=== PATIENT | female | born 1950 | race Caucasian/White ===

== ENCOUNTER 2020-06-22 09:59 | Inpatient (IN) | payer OTHER ==
[~2020-06-22] VITALS: Ht 167.6 cm; Wt 90.6 kg
[2020-06-22] VITALS (20 sets, daily range): BP systolic 84–114; BP diastolic 47–67
--- NOTE | 2020-06-22 10:18 | PDOC1 ---
History and Physical Date of Admission Date of Admission DATE: 06/22/20 TIME: 10:09 History of Present Illness History of Present Illness Ms. 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 On 06/16/2020 she began having symptoms of diarrhea and shortness of breath and went to the ED to have COVID-19 testing, she was notified of the results on 06/17/2020 and asked to quarantine at home for 14 days. Over the course the next 5 days she became progressively more weak had fever and chills and began having myalgias and worsening diarrhea with little bit of abdominal pain. She returned to the ED on 06/21/2020 at [facility] and was found to be hypoxic. ABG on 06/21/2020 7.472/30 5.1/94.3 with HCO3 of 26.2 on nonrebreather 10 L labs on 06 21 sodium 135, K3.2, chloride 99, CO2 25, BUN 17, creatinine 1, glucose 115, lactate 1.9, calcium 8, ferritin 1491, bilirubin 0.4, AST 103, ALT 5 8, AL K phosphatase 62 troponin negative, CRP 129.6, total protein 6.3, albumin 2.7 prealbumin 9, lipase 185, B12 995, procalcitonin 0.40, TSH 1.427, d-dimer 1.16, WBC 7.1, Hb 14.1, platelets 302 chest x-ray on 06 21 read as worsening interstitial and airspace opacities in the right upper lobe and left lung base and worsening interstitial opacities in the right lung base compatible with multifocal pneumonia EKG appears normal sinus rhythm with heart rate approximately 85 bpm with normal axis some inferior T wave changes that are nonspecific no ST segment changes. Seen in our ICU transitioning from nonrebreather to Vapotherm with a significant desaturation into the 70s during transition with quick improvement to 94% on Vapotherm. She is still complaining of weakness and diarrhea to [place] Past Medical History Cardiovascular: No pertinent hx Past Surgical History Past Surgical History 2006 perforated peptic ulcer surgery. Tubal ligation surgery Past Surgical History: Tubal Ligation, Other (Perforated peptic ulcer) Family History Family History: High Cholestrol Social History Smoke: Quit (2005) ALCOHOL: none Drugs: None Allergies Allergies: Coded Allergies: No Known Drug Allergies (Unverified , 06/22/20) ROS General: YES: Chills, Fatigue, Malaise; No: Night Sweats, Appetite, Other PSYCHOLOGICAL ROS: No: Anxiety, Behavioral Disorder, Concentration difficultie, Decreased libido, Depression, Disorientation, Hallucinations, Hostility, Irritablity, Memory difficulties, Mood Swings, Obsessive thoughts, Physical abuse, Sexual abuse, Sleep disturbances, Suicidal ideation, Other Eyes: No Blurry vision, No Decreased vision, No Double vision, No Dry eyes, No Excessive tearing, No Eye Pain, No Itchy Eyes, No Loss of vision, No Photophobia, No Scotomata, No Uses contacts, No Uses glasses, No Other HEENT: No: Heacaches, Visual Changes, Hearing change, Nasal congestion, Nasal discharge, Oral lesions, Sinus pain, Sore Throat, Epistaxis, Sneezing, Snoring, Tinnitus, Vertigo, Vocal changes, Other ALLERGY AND IMMUNOLOGY: No: Hives, Insect Bite Sensitivity, Itchy/Watery Eyes, Nasal Congestion, Post Nasal Drip, Seasonal Allergies, Other Hematological and Lymphatic: YES: Blood Transfusions; No: Bleeding Problems, Blood Clots, Brusing, Night Sweats, Pallor, Swollen Lymph Nodes, Other ENDOCRINE: No: Breast Changes, Galactorrhea, Hair Pattern Changes, Hot Flashes, Malaise/lethargy, Mood Swings, Palpitations, Polydipsia/polyuria, Skin Changes, Temperature Intolerance, Unexpected Weight Changes, Other Breast: No New/Changing Breast Lumps, No Nipple changes, No Nipple discharge, No Other Respiratory: YES: Cough, Shortness of breath, SOB with excertion, Tachypnea, Wheezing; No: Hemoptysis, Orthopnea, Pleuritic Pain, Sputum Changes, Stridor, Other Cardiovascular: No Chest Pain, No Palpitations, No Orthopnea, No Paroxysmal Noc. Dyspnea, No Edema, No Lt Headedness, No Other Gastrointestinal: Yes Nausea, Yes Abdominal Pain, Yes Diarrhea; No Vomiting, No Constipation, No Melena, No Hematochezia, No Other Genitourinary: No Dysuria, No Frequency, No Incontinence, No Hematuria, No Retention, No Discharge, No Urgency, No Pain, No Flank Pain, No Other, No , No , No , No , No , No , No Musculoskeletal: Yes Muscular Weakness; No Gait Disturbance, No Joint Pain, No Joint Stiffness, No Joint Swelling, No Muscle Pain, No Pain In:, No Swelling In:, No Other Neurological: No Behavorial Changes, No Bowel/Bladder ControlChng, No Confusion, No Dizziness, No Gait Disturbance, No Headaches, No Impaired Coord/balance, No Memory Loss, No Numbness/Tingling, No Seizures, No Speech Problems, No Tremors, No Visual Changes, No Weakness, No Other Skin: No Dry Skin, No Eczema, No Hair Changes, No Lumps, No Mole Changes, No Mottling, No Nail Changes, No Pruritus, No Rash, No Skin Lesion Changes, No Other, No Acne Physical Exam General: Alert, Oriented X3, Cooperative, moderate distress HEENT: Atraumatic, PERRLA, EOMI, Mucous membr. moist/pink Lungs: Other (Bilateral rhonchi) Heart: S1S2, RRR, no thrills, no rubs, no gallops, no murmurs Abdomen: Normal bowel sounds, Soft, No tenderness, No hepatosplenomegaly, No masses Rectal Exam: not examined Extremities: No clubbing, No cyanosis, No edema, Normal pulses, No tenderness/swelling Skin: No rashes, No breakdown, No significant lesion Neuro: Normal gait, Normal speech, Strength at 5/5 X4 ext, Normal tone, Sensation intact, Cranial nerves 3-12 NL, Reflexes 2+ Psych/Mental Status: Mental status NL, Mood NL Images Images CXR: 06/21/2020 at [facility] VTE Prophylaxis Ordered VTE Prophylaxis Devices: No VTE Pharmacological Prophylaxi: Yes Assessment/Plan Assessment/Plan A/P: Acute hypoxic respiratory failuresecondary to SARSCo.2 pneumonia. Continue supportive therapy, steroids room to severe protocol initiated on 06 21 will continue here. Consult ID and pulmonology SARS- COV2 pneumonia -continue IV Solu-Medrol wean O2 as tolerated I discussed with pulmonology to move to a negative pressure room if her desaturations worsen and she may need BiPAP.. Will try experimental drug to severe and convalescent plasma therapies with ID and pulmonology. Hypokalemiawill replace, check magnesium level Diarrhealikely COVID-19 related. Will check for C. difficile per protocol if more than 3 bowel movements in a day Transaminitis also likely related COVID-19, will monitor Severe protein calorie malnutritionlikely related to above FEN - General diet PPX - lovenox FULL CODE Dispo - ICU for above CC time 38 minutes Justicifation of Admission Dx: Justifications for Admission: Justification of Admission Dx: Yes Respiratory Failure: Severe Resp Distress FRANKLYN DOMINIQUE MD Jun 22, 2020 10:18
[2020-06-22] MEDS ORDERED: ONDANSETRON PF 4 MG/2 ML VIAL. IV PRN (10:30)
[2020-06-22] MEDS ORDERED: ACETAMINOPHEN 325 MG TABLET. PO PRN (10:30)
[2020-06-22] MEDS ORDERED: ZOLPIDEM 5 MG TABLET. PO PRN (10:30)
[2020-06-22] MEDS ORDERED: PIP/TAZO PER PHARMACY MC PRN (11:00)
--- NOTE | 2020-06-22 11:09 | RAD ---
EXAM: CHEST AP ONLY INDICATION: Reason: COVID 19 / Spl. Instructions: / History: . TECHNIQUE: Single view COMPARISON: None FINDINGS: The heart size is normal. The great vessels appear unremarkable. There is no hilar or mediastinal mass. Lungs show multifocal bilateral airspace opacities, most confluent in the right upper lobe. There is no pleural effusion or pneumothorax. There are no significant osseous abnormalities. IMPRESSION: Bilateral pneumonia, more confluent in the right upper lobe. Electronically signed by: Irene Hsu MD (06/22/2020 11:06 AM) [id number]
[2020-06-22 11:36] LABS: BASE EXCESS ABG -3 mmol/L (-3-3); HCO3 ABG 21 mmol/L (21-28); PCO2 ABG 33 mmHg (35-46); PO2 ABG 64 mmHg (65-108); SAT O2 ABG 92 % (92-99)
[2020-06-22 11:52] LABS: ALBUMIN 2.7 g/dL (3.4-5.0); ALBUMIN/GLOBULIN RATIO 0.7 (1.0-1.7); CREATININE 0.9 mg/dL (0.6-1.0); GFR 62.1; POTASSIUM 3.8 mmol/L (3.5-5.1); TOTAL BILIRUBIN 0.3 mg/dL (0.2-1.0); TOTAL PROTEIN 6.4 g/dL (6.4-8.2)
--- NOTE | 2020-06-22 12:00 | NUR ---
Pt arrived to 112 via EMS from [place] for covid +. Pt placed on bed and placed on ICU monitors. VSS. Vapotherm applied at 40L/100%. Pt does not seem to be in any distress. Dr. Bowers and Dr. Daly at bedside placing orders. Pt received Solumedrol and Zosyn. Pt consented to receiving Covid plasma. All questions answered. Call light at bedside for pt.
[2020-06-22] MEDS: ENOXAPARIN 40 MG/0.4 ML SYRINGE. SQ SCH ×2 (12:12→21:51)
[2020-06-22] MEDS: methylPREDNISolone SOD SUCC PF 40 MG/ML VIAL. IV SCH ×3 (12:12→21:51)
[2020-06-22] MEDS: PIPERACILLIN/TAZOBACTAM 3.375 GM in IV NORMAL SALINE 50ML 50 ML IV SCH ×2 (12:12→18:00)
[2020-06-22] MEDS: ZINC SULFATE 220 MG CAPSULE. PO SCH (12:12)
--- NOTE | 2020-06-22 12:49 | CONS ---
DATE OF CONSULTATION: 06/22/2020 PULMONARY CONSULTATION REASON FOR CONSULTATION: Hypoxic respiratory failure, COVID pneumonia. HISTORY OF PRESENT ILLNESS: The patient is a 70-year-old female who works at [employer] with no known past medical history. She was admitted at [facility] for worsening hypoxia after she was diagnosed with COVID-19 pneumonia. The patient was notified about the results on 06/17/2020 and was asked to be home quarantine for 14 days. However, the last 5 days before hospitalization at [facility], she had become progressively weak, had fever and had chills as well. The patient was placed on a nonrebreather mask and she was hypoxic. Her chest x-ray has shown diffuse bilateral infiltrates. Since [facility] ran out of resources and she was waiting in the ER on a nonrebreather mask, they requested to accept her as a transfer and Dr. Daly who is the hospitalist accepted her as a transfer. At present, she is comfortable. She was transferred on nonrebreather mask. I have placed her on Vapotherm at 40 liters flow and 100% FiO2. X-rays have been ordered. I have reviewed labs from outside facility. Her lactic acid was 1.9. AST was elevated at 103. Her chest x-ray reports were reviewed as well. PAST MEDICAL HISTORY: No chronic medical problem. PAST SURGICAL HISTORY: Perforated peptic ulcer surgery in 2005, history of tubal ligation surgery. FAMILY HISTORY: Dyslipidemia. SOCIAL HISTORY: She no longer smokes. She had minimal tobacco history. ALLERGIES: None. CURRENT MEDICATIONS: Reviewed as listed in the [facility] including Lovenox and IV steroids. REVIEW OF SYSTEMS: Pertinent positive discussed in my present illness, otherwise noncontributory. A 12-point system review was obtained. PHYSICAL EXAMINATION: On examination, which was done visual due to COVID pandemia. Blood pressure stable, pulse ox 95% on current Vapotherm at 40 liters and 100% FiO2. She is in no obvious respiratory distress. She is comfortable. Trace edema on the legs. IMAGING: Chest x-ray has been ordered by the x-rays from outside facility shows bilateral patchy infiltrates. LABORATORY DATA: Labs from [place] have been reviewed. IMPRESSION: 1. Acute hypoxic respiratory failure secondary to COVID-19 pneumonia and acute lung injury. 2. No significant tobacco history. 3. Abnormal chest x-ray consistent with COVID-19 pneumonia. 4. Mildly increased liver function tests. RECOMMENDATIONS: 1. Continue present Vapotherm at 40 liters flow and 100% FiO2. 2. Monitor the course of treatment. If needed, we may use BiPAP and a negative flow room. 3. Add empiric antibiotics. 4. IV steroids since her A-a gradient is widened. 5. Monitor for inflammatory markers. 6. High dose DVT prophylaxis. 7. Consider plasma 8. Discussed with Dr. Daly and discussed with RN and RT. We will follow along with you. Discussed with the patient. Critical care time 37 minutes, which includes review of the chart, labs and data. STEPHEN VALADEZ MD DR: RONIT/moira JOB#: [id number] / [id number] BENJA
[2020-06-22] MEDS: REMDESIVIR 100mg in NORMAL SALINE 250ML X 4 DAYS IV SCH (13:03)
[2020-06-22 13:12] LABS: BASO % 0 % (0-3); EOS % 0 % (0-3); HEMATOCRIT 38.5 % (36.0-47.0); LYMPH # 0.6 x10^3/uL (1.0-4.8); LYMPH % 14 % (24-48); MEAN CORPUSCULAR HEMOGLOBIN 30 pg (25-35); MEAN CORPUSCULAR HGB CONC 34 g/dL (31-37); MEAN CORPUSCULAR VOLUME 89 fL (79-100); MONO # 0.3 x10^3/uL (0.0-1.1); MONO % 6 % (0-9); NEUT # 3.7 x10^3/uL (1.8-7.7); NEUT % 81 % (31-73); PLATELET COUNT 297 x10^3/uL (140-400); PROTHROMBIN TIME PATIENT 13.9 SEC (11.7-14.0); RED BLOOD COUNT 4.34 x10^6/uL (3.50-5.40); RED CELL DISTRIBUTION WIDTH 13.9 % (11.5-14.5); WHITE BLOOD COUNT 4.6 x10^3/uL (4.0-11.0)
--- NOTE | 2020-06-22 14:22 | NUR ---
1400 Solumedrol non administered due to giving previous dose an hour and a half ago.
--- NOTE | 2020-06-22 14:37 | CONS ---
DATE OF CONSULTATION: REQUESTING PHYSICIAN: Jasper Daly MD. REASON FOR CONSULTATION: COVID-19 positive. HISTORY OF PRESENT ILLNESS: This is a 70-year-old female with a history of peptic ulcer disease. Other than that, she is essentially healthy, she says. 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 The patient was diagnosed with COVID-19 on 06/16/2020. The patient was sent home and was quarantined, but then she started having shortness of breath. She had fever and hypoxia, hence came in. The patient came to the [employer]. The patient was admitted and the oxygen requirement went significantly up, hence she was transferred here for further management. The patient denies any nausea, vomiting or diarrhea. Denies any chest pain, abdominal pain, urinary symptoms or bowel symptoms. The patient has been put on steroids and Zosyn. PAST MEDICAL HISTORY: Positive for perforated ulcer surgery done in the past, tubal ligation done. Otherwise, she is healthy, she says. SOCIAL HISTORY: Negative for smoking, alcohol or illicit drug use. ALLERGIES: No known drug allergies. CURRENT MEDICATIONS: Reviewed. REVIEW OF SYSTEMS: As per HPI, all other systems reviewed and are negative. PHYSICAL EXAMINATION: GENERAL: Alert and oriented female, not in distress. VITAL SIGNS: Stable, temperature 97.8, pulse 86, respirations 30, blood pressure 84/56. The patient is requiring 40% FiO2 with Vapotherm. HEENT: NAD. NECK: Supple, no JVP, no lymphadenopathy. LUNGS: Clear. HEART: S1, S2 regular. ABDOMEN: Benign. EXTREMITIES: No edema or cyanosis. SKIN: Unremarkable. NEUROLOGIC: The patient is alert, awake and appropriate. No focal neurologic deficit. LABORATORY DATA: Her AST is 103, ALT is 58. WBC 7.1. BUN and creatinine is normal. Chest x-ray showed bilateral pulmonary infiltrate. IMPRESSION: 1. COVID-19 positive. 2. Bilateral pulmonary infiltrate. 3. Hypoxemia. 4. Obesity. RECOMMENDATIONS: Continue current management. I did discuss with the patient about convalescent plasma and remdesivir. The patient is in agreement with that. We will start with the convalescent plasma and remdesivir. Thank you very much, Dr. Daly, for giving me the opportunity to participate in this patient's care. GLORIA OHARA MD DR: ECOH/moira JOB#: [id number] / [id number]
[2020-06-22] MEDS: STERILE WATER for RESP 1,000 ML BAG. INH PRN (16:44)
[2020-06-23] VITALS (24 sets, daily range): BP systolic 94–129; BP diastolic 42–67
[2020-06-23] MEDS: PIPERACILLIN/TAZOBACTAM 3.375 GM in IV NORMAL SALINE 50ML 50 ML IV SCH ×4 (00:02→17:33)
[2020-06-23] MEDS: STERILE WATER for RESP 1,000 ML BAG. INH PRN ×2 (04:47→16:11)
[2020-06-23] MEDS: methylPREDNISolone SOD SUCC PF 40 MG/ML VIAL. IV SCH ×3 (05:50→21:39)
[2020-06-23 07:09] LABS: BASO % 0 % (0-3); EOS % 0 % (0-3); HEMATOCRIT 37.9 % (36.0-47.0); HEMOGLOBIN 12.7 g/dL (12.0-15.5); LYMPH # 0.7 x10^3/uL (1.0-4.8); LYMPH % 8 % (24-48); MEAN CORPUSCULAR HEMOGLOBIN 30 pg (25-35); MEAN CORPUSCULAR HGB CONC 34 g/dL (31-37); MEAN CORPUSCULAR VOLUME 89 fL (79-100); MONO # 0.5 x10^3/uL (0.0-1.1); MONO % 5 % (0-9); NEUT # 7.5 x10^3/uL (1.8-7.7); NEUT % 87 % (31-73); PLATELET COUNT 355 x10^3/uL (140-400); RED BLOOD COUNT 4.27 x10^6/uL (3.50-5.40); RED CELL DISTRIBUTION WIDTH 14.3 % (11.5-14.5); WHITE BLOOD COUNT 8.6 x10^3/uL (4.0-11.0)
--- NOTE | 2020-06-23 07:55 | PDOC ---
[employer] PROGRESS NOTE Date of Service DOS: DATE: 06/23/20 TIME: 07:54 Chief Complaint Chief Complaint A/P: Acute hypoxic respiratory failuresecondary to SARSCo.2 pneumonia. Continue supportive therapy, steroids room to severe protocol initiated on 06 21 will continue here. Consult ID and pulmonology SARS- COV2 pneumonia -continue IV Solu-Medrol wean O2 as tolerated I discussed with pulmonology to move to a negative pressure room if her desaturations worsen and she may need BiPAP.. Will try experimental drug to severe and convalescent plasma therapies with ID and pulmonology. Hypokalemiawill replace, check magnesium level Diarrhealikely COVID-19 related. Will check for C. 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 On 06/16/2020 she began having symptoms of diarrhea and shortness of breath and went to the ED to have COVID-19 testing, she was notified of the results on 06/17/2020 and asked to quarantine at home for 14 days. Over the course the next 5 days she became progressively more weak had fever and chills and began having myalgias and worsening diarrhea with little bit of abdominal pain. She returned to the ED on 06/21/2020 at [facility] and was found to be hypoxic. ABG on 06/21/2020 7.472/30 5.1/94.3 with HCO3 of 26.2 on nonrebreather 10 L labs on 06 21 sodium 135, K3.2, chloride 99, CO2 25, BUN 17, creatinine 1, glucose 115, lactate 1.9, calcium 8, ferritin 1491, bilirubin 0.4, AST 103, ALT 5 8, AL K phosphatase 62 troponin negative, CRP 129.6, total protein 6.3, albumin 2.7 prealbumin 9, lipase 185, B12 995, procalcitonin 0.40, TSH 1.427, d-dimer 1.16, WBC 7.1, Hb 14.1, platelets 302 chest x-ray on 8 read as worsening interstitial and airspace opacities in the right upper lobe and left lung base and worsening interstitial opacities in the right lung base compatible with multifocal pneumonia EKG appears normal sinus rhythm with heart rate approximately 85 bpm with normal axis some inferior T wave changes that are nonspecific no ST segment changes. Seen in our ICU on Vapotherm. She is still complaining of weakness and diarrhea to me, 2 BM this morning. Afebrile. Still with cough today. Vitals/I&O Vitals/I&O: Vital Signs Date Time Temp Pulse Resp B/P (MAP) Pulse Ox O2 Delivery O2 Flow Rate FiO2 06/23/20 06:00 61 26 112/56 (74) 92 Vapotherm 40.0 06/23/20 04:00 98.3 98.3 I & O 06/22/20 06/22/20 06/23/20 15:00 23:00 07:00 Intake Total 580 ml 748 ml 300 ml Balance 580 ml 748 ml 300 ml Physical Exam General: Alert, Oriented X3, Cooperative, moderate distress Abdomen: Normal bowel sounds, Soft, No tenderness, No hepatosplenomegaly, No masses Extremities: No clubbing, No cyanosis, No edema, Normal pulses, No tenderness/swelling Skin: No rashes, No breakdown, No significant lesion Labs Labs: Laboratory Tests Test 06/22/20 11:10 06/22/20 11:25 06/23/20 05:30 White Blood Count 4.6 x10^3/uL (4.0-11.0) 8.6 x10^3/uL (4.0-11.0) Red Blood Count 4.34 x10^6/uL (3.50-5.40) 4.27 x10^6/uL (3.50-5.40) Hemoglobin 13.0 g/dL (12.0-15.5) 12.7 g/dL (12.0-15.5) Hematocrit 38.5 % (36.0-47.0) 37.9 % (36.0-47.0) Mean Corpuscular Volume 89 fL (79-100) 89 fL (79-100) Mean Corpuscular Hemoglobin 30 pg (25-35) 30 pg (25-35) Mean Corpuscular Hemoglobin Concent 34 g/dL (31-37) 34 g/dL (31-37) Red Cell Distribution Width 13.9 % (11.5-14.5) 14.3 % (11.5-14.5) Platelet Count 297 x10^3/uL (140-400) 355 x10^3/uL (140-400) Neutrophils (%) (Auto) 81 % (31-73) 87 % (31-73) Lymphocytes (%) (Auto) 14 % (24-48) 8 % (24-48) Monocytes (%) (Auto) 6 % (0-9) 5 % (0-9) Eosinophils (%) (Auto) 0 % (0-3) 0 % (0-3) Basophils (%) (Auto) 0 % (0-3) 0 % (0-3) Neutrophils # (Auto) 3.7 x10^3/uL (1.8-7.7) 7.5 x10^3/uL (1.8-7.7) Lymphocytes # (Auto) 0.6 x10^3/uL (1.0-4.8) 0.7 x10^3/uL (1.0-4.8) Monocytes # (Auto) 0.3 x10^3/uL (0.0-1.1) 0.5 x10^3/uL (0.0-1.1) Eosinophils # (Auto) 0.0 x10^3/uL (0.0-0.7) 0.0 x10^3/uL (0.0-0.7) Basophils # (Auto) 0.0 x10^3/uL (0.0-0.2) 0.0 x10^3/uL (0.0-0.2) Prothrombin Time 13.9 SEC (11.7-14.0) Prothromb Time International Ratio 1.1 (0.8-1.1) Sodium Level 142 mmol/L (136-145) Potassium Level 3.8 mmol/L (3.5-5.1) Chloride Level 108 mmol/L (98-107) Carbon Dioxide Level 27 mmol/L (21-32) Anion Gap 7 (6-14) Blood Urea Nitrogen 21 mg/dL (7-20) Creatinine 0.9 mg/dL (0.6-1.0) Estimated GFR (Cockcroft-Gault) 62.1 BUN/Creatinine Ratio 23 (6-20) Glucose Level 143 mg/dL (70-99) Calcium Level 8.0 mg/dL (8.5-10.1) Total Bilirubin 0.3 mg/dL (0.2-1.0) Aspartate Amino Transf (AST/SGOT) 63 U/L (15-37) Alanine Aminotransferase (ALT/SGPT) 44 U/L (14-59) Alkaline Phosphatase 50 U/L (46-116) US-Aiq-I-Type Natriuretic Peptide 968 pg/mL (0-124) Total Protein 6.4 g/dL (6.4-8.2) Albumin 2.7 g/dL (3.4-5.0) Albumin/Globulin Ratio 0.7 (1.0-1.7) O2 Saturation 92 % (92-99) Arterial Blood pH 7.42 (7.35-7.45) Arterial Blood pCO2 at Patient Temp 33 mmHg (35-46) Arterial Blood pO2 at Patient Temp 64 mmHg (65-108) Arterial Blood HCO3 21 mmol/L (21-28) Arterial Blood Base Excess -3 mmol/L (-3-3) FiO2 100% vapotherm Comment Review of Relevant I have reviewed the following items helen (where applicable) has been applied. Medications: Current Medications Medications (Trade) Dose Ordered Sig/Karin Route PRN Reason Start Time Stop Time Status Last Admin Dose Admin Enoxaparin Sodium (Lovenox 40mg Syringe) 40 mg Q12HR SQ 06/22/20 10:30 06/22/20 21:51 Methylprednisolone Sodium Succinate (SOLU-Medrol 40MG VIAL) 40 mg Q8HRS IV 06/22/20 10:30 06/23/20 05:50 Zinc Sulfate (Orazinc) 220 mg DAILY PO 06/22/20 11:00 06/22/20 12:12 Piperacillin Sod/ Tazobactam Sod 3.375 gm/Sodium Chloride 50 ml @ 100 mls/hr Q6HRS IV 06/22/20 12:00 06/23/20 05:50 Non-Formulary Medication 1 ea/ Sodium Chloride 230 ml @ 460 mls/hr Q24H IV 06/22/20 13:00 06/25/20 13:29 06/22/20 13:03 Sterile Water (WATER for RESP) 1,000 ml CONT PRN INH VIA VAPOTHERM DEVICE 06/22/20 16:15 06/23/20 04:47 Justicifation of Admission Dx: Justifications for Admission: Justification of Admission Dx: Yes Respiratory Failure: Severe Resp Distress FRANKLYN DOMINIQUE MD Jun 23, 2020 07:55
[2020-06-23 08:02] LABS: BASE EXCESS COOX 0 mmol/L (-3-3); HCO3 COOX 25 mmol/L (21-28); METHEMOGLOBIN 0.3 % (0.0-1.9); OXYHEMOGLOBIN 86.9 %; PCO2 COOX 40 mmHg (35-46); PO2 COOX 53 mmHg (65-108); SAT O2 COOX 87 % (92-99)
--- NOTE | 2020-06-23 08:08 | PDOC ---
Infectious Disease Note Subjective Subjective pt is feeling ok, still requiring a lot of o2 ROS ROS no n/v/d/fever Vital Sign Vital Signs Vital Signs Date Time Temp Pulse Resp B/P (MAP) Pulse Ox O2 Delivery O2 Flow Rate FiO2 06/23/20 07:48 96 Vapotherm 40.0 06/23/20 06:00 61 26 112/56 (74) 06/23/20 04:00 98.3 98.3 Physical Exam PHYSICAL EXAM GENERAL: Alert and oriented female, not in distress. VITAL SIGNS: Stable, HEENT: NAD. NECK: Supple, no JVP, no lymphadenopathy. LUNGS: Clear. HEART: S1, S2 regular. ABDOMEN: Benign. EXTREMITIES: No edema or cyanosis. SKIN: Unremarkable. NEUROLOGIC: The patient is alert, awake and appropriate. No focal neurologic deficit. Labs Lab Laboratory Tests Test 06/22/20 11:10 06/22/20 11:25 06/23/20 05:30 06/23/20 07:55 White Blood Count 4.6 x10^3/uL (4.0-11.0) 8.6 x10^3/uL (4.0-11.0) Red Blood Count 4.34 x10^6/uL (3.50-5.40) 4.27 x10^6/uL (3.50-5.40) Hemoglobin 13.0 g/dL (12.0-15.5) 12.7 g/dL (12.0-15.5) Hematocrit 38.5 % (36.0-47.0) 37.9 % (36.0-47.0) Mean Corpuscular Volume 89 fL (79-100) 89 fL (79-100) Mean Corpuscular Hemoglobin 30 pg (25-35) 30 pg (25-35) Mean Corpuscular Hemoglobin Concent 34 g/dL (31-37) 34 g/dL (31-37) Red Cell Distribution Width 13.9 % (11.5-14.5) 14.3 % (11.5-14.5) Platelet Count 297 x10^3/uL (140-400) 355 x10^3/uL (140-400) Neutrophils (%) (Auto) 81 % (31-73) 87 % (31-73) Lymphocytes (%) (Auto) 14 % (24-48) 8 % (24-48) Monocytes (%) (Auto) 6 % (0-9) 5 % (0-9) Eosinophils (%) (Auto) 0 % (0-3) 0 % (0-3) Basophils (%) (Auto) 0 % (0-3) 0 % (0-3) Neutrophils # (Auto) 3.7 x10^3/uL (1.8-7.7) 7.5 x10^3/uL (1.8-7.7) Lymphocytes # (Auto) 0.6 x10^3/uL (1.0-4.8) 0.7 x10^3/uL (1.0-4.8) Monocytes # (Auto) 0.3 x10^3/uL (0.0-1.1) 0.5 x10^3/uL (0.0-1.1) Eosinophils # (Auto) 0.0 x10^3/uL (0.0-0.7) 0.0 x10^3/uL (0.0-0.7) Basophils # (Auto) 0.0 x10^3/uL (0.0-0.2) 0.0 x10^3/uL (0.0-0.2) Prothrombin Time 13.9 SEC (11.7-14.0) Prothromb Time International Ratio 1.1 (0.8-1.1) Sodium Level 142 mmol/L (136-145) Potassium Level 3.8 mmol/L (3.5-5.1) Chloride Level 108 mmol/L (98-107) Carbon Dioxide Level 27 mmol/L (21-32) Anion Gap 7 (6-14) Blood Urea Nitrogen 21 mg/dL (7-20) Creatinine 0.9 mg/dL (0.6-1.0) Estimated GFR (Cockcroft-Gault) 62.1 BUN/Creatinine Ratio 23 (6-20) Glucose Level 143 mg/dL (70-99) Calcium Level 8.0 mg/dL (8.5-10.1) Total Bilirubin 0.3 mg/dL (0.2-1.0) Aspartate Amino Transf (AST/SGOT) 63 U/L (15-37) Alanine Aminotransferase (ALT/SGPT) 44 U/L (14-59) Alkaline Phosphatase 50 U/L (46-116) TE-Xvn-F-Type Natriuretic Peptide 968 pg/mL (0-124) Total Protein 6.4 g/dL (6.4-8.2) Albumin 2.7 g/dL (3.4-5.0) Albumin/Globulin Ratio 0.7 (1.0-1.7) O2 Saturation 92 % (92-99) 87 % (92-99) Arterial Blood pH 7.42 (7.35-7.45) 7.41 (7.35-7.45) Arterial Blood pCO2 at Patient Temp 33 mmHg (35-46) 40 mmHg (35-46) Arterial Blood pO2 at Patient Temp 64 mmHg (65-108) 53 mmHg (65-108) Arterial Blood HCO3 21 mmol/L (21-28) 25 mmol/L (21-28) Arterial Blood Base Excess -3 mmol/L (-3-3) 0 mmol/L (-3-3) FiO2 100% vapotherm 100% Oxyhemoglobin 86.9 % Methemoglobin 0.3 % (0.0-1.9) Carbon Monoxide, Quantitative 0.3 % (0.0-1.9) Objective Assessment IMPRESSION: 1. COVID-19 positive. 2. Bilateral pulmonary infiltrate. 3. Hypoxemia. 4. Obesity. Plan Plan of Care cont supportive care covid con plasma given on Remdesivir GLORIA OHARA MD Jun 23, 2020 08:08
[2020-06-23] MEDS: ZINC SULFATE 220 MG CAPSULE. PO SCH (09:28)
[2020-06-23] MEDS: ENOXAPARIN 40 MG/0.4 ML SYRINGE. SQ SCH ×2 (09:28→20:31)
--- NOTE | 2020-06-23 09:31 | PDOC ---
PULMONARY PROGRESS NOTES DATE: 06/23/20 TIME: 09:26 Subjective reports SOB at rest, non-productive cough nursing reports oxygen desaturation with minimal activity Vitals Vital Signs Date Time Temp Pulse Resp B/P (MAP) Pulse Ox O2 Delivery O2 Flow Rate FiO2 06/23/20 07:48 96 Vapotherm 40.0 06/23/20 07:00 50 30 101/55 (70) 06/23/20 04:00 98.3 98.3 Comments Visual exam preformed pt. seen during COVID 19 Pandemic Vapotherm 100% RRR, no edema No rash ROS: No Nausea, No Chest Pain, No Abdominal Pain, No Increase Cough Labs Laboratory Tests Test 06/22/20 11:10 06/22/20 11:25 06/23/20 05:30 06/23/20 07:55 White Blood Count 4.6 x10^3/uL (4.0-11.0) 8.6 x10^3/uL (4.0-11.0) Red Blood Count 4.34 x10^6/uL (3.50-5.40) 4.27 x10^6/uL (3.50-5.40) Hemoglobin 13.0 g/dL (12.0-15.5) 12.7 g/dL (12.0-15.5) Hematocrit 38.5 % (36.0-47.0) 37.9 % (36.0-47.0) Mean Corpuscular Volume 89 fL (79-100) 89 fL (79-100) Mean Corpuscular Hemoglobin 30 pg (25-35) 30 pg (25-35) Mean Corpuscular Hemoglobin Concent 34 g/dL (31-37) 34 g/dL (31-37) Red Cell Distribution Width 13.9 % (11.5-14.5) 14.3 % (11.5-14.5) Platelet Count 297 x10^3/uL (140-400) 355 x10^3/uL (140-400) Neutrophils (%) (Auto) 81 % (31-73) 87 % (31-73) Lymphocytes (%) (Auto) 14 % (24-48) 8 % (24-48) Monocytes (%) (Auto) 6 % (0-9) 5 % (0-9) Eosinophils (%) (Auto) 0 % (0-3) 0 % (0-3) Basophils (%) (Auto) 0 % (0-3) 0 % (0-3) Neutrophils # (Auto) 3.7 x10^3/uL (1.8-7.7) 7.5 x10^3/uL (1.8-7.7) Lymphocytes # (Auto) 0.6 x10^3/uL (1.0-4.8) 0.7 x10^3/uL (1.0-4.8) Monocytes # (Auto) 0.3 x10^3/uL (0.0-1.1) 0.5 x10^3/uL (0.0-1.1) Eosinophils # (Auto) 0.0 x10^3/uL (0.0-0.7) 0.0 x10^3/uL (0.0-0.7) Basophils # (Auto) 0.0 x10^3/uL (0.0-0.2) 0.0 x10^3/uL (0.0-0.2) Prothrombin Time 13.9 SEC (11.7-14.0) Prothromb Time International Ratio 1.1 (0.8-1.1) Sodium Level 142 mmol/L (136-145) Potassium Level 3.8 mmol/L (3.5-5.1) Chloride Level 108 mmol/L (98-107) Carbon Dioxide Level 27 mmol/L (21-32) Anion Gap 7 (6-14) Blood Urea Nitrogen 21 mg/dL (7-20) Creatinine 0.9 mg/dL (0.6-1.0) Estimated GFR (Cockcroft-Gault) 62.1 BUN/Creatinine Ratio 23 (6-20) Glucose Level 143 mg/dL (70-99) Calcium Level 8.0 mg/dL (8.5-10.1) Total Bilirubin 0.3 mg/dL (0.2-1.0) Aspartate Amino Transf (AST/SGOT) 63 U/L (15-37) Alanine Aminotransferase (ALT/SGPT) 44 U/L (14-59) Alkaline Phosphatase 50 U/L (46-116) VM-Okb-B-Type Natriuretic Peptide 968 pg/mL (0-124) Total Protein 6.4 g/dL (6.4-8.2) Albumin 2.7 g/dL (3.4-5.0) Albumin/Globulin Ratio 0.7 (1.0-1.7) O2 Saturation 92 % (92-99) 87 % (92-99) Arterial Blood pH 7.42 (7.35-7.45) 7.41 (7.35-7.45) Arterial Blood pCO2 at Patient Temp 33 mmHg (35-46) 40 mmHg (35-46) Arterial Blood pO2 at Patient Temp 64 mmHg (65-108) 53 mmHg (65-108) Arterial Blood HCO3 21 mmol/L (21-28) 25 mmol/L (21-28) Arterial Blood Base Excess -3 mmol/L (-3-3) 0 mmol/L (-3-3) FiO2 100% vapotherm 100% Oxyhemoglobin 86.9 % Methemoglobin 0.3 % (0.0-1.9) Carbon Monoxide, Quantitative 0.3 % (0.0-1.9) Laboratory Tests Test 06/22/20 11:10 06/22/20 11:25 06/23/20 05:30 06/23/20 07:55 White Blood Count 4.6 x10^3/uL (4.0-11.0) 8.6 x10^3/uL (4.0-11.0) Red Blood Count 4.34 x10^6/uL (3.50-5.40) 4.27 x10^6/uL (3.50-5.40) Hemoglobin 13.0 g/dL (12.0-15.5) 12.7 g/dL (12.0-15.5) Hematocrit 38.5 % (36.0-47.0) 37.9 % (36.0-47.0) Mean Corpuscular Volume 89 fL (79-100) 89 fL (79-100) Mean Corpuscular Hemoglobin 30 pg (25-35) 30 pg (25-35) Mean Corpuscular Hemoglobin Concent 34 g/dL (31-37) 34 g/dL (31-37) Red Cell Distribution Width 13.9 % (11.5-14.5) 14.3 % (11.5-14.5) Platelet Count 297 x10^3/uL (140-400) 355 x10^3/uL (140-400) Neutrophils (%) (Auto) 81 % (31-73) 87 % (31-73) Lymphocytes (%) (Auto) 14 % (24-48) 8 % (24-48) Monocytes (%) (Auto) 6 % (0-9) 5 % (0-9) Eosinophils (%) (Auto) 0 % (0-3) 0 % (0-3) Basophils (%) (Auto) 0 % (0-3) 0 % (0-3) Neutrophils # (Auto) 3.7 x10^3/uL (1.8-7.7) 7.5 x10^3/uL (1.8-7.7) Lymphocytes # (Auto) 0.6 x10^3/uL (1.0-4.8) 0.7 x10^3/uL (1.0-4.8) Monocytes # (Auto) 0.3 x10^3/uL (0.0-1.1) 0.5 x10^3/uL (0.0-1.1) Eosinophils # (Auto) 0.0 x10^3/uL (0.0-0.7) 0.0 x10^3/uL (0.0-0.7) Basophils # (Auto) 0.0 x10^3/uL (0.0-0.2) 0.0 x10^3/uL (0.0-0.2) Prothrombin Time 13.9 SEC (11.7-14.0) Prothromb Time International Ratio 1.1 (0.8-1.1) Sodium Level 142 mmol/L (136-145) Potassium Level 3.8 mmol/L (3.5-5.1) Chloride Level 108 mmol/L (98-107) Carbon Dioxide Level 27 mmol/L (21-32) Anion Gap 7 (6-14) Blood Urea Nitrogen 21 mg/dL (7-20) Creatinine 0.9 mg/dL (0.6-1.0) Estimated GFR (Cockcroft-Gault) 62.1 BUN/Creatinine Ratio 23 (6-20) Glucose Level 143 mg/dL (70-99) Calcium Level 8.0 mg/dL (8.5-10.1) Total Bilirubin 0.3 mg/dL (0.2-1.0) Aspartate Amino Transf (AST/SGOT) 63 U/L (15-37) Alanine Aminotransferase (ALT/SGPT) 44 U/L (14-59) Alkaline Phosphatase 50 U/L (46-116) SE-Zxd-I-Type Natriuretic Peptide 968 pg/mL (0-124) Total Protein 6.4 g/dL (6.4-8.2) Albumin 2.7 g/dL (3.4-5.0) Albumin/Globulin Ratio 0.7 (1.0-1.7) O2 Saturation 92 % (92-99) 87 % (92-99) Arterial Blood pH 7.42 (7.35-7.45) 7.41 (7.35-7.45) Arterial Blood pCO2 at Patient Temp 33 mmHg (35-46) 40 mmHg (35-46) Arterial Blood pO2 at Patient Temp 64 mmHg (65-108) 53 mmHg (65-108) Arterial Blood HCO3 21 mmol/L (21-28) 25 mmol/L (21-28) Arterial Blood Base Excess -3 mmol/L (-3-3) 0 mmol/L (-3-3) FiO2 100% vapotherm 100% Oxyhemoglobin 86.9 % Methemoglobin 0.3 % (0.0-1.9) Carbon Monoxide, Quantitative 0.3 % (0.0-1.9) Comments CXR IMPRESSION: Bilateral pneumonia, more confluent in the right upper lobe. Impression . IMPRESSION: 1. Acute hypoxic respiratory failure secondary to COVID-19 pneumonia and acute lung injury. 2. No significant tobacco history. 3. Abnormal chest x-ray consistent with COVID-19 pneumonia. 4. Mildly increased liver function tests. Plan . RECOMMENDATIONS: 1. Continue present Vapotherm at 40 liters flow and 100% FiO2. 2. Monitor the course of treatment. If needed, we may use BiPAP and a negative flow room. 3. Cont. antibiotics. 4. cont. IV steroids 5. Monitor for inflammatory markers, will check DDimer today 6. High dose DVT prophylaxis. 7. S/P convalescent plasma on 06/22/2020 and remdesivir. 8. Discussed with RN and RT. Critical care time 37 minutes, which includes review of the chart, labs and data. STEPHEN VALADEZ MD Jun 23, 2020 09:31
--- NOTE | 2020-06-23 10:35 | NUR ---
SS following for discharge planning. SS reviewed pt chart and discussed with pt RN. Pt is from home with spouse and is currently on Vapotherm. COVID19 positive. Pt on IV Zosyn and Remdesivir. SS will continue to follow for discharge planning.
[2020-06-23] MEDS: REMDESIVIR 100mg in NORMAL SALINE 250ML X 4 DAYS IV SCH (13:27)
[2020-06-23] MEDS: LACTOBACILLUS RHAMNOSUS GG 1 CAPSULE. PO SCH (20:29)
[2020-06-24] VITALS (24 sets, daily range): BP systolic 105–140; BP diastolic 50–69
[2020-06-24] MEDS: PIPERACILLIN/TAZOBACTAM 3.375 GM in IV NORMAL SALINE 50ML 50 ML IV SCH ×4 (00:12→19:11)
[2020-06-24] MEDS: methylPREDNISolone SOD SUCC PF 40 MG/ML VIAL. IV SCH ×3 (06:12→21:33)
--- NOTE | 2020-06-24 08:03 | PDOC ---
[employer] PROGRESS NOTE Date of Service DOS: DATE: 06/24/20 TIME: 08:02 Chief Complaint Chief Complaint A/P: Acute hypoxic respiratory failuresecondary to SARSCo.2 pneumonia. Continue supportive therapy, steroids room to severe protocol initiated on 06 21 will continue here. Consult ID and pulmonology SARS- COV2 pneumonia -continue IV Solu-Medrol wean O2 as tolerated I discussed with pulmonology to move to a negative pressure room if her desaturations worsen and she may need BiPAP.. Will try experimental drug to severe and convalescent plasma therapies with ID and pulmonology. Hypokalemiawill replace, check magnesium level Diarrhealikely COVID-19 related. Will check for C. 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 On 06/16/2020 she began having symptoms of diarrhea and shortness of breath and went to the ED to have COVID-19 testing, she was notified of the results on 06/17/2020 and asked to quarantine at home for 14 days. Over the course the next 5 days she became progressively more weak had fever and chills and began having myalgias and worsening diarrhea with little bit of abdominal pain. She returned to the ED on 06/21/2020 at [facility] and was found to be hypoxic. ABG on 06/21/2020 7.472/30 5.1/94.3 with HCO3 of 26.2 on nonrebreather 10 L labs on 06 21 sodium 135, K3.2, chloride 99, CO2 25, BUN 17, creatinine 1, glucose 115, lactate 1.9, calcium 8, ferritin 1491, bilirubin 0.4, AST 103, ALT 5 8, AL K phosphatase 62 troponin negative, CRP 129.6, total protein 6.3, albumin 2.7 prealbumin 9, lipase 185, B12 995, procalcitonin 0.40, TSH 1.427, d-dimer 1.16, WBC 7.1, Hb 14.1, platelets 302 chest x-ray on 06 21 read as worsening interstitial and airspace opacities in the right upper lobe and left lung base and worsening interstitial opacities in the right lung base compatible with multifocal pneumonia EKG appears normal sinus rhythm with heart rate approximately 85 bpm with normal axis some inferior T wave changes that are nonspecific no ST segment changes. 06/23: Seen in our ICU on Vapotherm. She is still complaining of weakness and diarrhea to me, 2 BM this morning. Afebrile. Still with cough today. O2 53 on Vapotherm. Remdesivir and convalescent FFP given O2 63 on ABG this morning after BIPAP overnight. She feels a bit improved, appetite improved. No diarrhea yet today. Still weak with myalgias. Vitals/I&O Vitals/I&O: Vital Signs Date Time Temp Pulse Resp B/P (MAP) Pulse Ox O2 Delivery O2 Flow Rate FiO2 06/24/20 07:00 55 22 112/53 (72) 96 BiPAP/CPAP 06/24/20 04:00 97.4 97.4 06/23/20 23:00 40.0 I & O 06/23/20 06/23/20 06/24/20 15:00 23:00 07:00 Intake Total 720 ml 480 ml 0 ml Output Total 440 ml 250 ml 0 ml Balance 280 ml 230 ml 0 ml Physical Exam Physical Exam: GENERAL: Alert and oriented female, not in distress. VITAL SIGNS: Stable, HEENT: NAD. NECK: Supple, no JVP, no lymphadenopathy. LUNGS: Clear. HEART: S1, S2 regular. ABDOMEN: Benign. EXTREMITIES: No edema or cyanosis. SKIN: Unremarkable. NEUROLOGIC: The patient is alert, awake and appropriate. No focal neurologic deficit. General: Alert, Oriented X3, Cooperative, moderate distress Abdomen: Normal bowel sounds, Soft, No tenderness, No hepatosplenomegaly, No masses Extremities: No clubbing, No cyanosis, No edema, Normal pulses, No tenderness/swelling Skin: No rashes, No breakdown, No significant lesion Labs Labs: Laboratory Tests Test 06/23/20 10:43 D-Dimer (Iraida) 0.87 ug/mlFEU (0.00-0.50) Comment Review of Relevant I have reviewed the following items helen (where applicable) has been applied. Medications: Current Medications Medications (Trade) Dose Ordered Sig/Karin Route PRN Reason Start Time Stop Time Status Last Admin Dose Admin Lactobacillus Rhamnosus (Culturelle) 1 cap BID PO 06/23/20 21:00 06/23/20 20:29 Justicifation of Admission Dx: Justifications for Admission: Justification of Admission Dx: Yes Respiratory Failure: Severe Resp Distress FRANKLYN DOMINIQUE MD Jun 24, 2020 08:03
[2020-06-24 08:24] LABS: BASO % 0 % (0-3); EOS % 0 % (0-3); HEMATOCRIT 38.7 % (36.0-47.0); HEMOGLOBIN 12.9 g/dL (12.0-15.5); LYMPH # 0.6 x10^3/uL (1.0-4.8); LYMPH % 6 % (24-48); MEAN CORPUSCULAR HEMOGLOBIN 30 pg (25-35); MEAN CORPUSCULAR HGB CONC 33 g/dL (31-37); MEAN CORPUSCULAR VOLUME 89 fL (79-100); MONO # 0.6 x10^3/uL (0.0-1.1); MONO % 6 % (0-9); NEUT # 8.8 x10^3/uL (1.8-7.7); NEUT % 88 % (31-73); PLATELET COUNT 377 x10^3/uL (140-400); RED BLOOD COUNT 4.35 x10^6/uL (3.50-5.40); RED CELL DISTRIBUTION WIDTH 14.2 % (11.5-14.5); WHITE BLOOD COUNT 9.9 x10^3/uL (4.0-11.0)
[2020-06-24] MEDS: ZINC SULFATE 220 MG CAPSULE. PO SCH (08:26)
[2020-06-24] MEDS: LACTOBACILLUS RHAMNOSUS GG 1 CAPSULE. PO SCH ×2 (08:26→20:15)
[2020-06-24] MEDS: ENOXAPARIN 40 MG/0.4 ML SYRINGE. SQ SCH ×2 (08:27→20:15)
[2020-06-24 08:28] LABS: BASE EXCESS ABG 1 mmol/L (-3-3); HCO3 ABG 25 mmol/L (21-28); PCO2 ABG 37 mmHg (35-46); PO2 ABG 63 mmHg (65-108); SAT O2 ABG 92 % (92-99)
--- NOTE | 2020-06-24 08:33 | PDOC ---
Infectious Disease Note Subjective Subjective pt is feeling ok, still requiring a lot of o2 ROS ROS no n/v/d/fever Vital Sign Vital Signs Vital Signs Date Time Temp Pulse Resp B/P (MAP) Pulse Ox O2 Delivery O2 Flow Rate FiO2 06/24/20 07:00 55 22 112/53 (72) 96 BiPAP/CPAP 06/24/20 04:00 97.4 97.4 06/23/20 23:00 40.0 Physical Exam PHYSICAL EXAM GENERAL: Alert and oriented female, not in distress. VITAL SIGNS: Stable, HEENT: NAD. NECK: Supple, no JVP, no lymphadenopathy. LUNGS: Clear. HEART: S1, S2 regular. ABDOMEN: Benign. EXTREMITIES: No edema or cyanosis. SKIN: Unremarkable. NEUROLOGIC: The patient is alert, awake and appropriate. No focal neurologic deficit. Labs Lab Laboratory Tests Test 06/23/20 10:43 06/24/20 07:25 D-Dimer (Iraida) 0.87 ug/mlFEU (0.00-0.50) White Blood Count 9.9 x10^3/uL (4.0-11.0) Red Blood Count 4.35 x10^6/uL (3.50-5.40) Hemoglobin 12.9 g/dL (12.0-15.5) Hematocrit 38.7 % (36.0-47.0) Mean Corpuscular Volume 89 fL (79-100) Mean Corpuscular Hemoglobin 30 pg (25-35) Mean Corpuscular Hemoglobin Concent 33 g/dL (31-37) Red Cell Distribution Width 14.2 % (11.5-14.5) Platelet Count 377 x10^3/uL (140-400) Neutrophils (%) (Auto) 88 % (31-73) Lymphocytes (%) (Auto) 6 % (24-48) Monocytes (%) (Auto) 6 % (0-9) Eosinophils (%) (Auto) 0 % (0-3) Basophils (%) (Auto) 0 % (0-3) Neutrophils # (Auto) 8.8 x10^3/uL (1.8-7.7) Lymphocytes # (Auto) 0.6 x10^3/uL (1.0-4.8) Monocytes # (Auto) 0.6 x10^3/uL (0.0-1.1) Eosinophils # (Auto) 0.0 x10^3/uL (0.0-0.7) Basophils # (Auto) 0.0 x10^3/uL (0.0-0.2) Objective Assessment IMPRESSION: 1. COVID-19 positive. 2. Bilateral pulmonary infiltrate. 3. Hypoxemia. 4. Obesity. Plan Plan of Care cont supportive care covid con plasma given on Remdesivir steroids GLORIA OHARA MD Jun 24, 2020 08:33
[2020-06-24 08:42] LABS: ALBUMIN 2.4 g/dL (3.4-5.0); ALBUMIN/GLOBULIN RATIO 0.7 (1.0-1.7); CREATININE 0.8 mg/dL (0.6-1.0); GFR 71.1; POTASSIUM 3.6 mmol/L (3.5-5.1); TOTAL BILIRUBIN 0.5 mg/dL (0.2-1.0); TOTAL PROTEIN 5.8 g/dL (6.4-8.2)
[2020-06-24 08:45] LABS: FIO2 ABG BIPAP 90%
[2020-06-24 09:37] LABS: % BANDS 2 % (0-9); % LYMPHS 4 % (24-48); % MONOS 7 % (0-10); % SEGS 87 % (35-66); NUCLEATED RBC 1; PLT ESTIMATE ADEQUATE (ADEQUATE)
--- NOTE | 2020-06-24 11:58 | PDOC ---
PULMONARY PROGRESS NOTES DATE: 06/24/20 TIME: 11:55 Subjective on BIPAP, 100%FIO2 nursing reports oxygen desaturation with minimal activity Vitals Vital Signs Date Time Temp Pulse Resp B/P (MAP) Pulse Ox O2 Delivery O2 Flow Rate FiO2 06/24/20 11:50 98 BiPAP/CPAP 06/24/20 11:00 63 26 105/52 (69) 06/24/20 08:00 97.6 97.6 06/23/20 23:00 40.0 Comments Visual exam preformed pt. seen during COVID 19 Pandemic Vapotherm 100% RRR, no edema No rash ROS: No Nausea, No Chest Pain, No Abdominal Pain, No Increase Cough Labs Laboratory Tests Test 06/23/20 05:30 06/23/20 07:55 06/23/20 10:43 06/24/20 07:25 White Blood Count 8.6 x10^3/uL (4.0-11.0) 9.9 x10^3/uL (4.0-11.0) Red Blood Count 4.27 x10^6/uL (3.50-5.40) 4.35 x10^6/uL (3.50-5.40) Hemoglobin 12.7 g/dL (12.0-15.5) 12.9 g/dL (12.0-15.5) Hematocrit 37.9 % (36.0-47.0) 38.7 % (36.0-47.0) Mean Corpuscular Volume 89 fL (79-100) 89 fL (79-100) Mean Corpuscular Hemoglobin 30 pg (25-35) 30 pg (25-35) Mean Corpuscular Hemoglobin Concent 34 g/dL (31-37) 33 g/dL (31-37) Red Cell Distribution Width 14.3 % (11.5-14.5) 14.2 % (11.5-14.5) Platelet Count 355 x10^3/uL (140-400) 377 x10^3/uL (140-400) Neutrophils (%) (Auto) 87 % (31-73) 88 % (31-73) Lymphocytes (%) (Auto) 8 % (24-48) 6 % (24-48) Monocytes (%) (Auto) 5 % (0-9) 6 % (0-9) Eosinophils (%) (Auto) 0 % (0-3) 0 % (0-3) Basophils (%) (Auto) 0 % (0-3) 0 % (0-3) Neutrophils # (Auto) 7.5 x10^3/uL (1.8-7.7) 8.8 x10^3/uL (1.8-7.7) Lymphocytes # (Auto) 0.7 x10^3/uL (1.0-4.8) 0.6 x10^3/uL (1.0-4.8) Monocytes # (Auto) 0.5 x10^3/uL (0.0-1.1) 0.6 x10^3/uL (0.0-1.1) Eosinophils # (Auto) 0.0 x10^3/uL (0.0-0.7) 0.0 x10^3/uL (0.0-0.7) Basophils # (Auto) 0.0 x10^3/uL (0.0-0.2) 0.0 x10^3/uL (0.0-0.2) O2 Saturation 87 % (92-99) Arterial Blood pH 7.41 (7.35-7.45) Arterial Blood pCO2 at Patient Temp 40 mmHg (35-46) Arterial Blood pO2 at Patient Temp 53 mmHg (65-108) Arterial Blood HCO3 25 mmol/L (21-28) Arterial Blood Base Excess 0 mmol/L (-3-3) Oxyhemoglobin 86.9 % Methemoglobin 0.3 % (0.0-1.9) Carbon Monoxide, Quantitative 0.3 % (0.0-1.9) FiO2 100% D-Dimer (Iraida) 0.87 ug/mlFEU (0.00-0.50) Segmented Neutrophils % 87 % (35-66) Band Neutrophils % 2 % (0-9) Lymphocytes % 4 % (24-48) Monocytes % 7 % (0-10) Nucleated Red Blood Cells 1 Platelet Estimate Adequate (ADEQUATE) Sodium Level 148 mmol/L (136-145) Potassium Level 3.6 mmol/L (3.5-5.1) Chloride Level 111 mmol/L (98-107) Carbon Dioxide Level 28 mmol/L (21-32) Anion Gap 9 (6-14) Blood Urea Nitrogen 24 mg/dL (7-20) Creatinine 0.8 mg/dL (0.6-1.0) Estimated GFR (Cockcroft-Gault) 71.1 BUN/Creatinine Ratio 30 (6-20) Glucose Level 120 mg/dL (70-99) Calcium Level 8.0 mg/dL (8.5-10.1) Total Bilirubin 0.5 mg/dL (0.2-1.0) Aspartate Amino Transf (AST/SGOT) 41 U/L (15-37) Alanine Aminotransferase (ALT/SGPT) 40 U/L (14-59) Alkaline Phosphatase 67 U/L (46-116) Total Protein 5.8 g/dL (6.4-8.2) Albumin 2.4 g/dL (3.4-5.0) Albumin/Globulin Ratio 0.7 (1.0-1.7) Test 06/24/20 08:00 O2 Saturation 92 % (92-99) Arterial Blood pH 7.44 (7.35-7.45) Arterial Blood pCO2 at Patient Temp 37 mmHg (35-46) Arterial Blood pO2 at Patient Temp 63 mmHg (65-108) Arterial Blood HCO3 25 mmol/L (21-28) Arterial Blood Base Excess 1 mmol/L (-3-3) FiO2 Bipap 90% Laboratory Tests Test 06/24/20 07:25 06/24/20 08:00 White Blood Count 9.9 x10^3/uL (4.0-11.0) Red Blood Count 4.35 x10^6/uL (3.50-5.40) Hemoglobin 12.9 g/dL (12.0-15.5) Hematocrit 38.7 % (36.0-47.0) Mean Corpuscular Volume 89 fL (79-100) Mean Corpuscular Hemoglobin 30 pg (25-35) Mean Corpuscular Hemoglobin Concent 33 g/dL (31-37) Red Cell Distribution Width 14.2 % (11.5-14.5) Platelet Count 377 x10^3/uL (140-400) Neutrophils (%) (Auto) 88 % (31-73) Lymphocytes (%) (Auto) 6 % (24-48) Monocytes (%) (Auto) 6 % (0-9) Eosinophils (%) (Auto) 0 % (0-3) Basophils (%) (Auto) 0 % (0-3) Neutrophils # (Auto) 8.8 x10^3/uL (1.8-7.7) Lymphocytes # (Auto) 0.6 x10^3/uL (1.0-4.8) Monocytes # (Auto) 0.6 x10^3/uL (0.0-1.1) Eosinophils # (Auto) 0.0 x10^3/uL (0.0-0.7) Basophils # (Auto) 0.0 x10^3/uL (0.0-0.2) Segmented Neutrophils % 87 % (35-66) Band Neutrophils % 2 % (0-9) Lymphocytes % 4 % (24-48) Monocytes % 7 % (0-10) Nucleated Red Blood Cells 1 Platelet Estimate Adequate (ADEQUATE) Sodium Level 148 mmol/L (136-145) Potassium Level 3.6 mmol/L (3.5-5.1) Chloride Level 111 mmol/L (98-107) Carbon Dioxide Level 28 mmol/L (21-32) Anion Gap 9 (6-14) Blood Urea Nitrogen 24 mg/dL (7-20) Creatinine 0.8 mg/dL (0.6-1.0) Estimated GFR (Cockcroft-Gault) 71.1 BUN/Creatinine Ratio 30 (6-20) Glucose Level 120 mg/dL (70-99) Calcium Level 8.0 mg/dL (8.5-10.1) Total Bilirubin 0.5 mg/dL (0.2-1.0) Aspartate Amino Transf (AST/SGOT) 41 U/L (15-37) Alanine Aminotransferase (ALT/SGPT) 40 U/L (14-59) Alkaline Phosphatase 67 U/L (46-116) Total Protein 5.8 g/dL (6.4-8.2) Albumin 2.4 g/dL (3.4-5.0) Albumin/Globulin Ratio 0.7 (1.0-1.7) O2 Saturation 92 % (92-99) Arterial Blood pH 7.44 (7.35-7.45) Arterial Blood pCO2 at Patient Temp 37 mmHg (35-46) Arterial Blood pO2 at Patient Temp 63 mmHg (65-108) Arterial Blood HCO3 25 mmol/L (21-28) Arterial Blood Base Excess 1 mmol/L (-3-3) FiO2 Bipap 90% Comments CXR IMPRESSION: Bilateral pneumonia, more confluent in the right upper lobe. Impression . IMPRESSION: 1. Acute hypoxic respiratory failure secondary to COVID-19 pneumonia and acute lung injury. 2. No significant tobacco history. 3. Abnormal chest x-ray consistent with COVID-19 pneumonia. 4. Mildly increased liver function tests. Plan . RECOMMENDATIONS: 1. Continue present BIPAP ,100% FiO2. 2. Monitor the course of treatment. 3. Cont. antibiotics. 4. cont. IV steroids 5. Monitor for inflammatory markers, D-Dimer 0.87 6. High dose DVT prophylaxis. 7. S/P convalescent plasma on 06/22/2020 and remdesivir. 8. Discussed with RN and RT. Critical care time 30 minutes, which includes review of the chart, labs and data. STEPHEN VALADEZ MD Jun 24, 2020 11:58
[2020-06-24] MEDS: REMDESIVIR 100mg in NORMAL SALINE 250ML X 4 DAYS IV SCH (14:11)
[2020-06-25] VITALS (24 sets, daily range): BP systolic 111–151; BP diastolic 51–77
[2020-06-25] MEDS: PIPERACILLIN/TAZOBACTAM 3.375 GM in IV NORMAL SALINE 50ML 50 ML IV SCH ×4 (00:06→17:56)
[2020-06-25 04:39] LABS: BASO % 0 % (0-3); EOS % 0 % (0-3); HEMATOCRIT 38.7 % (36.0-47.0); HEMOGLOBIN 12.7 g/dL (12.0-15.5); LYMPH # 0.5 x10^3/uL (1.0-4.8); LYMPH % 5 % (24-48); MEAN CORPUSCULAR HEMOGLOBIN 29 pg (25-35); MEAN CORPUSCULAR HGB CONC 33 g/dL (31-37); MEAN CORPUSCULAR VOLUME 89 fL (79-100); MONO # 0.4 x10^3/uL (0.0-1.1); MONO % 4 % (0-9); NEUT # 9.3 x10^3/uL (1.8-7.7); NEUT % 91 % (31-73); PLATELET COUNT 402 x10^3/uL (140-400); RED BLOOD COUNT 4.33 x10^6/uL (3.50-5.40); RED CELL DISTRIBUTION WIDTH 13.8 % (11.5-14.5); WHITE BLOOD COUNT 10.2 x10^3/uL (4.0-11.0)
[2020-06-25 05:01] LABS: ALBUMIN 2.3 g/dL (3.4-5.0); ALBUMIN/GLOBULIN RATIO 0.7 (1.0-1.7); CALCIUM 7.8 mg/dL (8.5-10.1); CREATININE 0.6 mg/dL (0.6-1.0); GFR 99.1; POTASSIUM 3.6 mmol/L (3.5-5.1); TOTAL BILIRUBIN 0.5 mg/dL (0.2-1.0); TOTAL PROTEIN 5.5 g/dL (6.4-8.2)
[2020-06-25] MEDS: methylPREDNISolone SOD SUCC PF 40 MG/ML VIAL. IV SCH ×2 (05:56→20:33)
--- NOTE | 2020-06-25 06:41 | PDOC ---
PULMONARY PROGRESS NOTES DATE: 06/25/20 TIME: 06:39 Subjective on BIPAP, 70%FIO2, sob better, has occ cough, no pain gets sob easily Vitals Vital Signs Date Time Temp Pulse Resp B/P (MAP) Pulse Ox O2 Delivery O2 Flow Rate FiO2 06/25/20 06:00 47 20 124/64 (84) 96 BiPAP/CPAP 06/25/20 04:00 97.9 97.9 Comments on bipap appears comfortable no paradoxical abd motion no audible wheezing alert RRR, no edema No rash ROS: No Nausea, No Chest Pain, No Abdominal Pain, No Increase Cough Labs Laboratory Tests Test 06/23/20 07:55 06/23/20 10:43 06/24/20 07:25 06/24/20 08:00 O2 Saturation 87 % (92-99) 92 % (92-99) Arterial Blood pH 7.41 (7.35-7.45) 7.44 (7.35-7.45) Arterial Blood pCO2 at Patient Temp 40 mmHg (35-46) 37 mmHg (35-46) Arterial Blood pO2 at Patient Temp 53 mmHg (65-108) 63 mmHg (65-108) Arterial Blood HCO3 25 mmol/L (21-28) 25 mmol/L (21-28) Arterial Blood Base Excess 0 mmol/L (-3-3) 1 mmol/L (-3-3) Oxyhemoglobin 86.9 % Methemoglobin 0.3 % (0.0-1.9) Carbon Monoxide, Quantitative 0.3 % (0.0-1.9) FiO2 100% Bipap 90% D-Dimer (Iraida) 0.87 ug/mlFEU (0.00-0.50) White Blood Count 9.9 x10^3/uL (4.0-11.0) Red Blood Count 4.35 x10^6/uL (3.50-5.40) Hemoglobin 12.9 g/dL (12.0-15.5) Hematocrit 38.7 % (36.0-47.0) Mean Corpuscular Volume 89 fL (79-100) Mean Corpuscular Hemoglobin 30 pg (25-35) Mean Corpuscular Hemoglobin Concent 33 g/dL (31-37) Red Cell Distribution Width 14.2 % (11.5-14.5) Platelet Count 377 x10^3/uL (140-400) Neutrophils (%) (Auto) 88 % (31-73) Lymphocytes (%) (Auto) 6 % (24-48) Monocytes (%) (Auto) 6 % (0-9) Eosinophils (%) (Auto) 0 % (0-3) Basophils (%) (Auto) 0 % (0-3) Neutrophils # (Auto) 8.8 x10^3/uL (1.8-7.7) Lymphocytes # (Auto) 0.6 x10^3/uL (1.0-4.8) Monocytes # (Auto) 0.6 x10^3/uL (0.0-1.1) Eosinophils # (Auto) 0.0 x10^3/uL (0.0-0.7) Basophils # (Auto) 0.0 x10^3/uL (0.0-0.2) Segmented Neutrophils % 87 % (35-66) Band Neutrophils % 2 % (0-9) Lymphocytes % 4 % (24-48) Monocytes % 7 % (0-10) Nucleated Red Blood Cells 1 Platelet Estimate Adequate (ADEQUATE) Sodium Level 148 mmol/L (136-145) Potassium Level 3.6 mmol/L (3.5-5.1) Chloride Level 111 mmol/L (98-107) Carbon Dioxide Level 28 mmol/L (21-32) Anion Gap 9 (6-14) Blood Urea Nitrogen 24 mg/dL (7-20) Creatinine 0.8 mg/dL (0.6-1.0) Estimated GFR (Cockcroft-Gault) 71.1 BUN/Creatinine Ratio 30 (6-20) Glucose Level 120 mg/dL (70-99) Calcium Level 8.0 mg/dL (8.5-10.1) Total Bilirubin 0.5 mg/dL (0.2-1.0) Aspartate Amino Transf (AST/SGOT) 41 U/L (15-37) Alanine Aminotransferase (ALT/SGPT) 40 U/L (14-59) Alkaline Phosphatase 67 U/L (46-116) Total Protein 5.8 g/dL (6.4-8.2) Albumin 2.4 g/dL (3.4-5.0) Albumin/Globulin Ratio 0.7 (1.0-1.7) Test 06/25/20 04:00 White Blood Count 10.2 x10^3/uL (4.0-11.0) Red Blood Count 4.33 x10^6/uL (3.50-5.40) Hemoglobin 12.7 g/dL (12.0-15.5) Hematocrit 38.7 % (36.0-47.0) Mean Corpuscular Volume 89 fL (79-100) Mean Corpuscular Hemoglobin 29 pg (25-35) Mean Corpuscular Hemoglobin Concent 33 g/dL (31-37) Red Cell Distribution Width 13.8 % (11.5-14.5) Platelet Count 402 x10^3/uL (140-400) Neutrophils (%) (Auto) 91 % (31-73) Lymphocytes (%) (Auto) 5 % (24-48) Monocytes (%) (Auto) 4 % (0-9) Eosinophils (%) (Auto) 0 % (0-3) Basophils (%) (Auto) 0 % (0-3) Neutrophils # (Auto) 9.3 x10^3/uL (1.8-7.7) Lymphocytes # (Auto) 0.5 x10^3/uL (1.0-4.8) Monocytes # (Auto) 0.4 x10^3/uL (0.0-1.1) Eosinophils # (Auto) 0.0 x10^3/uL (0.0-0.7) Basophils # (Auto) 0.0 x10^3/uL (0.0-0.2) Sodium Level 145 mmol/L (136-145) Potassium Level 3.6 mmol/L (3.5-5.1) Chloride Level 110 mmol/L (98-107) Carbon Dioxide Level 28 mmol/L (21-32) Anion Gap 7 (6-14) Blood Urea Nitrogen 22 mg/dL (7-20) Creatinine 0.6 mg/dL (0.6-1.0) Estimated GFR (Cockcroft-Gault) 99.1 BUN/Creatinine Ratio 37 (6-20) Glucose Level 125 mg/dL (70-99) Calcium Level 7.8 mg/dL (8.5-10.1) Total Bilirubin 0.5 mg/dL (0.2-1.0) Aspartate Amino Transf (AST/SGOT) 33 U/L (15-37) Alanine Aminotransferase (ALT/SGPT) 39 U/L (14-59) Alkaline Phosphatase 64 U/L (46-116) Total Protein 5.5 g/dL (6.4-8.2) Albumin 2.3 g/dL (3.4-5.0) Albumin/Globulin Ratio 0.7 (1.0-1.7) Laboratory Tests Test 06/24/20 07:25 06/24/20 08:00 06/25/20 04:00 White Blood Count 9.9 x10^3/uL (4.0-11.0) 10.2 x10^3/uL (4.0-11.0) Red Blood Count 4.35 x10^6/uL (3.50-5.40) 4.33 x10^6/uL (3.50-5.40) Hemoglobin 12.9 g/dL (12.0-15.5) 12.7 g/dL (12.0-15.5) Hematocrit 38.7 % (36.0-47.0) 38.7 % (36.0-47.0) Mean Corpuscular Volume 89 fL (79-100) 89 fL (79-100) Mean Corpuscular Hemoglobin 30 pg (25-35) 29 pg (25-35) Mean Corpuscular Hemoglobin Concent 33 g/dL (31-37) 33 g/dL (31-37) Red Cell Distribution Width 14.2 % (11.5-14.5) 13.8 % (11.5-14.5) Platelet Count 377 x10^3/uL (140-400) 402 x10^3/uL (140-400) Neutrophils (%) (Auto) 88 % (31-73) 91 % (31-73) Lymphocytes (%) (Auto) 6 % (24-48) 5 % (24-48) Monocytes (%) (Auto) 6 % (0-9) 4 % (0-9) Eosinophils (%) (Auto) 0 % (0-3) 0 % (0-3) Basophils (%) (Auto) 0 % (0-3) 0 % (0-3) Neutrophils # (Auto) 8.8 x10^3/uL (1.8-7.7) 9.3 x10^3/uL (1.8-7.7) Lymphocytes # (Auto) 0.6 x10^3/uL (1.0-4.8) 0.5 x10^3/uL (1.0-4.8) Monocytes # (Auto) 0.6 x10^3/uL (0.0-1.1) 0.4 x10^3/uL (0.0-1.1) Eosinophils # (Auto) 0.0 x10^3/uL (0.0-0.7) 0.0 x10^3/uL (0.0-0.7) Basophils # (Auto) 0.0 x10^3/uL (0.0-0.2) 0.0 x10^3/uL (0.0-0.2) Segmented Neutrophils % 87 % (35-66) Band Neutrophils % 2 % (0-9) Lymphocytes % 4 % (24-48) Monocytes % 7 % (0-10) Nucleated Red Blood Cells 1 Platelet Estimate Adequate (ADEQUATE) Sodium Level 148 mmol/L (136-145) 145 mmol/L (136-145) Potassium Level 3.6 mmol/L (3.5-5.1) 3.6 mmol/L (3.5-5.1) Chloride Level 111 mmol/L (98-107) 110 mmol/L (98-107) Carbon Dioxide Level 28 mmol/L (21-32) 28 mmol/L (21-32) Anion Gap 9 (6-14) 7 (6-14) Blood Urea Nitrogen 24 mg/dL (7-20) 22 mg/dL (7-20) Creatinine 0.8 mg/dL (0.6-1.0) 0.6 mg/dL (0.6-1.0) Estimated GFR (Cockcroft-Gault) 71.1 99.1 BUN/Creatinine Ratio 30 (6-20) 37 (6-20) Glucose Level 120 mg/dL (70-99) 125 mg/dL (70-99) Calcium Level 8.0 mg/dL (8.5-10.1) 7.8 mg/dL (8.5-10.1) Total Bilirubin 0.5 mg/dL (0.2-1.0) 0.5 mg/dL (0.2-1.0) Aspartate Amino Transf (AST/SGOT) 41 U/L (15-37) 33 U/L (15-37) Alanine Aminotransferase (ALT/SGPT) 40 U/L (14-59) 39 U/L (14-59) Alkaline Phosphatase 67 U/L (46-116) 64 U/L (46-116) Total Protein 5.8 g/dL (6.4-8.2) 5.5 g/dL (6.4-8.2) Albumin 2.4 g/dL (3.4-5.0) 2.3 g/dL (3.4-5.0) Albumin/Globulin Ratio 0.7 (1.0-1.7) 0.7 (1.0-1.7) O2 Saturation 92 % (92-99) Arterial Blood pH 7.44 (7.35-7.45) Arterial Blood pCO2 at Patient Temp 37 mmHg (35-46) Arterial Blood pO2 at Patient Temp 63 mmHg (65-108) Arterial Blood HCO3 25 mmol/L (21-28) Arterial Blood Base Excess 1 mmol/L (-3-3) FiO2 Bipap 90% Comments CXR, reviewed Bilateral pneumonia, more confluent in the right upper lobe. Impression . IMPRESSION: 1. Acute hypoxic respiratory failure secondary to COVID-19 pneumonia and acute lung injury. 2. No significant tobacco history. 3. Abnormal chest x-ray consistent with COVID-19 pneumonia. 4. Mildly increased liver function tests. 5. hypoxemia Plan . RECOMMENDATIONS: 1. Continue present BIPAP, setting reviewed, titrate FiO2 to keep sat 92%. vapotherm as tolerated 2. Monitor the course of treatment. 3. Cont. antibiotics. 4. change solumedrol to 40 bid 5. Monitor for inflammatory markers, D-Dimer 0.87 6. High dose DVT prophylaxis. 7. S/P convalescent plasma on 06/22/2020 and remdesivir. 8. Discussed with RN and RT. critically ill Critical care time 30 minutes, which includes review of the chart, labs and data. no overlap LUCINDA BURGOS MD Jun 25, 2020 06:41
[2020-06-25 08:36] LABS: BASE EXCESS ABG 2 mmol/L (-3-3); HCO3 ABG 25 mmol/L (21-28); PCO2 ABG 35 mmHg (35-46); PO2 ABG 69 mmHg (65-108); SAT O2 ABG 94 % (92-99)
[2020-06-25 08:40] LABS: FIO2 ABG 70
--- NOTE | 2020-06-25 08:47 | PDOC ---
Infectious Disease Note Subjective Subjective Less SOA on BiPAP FiO2 70% Denies chest discomfort or wheezing Denies fever/chills/body aches Denies N/V Loose stools ROS ROS as mentioned above Vital Sign Vital Signs Vital Signs Date Time Temp Pulse Resp B/P (MAP) Pulse Ox O2 Delivery O2 Flow Rate FiO2 06/25/20 08:00 98.0 76 34 111/76 (88) 98 BiPAP/CPAP 98.0 Physical Exam PHYSICAL EXAM GENERAL: Propped up in bed, alert, calm, on BiPAP HEENT: PERRL. Oral cavity dry NECK: Supple LUNGS: Diminished aeration, no accessory muscle use HEART: S1, S2 regular. ABDOMEN: Soft and nontender EXTREMITIES: No edema or cyanosis. SCDs bilaterally SKIN: No signs of rash. NEUROLOGIC: Alert, awake and appropriate. No focal neurologic deficit. PIV Labs Lab Laboratory Tests Test 06/25/20 04:00 White Blood Count 10.2 x10^3/uL (4.0-11.0) Red Blood Count 4.33 x10^6/uL (3.50-5.40) Hemoglobin 12.7 g/dL (12.0-15.5) Hematocrit 38.7 % (36.0-47.0) Mean Corpuscular Volume 89 fL (79-100) Mean Corpuscular Hemoglobin 29 pg (25-35) Mean Corpuscular Hemoglobin Concent 33 g/dL (31-37) Red Cell Distribution Width 13.8 % (11.5-14.5) Platelet Count 402 x10^3/uL (140-400) Neutrophils (%) (Auto) 91 % (31-73) Lymphocytes (%) (Auto) 5 % (24-48) Monocytes (%) (Auto) 4 % (0-9) Eosinophils (%) (Auto) 0 % (0-3) Basophils (%) (Auto) 0 % (0-3) Neutrophils # (Auto) 9.3 x10^3/uL (1.8-7.7) Lymphocytes # (Auto) 0.5 x10^3/uL (1.0-4.8) Monocytes # (Auto) 0.4 x10^3/uL (0.0-1.1) Eosinophils # (Auto) 0.0 x10^3/uL (0.0-0.7) Basophils # (Auto) 0.0 x10^3/uL (0.0-0.2) Sodium Level 145 mmol/L (136-145) Potassium Level 3.6 mmol/L (3.5-5.1) Chloride Level 110 mmol/L (98-107) Carbon Dioxide Level 28 mmol/L (21-32) Anion Gap 7 (6-14) Blood Urea Nitrogen 22 mg/dL (7-20) Creatinine 0.6 mg/dL (0.6-1.0) Estimated GFR (Cockcroft-Gault) 99.1 BUN/Creatinine Ratio 37 (6-20) Glucose Level 125 mg/dL (70-99) Calcium Level 7.8 mg/dL (8.5-10.1) Total Bilirubin 0.5 mg/dL (0.2-1.0) Aspartate Amino Transf (AST/SGOT) 33 U/L (15-37) Alanine Aminotransferase (ALT/SGPT) 39 U/L (14-59) Alkaline Phosphatase 64 U/L (46-116) Total Protein 5.5 g/dL (6.4-8.2) Albumin 2.3 g/dL (3.4-5.0) Albumin/Globulin Ratio 0.7 (1.0-1.7) 06/22. Chest x-ray: IMPRESSION: Bilateral pneumonia, more confluent in the right upper lobe. Objective Assessment COVID-19 positive. s/p convalescent plasma Bilateral pulmonary infiltrate. Hypoxemia. On BiPAP Obesity. Plan Plan of Care Remdesivir, steroids Convalescent plasma given Continue Zosyn (started 06/22) Maintain aspiration precautions Airborne isolation for positive COVID Critically ill Attending Co-Sign The patient was seen and interviewed as well as examined at the bedside. The chart was reviewed. The case was discussed. Agree with the plan of care. LISSETTE POOL APRN Jun 25, 2020 08:47 GLORIA OHARA MD Jun 25, 2020 12:34
[2020-06-25] MEDS: ZINC SULFATE 220 MG CAPSULE. PO SCH (09:39)
[2020-06-25] MEDS: ENOXAPARIN 40 MG/0.4 ML SYRINGE. SQ SCH ×2 (09:39→20:33)
[2020-06-25] MEDS: LACTOBACILLUS RHAMNOSUS GG 1 CAPSULE. PO SCH ×2 (09:39→20:32)
--- NOTE | 2020-06-25 10:21 | PDOC ---
[employer] PROGRESS NOTE Date of Service DOS: DATE: 06/25/20 TIME: 10:19 Chief Complaint Chief Complaint A/P: Acute hypoxic respiratory failuresecondary to SARSCo.2 pneumonia. Continue supportive therapy, steroids room to severe protocol initiated on 06 21 will continue here. Consult ID and pulmonology SARS- COV2 pneumonia -continue IV Solu-Medrol wean O2 as tolerated I discussed with pulmonology to move to a negative pressure room if her desaturations worsen and she may need BiPAP.. Will try experimental drug to severe and convalescent plasma therapies with ID and pulmonology. Hypokalemiawill replace, check magnesium level Diarrhealikely COVID-19 related. Will check for C. difficile per protocol if more than 3 bowel movements in a day Transaminitis also likely related COVID-19, will monitor Severe protein calorie malnutritionlikely related to above FEN - General diet PPX - lovenox FULL CODE Dispo - ICU for above CC time 38 minutes History of Present Illness History of Present Illness Ms. 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 On 06/16/2020 she began having symptoms of diarrhea and shortness of breath and went to the ED to have COVID-19 testing, she was notified of the results on 06/17/2020 and asked to quarantine at home for 14 days. Over the course the next 5 days she became progressively more weak had fever and chills and began having myalgias and worsening diarrhea with little bit of abdominal pain. She returned to the ED on 06/21/2020 at [facility] and was found to be hypoxic. ABG on 06/21/2020 7.472/30 5.1/94.3 with HCO3 of 26.2 on nonrebreather 10 L labs on 06 21 sodium 135, K3.2, chloride 99, CO2 25, BUN 17, creatinine 1, glucose 115, lactate 1.9, calcium 8, ferritin 1491, bilirubin 0.4, AST 103, ALT 5 8, AL K phosphatase 62 troponin negative, CRP 129.6, total protein 6.3, albumin 2.7 prealbumin 9, lipase 185, B12 995, procalcitonin 0.40, TSH 1.427, d-dimer 1.16, WBC 7.1, Hb 14.1, platelets 302 chest x-ray on 06 21 read as worsening interstitial and airspace opacities in the right upper lobe and left lung base and worsening interstitial opacities in the right lung base compatible with multifocal pneumonia EKG appears normal sinus rhythm with heart rate approximately 85 bpm with normal axis some inferior T wave changes that are nonspecific no ST segment changes. 06/23: Seen in our ICU on Vapotherm. She is still complaining of weakness and diarrhea to me, 2 BM this morning. Afebrile. Still with cough today. O2 53 on Vapotherm. Remdesivir and convalescent FFP given 06/24: O2 63 on ABG this morning after BIPAP overnight. She feels a bit improved, appetite improved. No diarrhea yet today. Still weak with myalgias. Less short of breath, on BiPAP with FiO2 70%. No chest pain or wheezing, no fevers. Still with some loose stools. LFTs normal today. WBC 10.2, Hb 12.7, platelets 4 2, NA 140 5K3.6 BUN 22, CR 0.6 ABG 7.48, 35, 69 BiPAP 70%. Vitals/I&O Vitals/I&O: Vital Signs Date Time Temp Pulse Resp B/P (MAP) Pulse Ox O2 Delivery O2 Flow Rate FiO2 06/25/20 09:00 57 26 125/66 (85) 97 BiPAP/CPAP 06/25/20 08:00 98.0 98.0 I & O 06/24/20 06/24/20 06/25/20 15:00 23:00 07:00 Intake Total 795 ml 250 ml Output Total 200 ml Balance 595 ml 250 ml Physical Exam Physical Exam: GENERAL: Propped up in bed, alert, calm, on BiPAP HEENT: PERRL. Oral cavity dry NECK: Supple LUNGS: Diminished aeration, no accessory muscle use HEART: S1, S2 regular. ABDOMEN: Soft and nontender EXTREMITIES: No edema or cyanosis. SCDs bilaterally SKIN: No signs of rash. NEUROLOGIC: Alert, awake and appropriate. No focal neurologic deficit. PIV General: Alert, Oriented X3, Cooperative, moderate distress Heart: Other (Rhonchi bilaterally) Abdomen: Normal bowel sounds, Soft, No tenderness, No hepatosplenomegaly, No masses Extremities: No clubbing, No cyanosis, No edema, Normal pulses, No tenderness/swelling Skin: No rashes, No breakdown, No significant lesion Labs Labs: Laboratory Tests Test 06/25/20 04:00 06/25/20 08:35 White Blood Count 10.2 x10^3/uL (4.0-11.0) Red Blood Count 4.33 x10^6/uL (3.50-5.40) Hemoglobin 12.7 g/dL (12.0-15.5) Hematocrit 38.7 % (36.0-47.0) Mean Corpuscular Volume 89 fL (79-100) Mean Corpuscular Hemoglobin 29 pg (25-35) Mean Corpuscular Hemoglobin Concent 33 g/dL (31-37) Red Cell Distribution Width 13.8 % (11.5-14.5) Platelet Count 402 x10^3/uL (140-400) Neutrophils (%) (Auto) 91 % (31-73) Lymphocytes (%) (Auto) 5 % (24-48) Monocytes (%) (Auto) 4 % (0-9) Eosinophils (%) (Auto) 0 % (0-3) Basophils (%) (Auto) 0 % (0-3) Neutrophils # (Auto) 9.3 x10^3/uL (1.8-7.7) Lymphocytes # (Auto) 0.5 x10^3/uL (1.0-4.8) Monocytes # (Auto) 0.4 x10^3/uL (0.0-1.1) Eosinophils # (Auto) 0.0 x10^3/uL (0.0-0.7) Basophils # (Auto) 0.0 x10^3/uL (0.0-0.2) Sodium Level 145 mmol/L (136-145) Potassium Level 3.6 mmol/L (3.5-5.1) Chloride Level 110 mmol/L (98-107) Carbon Dioxide Level 28 mmol/L (21-32) Anion Gap 7 (6-14) Blood Urea Nitrogen 22 mg/dL (7-20) Creatinine 0.6 mg/dL (0.6-1.0) Estimated GFR (Cockcroft-Gault) 99.1 BUN/Creatinine Ratio 37 (6-20) Glucose Level 125 mg/dL (70-99) Calcium Level 7.8 mg/dL (8.5-10.1) Total Bilirubin 0.5 mg/dL (0.2-1.0) Aspartate Amino Transf (AST/SGOT) 33 U/L (15-37) Alanine Aminotransferase (ALT/SGPT) 39 U/L (14-59) Alkaline Phosphatase 64 U/L (46-116) Total Protein 5.5 g/dL (6.4-8.2) Albumin 2.3 g/dL (3.4-5.0) Albumin/Globulin Ratio 0.7 (1.0-1.7) O2 Saturation 94 % (92-99) Arterial Blood pH 7.48 (7.35-7.45) Arterial Blood pCO2 at Patient Temp 35 mmHg (35-46) Arterial Blood pO2 at Patient Temp 69 mmHg (65-108) Arterial Blood HCO3 25 mmol/L (21-28) Arterial Blood Base Excess 2 mmol/L (-3-3) FiO2 70 Comment Review of Relevant I have reviewed the following items helen (where applicable) has been applied. Justicifation of Admission Dx: Justifications for Admission: Justification of Admission Dx: Yes Respiratory Failure: Severe Resp Distress FRANKLYN DOMINIQUE MD Jun 25, 2020 10:21
[2020-06-25] MEDS: REMDESIVIR 100mg in NORMAL SALINE 250ML X 4 DAYS IV SCH (14:30)
[2020-06-26] VITALS (20 sets, daily range): BP systolic 106–145; BP diastolic 49–73
[2020-06-26] MEDS: PIPERACILLIN/TAZOBACTAM 3.375 GM in IV NORMAL SALINE 50ML 50 ML IV SCH ×5 (03:21→23:38)
[2020-06-26 04:59] LABS: BASO % 0 % (0-3); EOS % 0 % (0-3); HEMOGLOBIN 12.4 g/dL (12.0-15.5); LYMPH # 0.8 x10^3/uL (1.0-4.8); LYMPH % 7 % (24-48); MEAN CORPUSCULAR HEMOGLOBIN 29 pg (25-35); MEAN CORPUSCULAR HGB CONC 33 g/dL (31-37); MEAN CORPUSCULAR VOLUME 89 fL (79-100); MONO # 0.5 x10^3/uL (0.0-1.1); MONO % 4 % (0-9); NEUT # 10.1 x10^3/uL (1.8-7.7); NEUT % 89 % (31-73); PLATELET COUNT 374 x10^3/uL (140-400); RED CELL DISTRIBUTION WIDTH 13.7 % (11.5-14.5); WHITE BLOOD COUNT 11.4 x10^3/uL (4.0-11.0)
[2020-06-26 06:12] LABS: ALBUMIN/GLOBULIN RATIO 0.6 (1.0-1.7); CALCIUM 7.8 mg/dL (8.5-10.1); CREATININE 0.6 mg/dL (0.6-1.0); GFR 99.1; POTASSIUM 3.3 mmol/L (3.5-5.1); TOTAL BILIRUBIN 0.7 mg/dL (0.2-1.0); TOTAL PROTEIN 5.2 g/dL (6.4-8.2)
--- NOTE | 2020-06-26 06:35 | PDOC ---
PULMONARY PROGRESS NOTES DATE: 06/26/20 TIME: 06:34 Subjective on BIPAP, 50%FIO2, sob better, has occ cough, no pain, has fever gets sob easily Vitals Vital Signs Date Time Temp Pulse Resp B/P (MAP) Pulse Ox O2 Delivery O2 Flow Rate FiO2 06/26/20 06:00 76 21 96 BiPAP/CPAP 06/26/20 04:00 99.5 99.5 Comments on bipap appears comfortable no paradoxical abd motion no audible wheezing alert RRR, no edema No rash ROS: No Nausea, No Chest Pain, No Abdominal Pain, No Increase Cough Labs Laboratory Tests Test 06/24/20 07:25 06/24/20 08:00 06/25/20 04:00 06/25/20 08:35 White Blood Count 9.9 x10^3/uL (4.0-11.0) 10.2 x10^3/uL (4.0-11.0) Red Blood Count 4.35 x10^6/uL (3.50-5.40) 4.33 x10^6/uL (3.50-5.40) Hemoglobin 12.9 g/dL (12.0-15.5) 12.7 g/dL (12.0-15.5) Hematocrit 38.7 % (36.0-47.0) 38.7 % (36.0-47.0) Mean Corpuscular Volume 89 fL (79-100) 89 fL (79-100) Mean Corpuscular Hemoglobin 30 pg (25-35) 29 pg (25-35) Mean Corpuscular Hemoglobin Concent 33 g/dL (31-37) 33 g/dL (31-37) Red Cell Distribution Width 14.2 % (11.5-14.5) 13.8 % (11.5-14.5) Platelet Count 377 x10^3/uL (140-400) 402 x10^3/uL (140-400) Neutrophils (%) (Auto) 88 % (31-73) 91 % (31-73) Lymphocytes (%) (Auto) 6 % (24-48) 5 % (24-48) Monocytes (%) (Auto) 6 % (0-9) 4 % (0-9) Eosinophils (%) (Auto) 0 % (0-3) 0 % (0-3) Basophils (%) (Auto) 0 % (0-3) 0 % (0-3) Neutrophils # (Auto) 8.8 x10^3/uL (1.8-7.7) 9.3 x10^3/uL (1.8-7.7) Lymphocytes # (Auto) 0.6 x10^3/uL (1.0-4.8) 0.5 x10^3/uL (1.0-4.8) Monocytes # (Auto) 0.6 x10^3/uL (0.0-1.1) 0.4 x10^3/uL (0.0-1.1) Eosinophils # (Auto) 0.0 x10^3/uL (0.0-0.7) 0.0 x10^3/uL (0.0-0.7) Basophils # (Auto) 0.0 x10^3/uL (0.0-0.2) 0.0 x10^3/uL (0.0-0.2) Segmented Neutrophils % 87 % (35-66) Band Neutrophils % 2 % (0-9) Lymphocytes % 4 % (24-48) Monocytes % 7 % (0-10) Nucleated Red Blood Cells 1 Platelet Estimate Adequate (ADEQUATE) Sodium Level 148 mmol/L (136-145) 145 mmol/L (136-145) Potassium Level 3.6 mmol/L (3.5-5.1) 3.6 mmol/L (3.5-5.1) Chloride Level 111 mmol/L (98-107) 110 mmol/L (98-107) Carbon Dioxide Level 28 mmol/L (21-32) 28 mmol/L (21-32) Anion Gap 9 (6-14) 7 (6-14) Blood Urea Nitrogen 24 mg/dL (7-20) 22 mg/dL (7-20) Creatinine 0.8 mg/dL (0.6-1.0) 0.6 mg/dL (0.6-1.0) Estimated GFR (Cockcroft-Gault) 71.1 99.1 BUN/Creatinine Ratio 30 (6-20) 37 (6-20) Glucose Level 120 mg/dL (70-99) 125 mg/dL (70-99) Calcium Level 8.0 mg/dL (8.5-10.1) 7.8 mg/dL (8.5-10.1) Total Bilirubin 0.5 mg/dL (0.2-1.0) 0.5 mg/dL (0.2-1.0) Aspartate Amino Transf (AST/SGOT) 41 U/L (15-37) 33 U/L (15-37) Alanine Aminotransferase (ALT/SGPT) 40 U/L (14-59) 39 U/L (14-59) Alkaline Phosphatase 67 U/L (46-116) 64 U/L (46-116) Total Protein 5.8 g/dL (6.4-8.2) 5.5 g/dL (6.4-8.2) Albumin 2.4 g/dL (3.4-5.0) 2.3 g/dL (3.4-5.0) Albumin/Globulin Ratio 0.7 (1.0-1.7) 0.7 (1.0-1.7) O2 Saturation 92 % (92-99) 94 % (92-99) Arterial Blood pH 7.44 (7.35-7.45) 7.48 (7.35-7.45) Arterial Blood pCO2 at Patient Temp 37 mmHg (35-46) 35 mmHg (35-46) Arterial Blood pO2 at Patient Temp 63 mmHg (65-108) 69 mmHg (65-108) Arterial Blood HCO3 25 mmol/L (21-28) 25 mmol/L (21-28) Arterial Blood Base Excess 1 mmol/L (-3-3) 2 mmol/L (-3-3) FiO2 Bipap 90% 70 Test 06/26/20 04:30 White Blood Count 11.4 x10^3/uL (4.0-11.0) Red Blood Count 4.30 x10^6/uL (3.50-5.40) Hemoglobin 12.4 g/dL (12.0-15.5) Hematocrit 38.0 % (36.0-47.0) Mean Corpuscular Volume 89 fL (79-100) Mean Corpuscular Hemoglobin 29 pg (25-35) Mean Corpuscular Hemoglobin Concent 33 g/dL (31-37) Red Cell Distribution Width 13.7 % (11.5-14.5) Platelet Count 374 x10^3/uL (140-400) Neutrophils (%) (Auto) 89 % (31-73) Lymphocytes (%) (Auto) 7 % (24-48) Monocytes (%) (Auto) 4 % (0-9) Eosinophils (%) (Auto) 0 % (0-3) Basophils (%) (Auto) 0 % (0-3) Neutrophils # (Auto) 10.1 x10^3/uL (1.8-7.7) Lymphocytes # (Auto) 0.8 x10^3/uL (1.0-4.8) Monocytes # (Auto) 0.5 x10^3/uL (0.0-1.1) Eosinophils # (Auto) 0.0 x10^3/uL (0.0-0.7) Basophils # (Auto) 0.0 x10^3/uL (0.0-0.2) Sodium Level 145 mmol/L (136-145) Potassium Level 3.3 mmol/L (3.5-5.1) Chloride Level 109 mmol/L (98-107) Carbon Dioxide Level 28 mmol/L (21-32) Anion Gap 8 (6-14) Blood Urea Nitrogen 19 mg/dL (7-20) Creatinine 0.6 mg/dL (0.6-1.0) Estimated GFR (Cockcroft-Gault) 99.1 BUN/Creatinine Ratio 32 (6-20) Glucose Level 78 mg/dL (70-99) Calcium Level 7.8 mg/dL (8.5-10.1) Total Bilirubin 0.7 mg/dL (0.2-1.0) Aspartate Amino Transf (AST/SGOT) 31 U/L (15-37) Alanine Aminotransferase (ALT/SGPT) 34 U/L (14-59) Alkaline Phosphatase 60 U/L (46-116) Total Protein 5.2 g/dL (6.4-8.2) Albumin 2.0 g/dL (3.4-5.0) Albumin/Globulin Ratio 0.6 (1.0-1.7) Laboratory Tests Test 06/25/20 08:35 06/26/20 04:30 O2 Saturation 94 % (92-99) Arterial Blood pH 7.48 (7.35-7.45) Arterial Blood pCO2 at Patient Temp 35 mmHg (35-46) Arterial Blood pO2 at Patient Temp 69 mmHg (65-108) Arterial Blood HCO3 25 mmol/L (21-28) Arterial Blood Base Excess 2 mmol/L (-3-3) FiO2 70 White Blood Count 11.4 x10^3/uL (4.0-11.0) Red Blood Count 4.30 x10^6/uL (3.50-5.40) Hemoglobin 12.4 g/dL (12.0-15.5) Hematocrit 38.0 % (36.0-47.0) Mean Corpuscular Volume 89 fL (79-100) Mean Corpuscular Hemoglobin 29 pg (25-35) Mean Corpuscular Hemoglobin Concent 33 g/dL (31-37) Red Cell Distribution Width 13.7 % (11.5-14.5) Platelet Count 374 x10^3/uL (140-400) Neutrophils (%) (Auto) 89 % (31-73) Lymphocytes (%) (Auto) 7 % (24-48) Monocytes (%) (Auto) 4 % (0-9) Eosinophils (%) (Auto) 0 % (0-3) Basophils (%) (Auto) 0 % (0-3) Neutrophils # (Auto) 10.1 x10^3/uL (1.8-7.7) Lymphocytes # (Auto) 0.8 x10^3/uL (1.0-4.8) Monocytes # (Auto) 0.5 x10^3/uL (0.0-1.1) Eosinophils # (Auto) 0.0 x10^3/uL (0.0-0.7) Basophils # (Auto) 0.0 x10^3/uL (0.0-0.2) Sodium Level 145 mmol/L (136-145) Potassium Level 3.3 mmol/L (3.5-5.1) Chloride Level 109 mmol/L (98-107) Carbon Dioxide Level 28 mmol/L (21-32) Anion Gap 8 (6-14) Blood Urea Nitrogen 19 mg/dL (7-20) Creatinine 0.6 mg/dL (0.6-1.0) Estimated GFR (Cockcroft-Gault) 99.1 BUN/Creatinine Ratio 32 (6-20) Glucose Level 78 mg/dL (70-99) Calcium Level 7.8 mg/dL (8.5-10.1) Total Bilirubin 0.7 mg/dL (0.2-1.0) Aspartate Amino Transf (AST/SGOT) 31 U/L (15-37) Alanine Aminotransferase (ALT/SGPT) 34 U/L (14-59) Alkaline Phosphatase 60 U/L (46-116) Total Protein 5.2 g/dL (6.4-8.2) Albumin 2.0 g/dL (3.4-5.0) Albumin/Globulin Ratio 0.6 (1.0-1.7) Comments CXR, reviewed Bilateral pneumonia, more confluent in the right upper lobe. Impression . IMPRESSION: 1. Acute hypoxic respiratory failure secondary to COVID-19 pneumonia and acute lung injury. 2. No significant tobacco history. 3. Abnormal chest x-ray consistent with COVID-19 pneumonia. 4. Mildly increased liver function tests. 5. hypoxemia 6. fever Plan . RECOMMENDATIONS: 1. Continue present BIPAP, setting reviewed, titrate FiO2 to keep sat 92%. vapotherm as tolerated 2. Monitor the course of treatment. 3. Cont. antibiotics. Continue Zosyn (started 06/22), add Zyvox 4. change solumedrol to 40 bid 5. Monitor for inflammatory markers, D-Dimer 0.87 6. High dose DVT prophylaxis. 7. S/P convalescent plasma on 06/22/2020 and remdesivir. 8. Discussed with RN and RT. LUCINDA BURGOS MD Jun 26, 2020 06:34
[2020-06-26] MEDS: LACTOBACILLUS RHAMNOSUS GG 1 CAPSULE. PO SCH ×2 (07:59→20:56)
[2020-06-26] MEDS: ZINC SULFATE 220 MG CAPSULE. PO SCH (07:59)
[2020-06-26] MEDS: ENOXAPARIN 40 MG/0.4 ML SYRINGE. SQ SCH ×2 (07:59→20:56)
[2020-06-26] MEDS: methylPREDNISolone SOD SUCC PF 40 MG/ML VIAL. IV SCH ×2 (08:00→20:56)
--- NOTE | 2020-06-26 09:00 | PDOC ---
Infectious Disease Note Subjective Subjective Fever 100.2 (axillary), dry cough and mild aches Remains on BiPAP, FiO2 down to 40% Denies chest discomfort or wheezing Denies chills Denies N/V/diarrhea ROS ROS as mentioned above Vital Sign Vital Signs Vital Signs Date Time Temp Pulse Resp B/P (MAP) Pulse Ox O2 Delivery O2 Flow Rate FiO2 06/26/20 08:00 100.2 72 25 121/49 (73) 95 BiPAP/CPAP 100.2 Physical Exam PHYSICAL EXAM GENERAL: Propped up in bed, alert, calm, on BiPAP HEENT: PERRL. Oral cavity dry NECK: Supple LUNGS: Diminished aeration, no accessory muscle use HEART: S1, S2 regular. ABDOMEN: Soft and nontender EXTREMITIES: No edema or cyanosis. SCDs bilaterally SKIN: No signs of rash. NEUROLOGIC: Alert and oriented, PIV Labs Lab Laboratory Tests Test 06/26/20 04:30 White Blood Count 11.4 x10^3/uL (4.0-11.0) Red Blood Count 4.30 x10^6/uL (3.50-5.40) Hemoglobin 12.4 g/dL (12.0-15.5) Hematocrit 38.0 % (36.0-47.0) Mean Corpuscular Volume 89 fL (79-100) Mean Corpuscular Hemoglobin 29 pg (25-35) Mean Corpuscular Hemoglobin Concent 33 g/dL (31-37) Red Cell Distribution Width 13.7 % (11.5-14.5) Platelet Count 374 x10^3/uL (140-400) Neutrophils (%) (Auto) 89 % (31-73) Lymphocytes (%) (Auto) 7 % (24-48) Monocytes (%) (Auto) 4 % (0-9) Eosinophils (%) (Auto) 0 % (0-3) Basophils (%) (Auto) 0 % (0-3) Neutrophils # (Auto) 10.1 x10^3/uL (1.8-7.7) Lymphocytes # (Auto) 0.8 x10^3/uL (1.0-4.8) Monocytes # (Auto) 0.5 x10^3/uL (0.0-1.1) Eosinophils # (Auto) 0.0 x10^3/uL (0.0-0.7) Basophils # (Auto) 0.0 x10^3/uL (0.0-0.2) Sodium Level 145 mmol/L (136-145) Potassium Level 3.3 mmol/L (3.5-5.1) Chloride Level 109 mmol/L (98-107) Carbon Dioxide Level 28 mmol/L (21-32) Anion Gap 8 (6-14) Blood Urea Nitrogen 19 mg/dL (7-20) Creatinine 0.6 mg/dL (0.6-1.0) Estimated GFR (Cockcroft-Gault) 99.1 BUN/Creatinine Ratio 32 (6-20) Glucose Level 78 mg/dL (70-99) Calcium Level 7.8 mg/dL (8.5-10.1) Total Bilirubin 0.7 mg/dL (0.2-1.0) Aspartate Amino Transf (AST/SGOT) 31 U/L (15-37) Alanine Aminotransferase (ALT/SGPT) 34 U/L (14-59) Alkaline Phosphatase 60 U/L (46-116) Total Protein 5.2 g/dL (6.4-8.2) Albumin 2.0 g/dL (3.4-5.0) Albumin/Globulin Ratio 0.6 (1.0-1.7) Objective Assessment New fever Leukocytosis, mild - on steroids COVID-19 positive. s/p convalescent plasma and Remdesivir. Bilateral pulmonary infiltrate. Hypoxemia. On BiPAP Obesity. Plan Plan of Care Monitor temp BC and UA C&S Repeat CBC in am Continue Zosyn (started 06/22), add Zyvox Steroids Convalescent plasma and Remdesivir given Probiotics Maintain aspiration precautions Airborne isolation for positive COVID Critically ill Attending Co-Sign The patient was seen and interviewed as well as examined at the bedside. The chart was reviewed. The case was discussed. Agree with the plan of care. LISSETTE POOL APRN Jun 26, 2020 09:00 GLORIA OHARA MD Jun 26, 2020 10:35
--- NOTE | 2020-06-26 09:22 | PDOC ---
[employer] PROGRESS NOTE Date of Service DOS: DATE: 06/26/20 TIME: 09:21 Chief Complaint Chief Complaint A/P: Acute hypoxic respiratory failuresecondary to SARSCo.2 pneumonia. Continue supportive therapy, steroids room to severe protocol initiated on 06 21 will continue here. Consult ID and pulmonology SARS- COV2 pneumonia -continue IV Solu-Medrol wean O2 as tolerated I discussed with pulmonology to move to a negative pressure room if her desaturations worsen and she may need BiPAP.. Will try experimental drug to severe and convalescent plasma therapies with ID and pulmonology. Hypokalemiawill replace, check magnesium level Diarrhealikely COVID-19 related. Will check for C. 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 On 06/16/2020 she began having symptoms of diarrhea and shortness of breath and went to the ED to have COVID-19 testing, she was notified of the results on 06/17/2020 and asked to quarantine at home for 14 days. Over the course the next 5 days she became progressively more weak had fever and chills and began having myalgias and worsening diarrhea with little bit of abdominal pain. She returned to the ED on 06/21/2020 at [facility] and was found to be hypoxic. ABG on 06/21/2020 7.472/30 5.1/94.3 with HCO3 of 26.2 on nonrebreather 10 L labs on 06 21 sodium 135, K3.2, chloride 99, CO2 25, BUN 17, creatinine 1, glucose 115, lactate 1.9, calcium 8, ferritin 1491, bilirubin 0.4, AST 103, ALT 5 8, AL K phosphatase 62 troponin negative, CRP 129.6, total protein 6.3, albumin 2.7 prealbumin 9, lipase 185, B12 995, procalcitonin 0.40, TSH 1.427, d-dimer 1.16, WBC 7.1, Hb 14.1, platelets 302 chest x-ray on 06 21 read as worsening interstitial and airspace opacities in the right upper lobe and left lung base and worsening interstitial opacities in the right lung base compatible with multifocal pneumonia EKG appears normal sinus rhythm with heart rate approximately 85 bpm with normal axis some inferior T wave changes that are nonspecific no ST segment changes. 06/23: Seen in our ICU on Vapotherm. She is still complaining of weakness and diarrhea to me, 2 BM this morning. Afebrile. Still with cough today. O2 53 on Vapotherm. Remdesivir and convalescent FFP given 06/24: O2 63 on ABG this morning after BIPAP overnight. She feels a bit improved, appetite improved. No diarrhea yet today. Still weak with myalgias. 06/25:Less short of breath, on BiPAP with FiO2 70%. No chest pain or wheezing, no fevers. Still with some loose stools. LFTs normal today. WBC 10.2, Hb 12.7, platelets 4 2, NA 140 5K3.6 BUN 22, CR 0.6 ABG 7.48, 35, 69 BiPAP 70%. Febrile 1 1.2 F. Seen on BiPAP 01/05 with 50% FiO2. She is very comfortable with this. Has not had a bowel movement a day and a half. Asking a 70 bedpan right now though. Appetite is decreased. Plan: Already on Zosyn, have discussed with ID adding Zyvox would be appropriate. Vitals/I&O Vitals/I&O: Vital Signs Date Time Temp Pulse Resp B/P (MAP) Pulse Ox O2 Delivery O2 Flow Rate FiO2 06/26/20 09:00 72 25 132/61 (84) 96 BiPAP/CPAP 06/26/20 08:00 100.2 100.2 I & O 06/25/20 06/25/20 06/26/20 15:00 23:00 07:00 Intake Total 450 ml 100 ml Output Total 175 ml 300 ml Balance 275 ml -200 ml Physical Exam Physical Exam: GENERAL: Propped up in bed, alert, calm, on BiPAP HEENT: PERRL. Oral cavity dry NECK: Supple LUNGS: Diminished aeration, no accessory muscle use HEART: S1, S2 regular. ABDOMEN: Soft and nontender EXTREMITIES: No edema or cyanosis. SCDs bilaterally SKIN: No signs of rash. NEUROLOGIC: Alert and oriented, PIV General: Alert, Oriented X3, Cooperative, moderate distress Heart: Other (Rhonchi bilaterally) Abdomen: Normal bowel sounds, Soft, No tenderness, No hepatosplenomegaly, No masses Extremities: No clubbing, No cyanosis, No edema, Normal pulses, No tenderness/swelling Skin: No rashes, No breakdown, No significant lesion Labs Labs: Laboratory Tests Test 06/26/20 04:30 White Blood Count 11.4 x10^3/uL (4.0-11.0) Red Blood Count 4.30 x10^6/uL (3.50-5.40) Hemoglobin 12.4 g/dL (12.0-15.5) Hematocrit 38.0 % (36.0-47.0) Mean Corpuscular Volume 89 fL (79-100) Mean Corpuscular Hemoglobin 29 pg (25-35) Mean Corpuscular Hemoglobin Concent 33 g/dL (31-37) Red Cell Distribution Width 13.7 % (11.5-14.5) Platelet Count 374 x10^3/uL (140-400) Neutrophils (%) (Auto) 89 % (31-73) Lymphocytes (%) (Auto) 7 % (24-48) Monocytes (%) (Auto) 4 % (0-9) Eosinophils (%) (Auto) 0 % (0-3) Basophils (%) (Auto) 0 % (0-3) Neutrophils # (Auto) 10.1 x10^3/uL (1.8-7.7) Lymphocytes # (Auto) 0.8 x10^3/uL (1.0-4.8) Monocytes # (Auto) 0.5 x10^3/uL (0.0-1.1) Eosinophils # (Auto) 0.0 x10^3/uL (0.0-0.7) Basophils # (Auto) 0.0 x10^3/uL (0.0-0.2) Sodium Level 145 mmol/L (136-145) Potassium Level 3.3 mmol/L (3.5-5.1) Chloride Level 109 mmol/L (98-107) Carbon Dioxide Level 28 mmol/L (21-32) Anion Gap 8 (6-14) Blood Urea Nitrogen 19 mg/dL (7-20) Creatinine 0.6 mg/dL (0.6-1.0) Estimated GFR (Cockcroft-Gault) 99.1 BUN/Creatinine Ratio 32 (6-20) Glucose Level 78 mg/dL (70-99) Calcium Level 7.8 mg/dL (8.5-10.1) Total Bilirubin 0.7 mg/dL (0.2-1.0) Aspartate Amino Transf (AST/SGOT) 31 U/L (15-37) Alanine Aminotransferase (ALT/SGPT) 34 U/L (14-59) Alkaline Phosphatase 60 U/L (46-116) Total Protein 5.2 g/dL (6.4-8.2) Albumin 2.0 g/dL (3.4-5.0) Albumin/Globulin Ratio 0.6 (1.0-1.7) Comment Review of Relevant I have reviewed the following items helen (where applicable) has been applied. Medications: Current Medications Medications (Trade) Dose Ordered Sig/Karin Route PRN Reason Start Time Stop Time Status Last Admin Dose Admin Methylprednisolone Sodium Succinate (SOLU-Medrol 40MG VIAL) 40 mg Q12HR IV 06/25/20 21:00 06/26/20 08:00 Justicifation of Admission Dx: Justifications for Admission: Justification of Admission Dx: Yes Respiratory Failure: Severe Resp Distress FRANKLYN DOMINIQUE MD Jun 26, 2020 09:22
[2020-06-26] MEDS: POTASSIUM CHLORIDE 10MEQ 100 ML IV SCH ×2 (09:42→10:54)
[2020-06-26] MEDS: LINEZOLID 600 MG TABLET PO SCH ×2 (11:11→20:56)
[2020-06-26] MEDS: STERILE WATER for RESP 1,000 ML BAG. INH PRN (13:07)
[2020-06-26 14:59] LABS: BILIRUBIN,URINE NEGATIVE (NEG); CLARITY,URINE CLEAR; COLOR,URINE YELLOW; NITRITE,URINE NEGATIVE (NEG); PH,URINE 5.5 (<5.0-8.0); PROTEIN,URINE 30 mg/dL (NEG-TRACE); UROBILINOGEN,URINE 0.2 mg/dL (0.2 mg/dL)
[2020-06-26 15:05] LABS: BACTERIA,URINE FEW /HPF (0-FEW); RBC,URINE 0 /HPF (0-2); SQUAMOUS EPITHELIAL CELL,UR MOD /LPF; WBC,URINE OCC /HPF (0-4); YEAST,URINE PRESENT /HPF
[2020-06-27] VITALS (24 sets, daily range): BP systolic 99–150; BP diastolic 46–80
[2020-06-27 04:55] LABS: BASO % 0 % (0-3); EOS % 0 % (0-3); HEMATOCRIT 37.6 % (36.0-47.0); HEMOGLOBIN 12.4 g/dL (12.0-15.5); LYMPH # 0.5 x10^3/uL (1.0-4.8); LYMPH % 5 % (24-48); MEAN CORPUSCULAR HEMOGLOBIN 29 pg (25-35); MEAN CORPUSCULAR HGB CONC 33 g/dL (31-37); MEAN CORPUSCULAR VOLUME 89 fL (79-100); MONO # 0.4 x10^3/uL (0.0-1.1); MONO % 4 % (0-9); NEUT # 9.4 x10^3/uL (1.8-7.7); NEUT % 91 % (31-73); PLATELET COUNT 321 x10^3/uL (140-400); RED BLOOD COUNT 4.24 x10^6/uL (3.50-5.40); RED CELL DISTRIBUTION WIDTH 13.6 % (11.5-14.5); WHITE BLOOD COUNT 10.3 x10^3/uL (4.0-11.0)
[2020-06-27] MEDS: PIPERACILLIN/TAZOBACTAM 3.375 GM in IV NORMAL SALINE 50ML 50 ML IV SCH ×3 (05:47→18:21)
[2020-06-27 07:32] LABS: BASE EXCESS ABG 3 mmol/L (-3-3); HCO3 ABG 27 mmol/L (21-28); PCO2 ABG 36 mmHg (35-46); PO2 ABG 52 mmHg (65-108); SAT O2 ABG 88 % (92-99)
[2020-06-27 07:34] LABS: FIO2 ABG 50
[2020-06-27 07:54] LABS: ALBUMIN/GLOBULIN RATIO 0.7 (1.0-1.7); CALCIUM 7.7 mg/dL (8.5-10.1); CREATININE 0.6 mg/dL (0.6-1.0); GFR 99.1; POTASSIUM 3.9 mmol/L (3.5-5.1); TOTAL BILIRUBIN 0.6 mg/dL (0.2-1.0); TOTAL PROTEIN 4.9 g/dL (6.4-8.2)
[2020-06-27] MEDS: ENOXAPARIN 40 MG/0.4 ML SYRINGE. SQ SCH ×2 (08:20→20:38)
[2020-06-27] MEDS: ZINC SULFATE 220 MG CAPSULE. PO SCH (08:20)
[2020-06-27] MEDS: LACTOBACILLUS RHAMNOSUS GG 1 CAPSULE. PO SCH ×2 (08:20→20:39)
[2020-06-27] MEDS: methylPREDNISolone SOD SUCC PF 40 MG/ML VIAL. IV SCH ×2 (08:22→20:39)
--- NOTE | 2020-06-27 08:39 | PDOC ---
Infectious Disease Note Subjective: Subjective Pt feels better t max 100.2 Remains on BiPAP some cough , Denies chest discomfort or wheezing Denies chills Denies N/V/diarrhea/abdo pain Vital Signs: Vital Signs Vital Signs Date Time Temp Pulse Resp B/P (MAP) Pulse Ox O2 Delivery O2 Flow Rate FiO2 06/27/20 07:18 93 BiPAP/CPAP 06/27/20 07:13 61 25 134/66 (88) 06/27/20 04:00 97.9 97.9 06/26/20 17:00 40.0 Physical Exam: PHYSICAL EXAM GENERAL: Propped up in bed, alert, calm, on BiPAP HEENT: PERRL. Oral cavity dry NECK: Supple LUNGS: Diminished aeration, no accessory muscle use HEART: S1, S2 regular. ABDOMEN: Soft and nontender EXTREMITIES: No edema or cyanosis. SCDs bilaterally SKIN: No signs of rash. NEUROLOGIC: Alert and oriented, PIV Medications: Inpatient Meds: Current Medications Medications (Trade) Dose Ordered Sig/Karin Start Time Stop Time Status Last Admin Dose Admin Acetaminophen (Tylenol) 650 mg PRN Q4HRS PRN 06/22/20 10:30 06/26/20 07:59 650 MG Enoxaparin Sodium (Lovenox 40mg Syringe) 40 mg Q12HR 06/22/20 10:30 06/27/20 08:20 40 MG Guaifenesin (Robitussin Dm) 10 ml PRN Q6HRS PRN 06/22/20 10:45 Lactobacillus Rhamnosus (Culturelle) 1 cap BID 06/23/20 21:00 06/27/20 08:20 1 CAP Linezolid (Zyvox) 600 mg BID 06/26/20 10:00 06/26/20 20:56 600 MG Methylprednisolone Sodium Succinate (SOLU-Medrol 40MG VIAL) 40 mg Q12HR 06/25/20 21:00 06/27/20 08:22 40 MG Non-Formulary Medication 1 ea/ Sodium Chloride 230 ml @ 460 mls/hr Q24H 06/22/20 13:00 06/25/20 13:29 DC 06/25/20 14:30 460 MLS/HR Ondansetron HCl (Zofran) 4 mg PRN Q4HRS PRN 06/22/20 10:30 Piperacillin Sod/ Tazobactam Sod (Zosyn Per Pharmacy) 1 each PRN DAILY PRN 06/22/20 11:00 Piperacillin Sod/ Tazobactam Sod 3.375 gm/Sodium Chloride 50 ml @ 100 mls/hr Q6HRS 06/22/20 12:00 06/27/20 05:47 100 MLS/HR Potassium Chloride/Water 100 ml @ 100 mls/hr Q1H 06/26/20 10:00 06/26/20 11:59 DC 06/26/20 10:54 100 MLS/HR Sterile Water (WATER for RESP) 1,000 ml CONT PRN 06/22/20 16:15 06/26/20 13:07 1,000 ML Zinc Sulfate (Orazinc) 220 mg DAILY 06/22/20 11:00 06/27/20 08:20 220 MG Zolpidem Tartrate (Ambien) 5 mg PRN QHS PRN 06/22/20 10:30 Labs: Lab Laboratory Tests Test 06/26/20 14:15 06/27/20 04:05 06/27/20 07:30 Urine Collection Type Unknown Urine Color Yellow Urine Clarity Clear Urine pH 5.5 (<5.0-8.0) Urine Specific [place] >=1.030 (1.000-1.030) Urine Protein 30 mg/dL (NEG-TRACE) Urine Glucose (UA) 250 mg/dL (NEG) Urine Ketones (Stick) Trace mg/dL (NEG) Urine Blood Trace (NEG) Urine Nitrite Negative (NEG) Urine Bilirubin Negative (NEG) Urine Urobilinogen Dipstick 0.2 mg/dL (0.2 mg/dL) Urine Leukocyte Esterase Small (NEG) Urine RBC 0 /HPF (0-2) Urine WBC Occ /HPF (0-4) Urine Squamous Epithelial Cells Mod /LPF Urine Bacteria Few /HPF (0-FEW) Urine Yeast Present /HPF White Blood Count 10.3 x10^3/uL (4.0-11.0) Red Blood Count 4.24 x10^6/uL (3.50-5.40) Hemoglobin 12.4 g/dL (12.0-15.5) Hematocrit 37.6 % (36.0-47.0) Mean Corpuscular Volume 89 fL (79-100) Mean Corpuscular Hemoglobin 29 pg (25-35) Mean Corpuscular Hemoglobin Concent 33 g/dL (31-37) Red Cell Distribution Width 13.6 % (11.5-14.5) Platelet Count 321 x10^3/uL (140-400) Neutrophils (%) (Auto) 91 % (31-73) Lymphocytes (%) (Auto) 5 % (24-48) Monocytes (%) (Auto) 4 % (0-9) Eosinophils (%) (Auto) 0 % (0-3) Basophils (%) (Auto) 0 % (0-3) Neutrophils # (Auto) 9.4 x10^3/uL (1.8-7.7) Lymphocytes # (Auto) 0.5 x10^3/uL (1.0-4.8) Monocytes # (Auto) 0.4 x10^3/uL (0.0-1.1) Eosinophils # (Auto) 0.0 x10^3/uL (0.0-0.7) Basophils # (Auto) 0.0 x10^3/uL (0.0-0.2) Sodium Level 142 mmol/L (136-145) Potassium Level 3.9 mmol/L (3.5-5.1) Chloride Level 107 mmol/L (98-107) Carbon Dioxide Level 31 mmol/L (21-32) Anion Gap 4 (6-14) Blood Urea Nitrogen 21 mg/dL (7-20) Creatinine 0.6 mg/dL (0.6-1.0) Estimated GFR (Cockcroft-Gault) 99.1 BUN/Creatinine Ratio 35 (6-20) Glucose Level 123 mg/dL (70-99) Calcium Level 7.7 mg/dL (8.5-10.1) Total Bilirubin 0.6 mg/dL (0.2-1.0) Aspartate Amino Transf (AST/SGOT) 26 U/L (15-37) Alanine Aminotransferase (ALT/SGPT) 31 U/L (14-59) Alkaline Phosphatase 59 U/L (46-116) Total Protein 4.9 g/dL (6.4-8.2) Albumin 2.0 g/dL (3.4-5.0) Albumin/Globulin Ratio 0.7 (1.0-1.7) O2 Saturation 88 % (92-99) Arterial Blood pH 7.49 (7.35-7.45) Arterial Blood pCO2 at Patient Temp 36 mmHg (35-46) Arterial Blood pO2 at Patient Temp 52 mmHg (65-108) Arterial Blood HCO3 27 mmol/L (21-28) Arterial Blood Base Excess 3 mmol/L (-3-3) FiO2 50 Objective: Assessment: Fever Leukocytosis, mild - on steroids COVID-19 positive. s/p convalescent plasma and Remdesivir. Bilateral pulmonary infiltrate. Hypoxemia. On BiPAP Obesity. Plan: Plan of Care Continue Zosyn (started 06/22), Zyvox (06/26) Steroids Convalescent plasma and Remdesivir given Probiotics Maintain aspiration precautions Airborne isolation for positive COVID F/U temp/labs f/u cults Critically ill GOLD OHARA MD Jun 27, 2020 08:39
--- NOTE | 2020-06-27 09:51 | NUR ---
SS following up with discharge planning. SS reviewed pt chart and discussed with pt RN. Pt is currently on BIPAP HS and Vapotherm during the day. Pt on IV Zosyn. COVID19 positive. SS will continue to follow for discharge planning.
--- NOTE | 2020-06-27 10:20 | PDOC ---
PULMONARY PROGRESS NOTES DATE: 06/27/20 TIME: 10:18 Subjective on vapotherm, sob better, has occ cough, no pain, gets sob easily Vitals Vital Signs Date Time Temp Pulse Resp B/P (MAP) Pulse Ox O2 Delivery O2 Flow Rate FiO2 06/27/20 10:01 81 24 117/46 (69) 95 vapotherm 06/27/20 08:00 98.0 98.0 06/26/20 17:00 40.0 Comments on vapotherm appears comfortable no paradoxical abd motion no audible wheezing alert RRR, no edema No rash ROS: No Nausea, No Chest Pain, No Abdominal Pain, No Increase Cough Labs Laboratory Tests Test 06/26/20 04:30 06/26/20 14:15 06/27/20 04:05 06/27/20 07:30 White Blood Count 11.4 x10^3/uL (4.0-11.0) 10.3 x10^3/uL (4.0-11.0) Red Blood Count 4.30 x10^6/uL (3.50-5.40) 4.24 x10^6/uL (3.50-5.40) Hemoglobin 12.4 g/dL (12.0-15.5) 12.4 g/dL (12.0-15.5) Hematocrit 38.0 % (36.0-47.0) 37.6 % (36.0-47.0) Mean Corpuscular Volume 89 fL (79-100) 89 fL (79-100) Mean Corpuscular Hemoglobin 29 pg (25-35) 29 pg (25-35) Mean Corpuscular Hemoglobin Concent 33 g/dL (31-37) 33 g/dL (31-37) Red Cell Distribution Width 13.7 % (11.5-14.5) 13.6 % (11.5-14.5) Platelet Count 374 x10^3/uL (140-400) 321 x10^3/uL (140-400) Neutrophils (%) (Auto) 89 % (31-73) 91 % (31-73) Lymphocytes (%) (Auto) 7 % (24-48) 5 % (24-48) Monocytes (%) (Auto) 4 % (0-9) 4 % (0-9) Eosinophils (%) (Auto) 0 % (0-3) 0 % (0-3) Basophils (%) (Auto) 0 % (0-3) 0 % (0-3) Neutrophils # (Auto) 10.1 x10^3/uL (1.8-7.7) 9.4 x10^3/uL (1.8-7.7) Lymphocytes # (Auto) 0.8 x10^3/uL (1.0-4.8) 0.5 x10^3/uL (1.0-4.8) Monocytes # (Auto) 0.5 x10^3/uL (0.0-1.1) 0.4 x10^3/uL (0.0-1.1) Eosinophils # (Auto) 0.0 x10^3/uL (0.0-0.7) 0.0 x10^3/uL (0.0-0.7) Basophils # (Auto) 0.0 x10^3/uL (0.0-0.2) 0.0 x10^3/uL (0.0-0.2) Sodium Level 145 mmol/L (136-145) 142 mmol/L (136-145) Potassium Level 3.3 mmol/L (3.5-5.1) 3.9 mmol/L (3.5-5.1) Chloride Level 109 mmol/L (98-107) 107 mmol/L (98-107) Carbon Dioxide Level 28 mmol/L (21-32) 31 mmol/L (21-32) Anion Gap 8 (6-14) 4 (6-14) Blood Urea Nitrogen 19 mg/dL (7-20) 21 mg/dL (7-20) Creatinine 0.6 mg/dL (0.6-1.0) 0.6 mg/dL (0.6-1.0) Estimated GFR (Cockcroft-Gault) 99.1 99.1 BUN/Creatinine Ratio 32 (6-20) 35 (6-20) Glucose Level 78 mg/dL (70-99) 123 mg/dL (70-99) Calcium Level 7.8 mg/dL (8.5-10.1) 7.7 mg/dL (8.5-10.1) Total Bilirubin 0.7 mg/dL (0.2-1.0) 0.6 mg/dL (0.2-1.0) Aspartate Amino Transf (AST/SGOT) 31 U/L (15-37) 26 U/L (15-37) Alanine Aminotransferase (ALT/SGPT) 34 U/L (14-59) 31 U/L (14-59) Alkaline Phosphatase 60 U/L (46-116) 59 U/L (46-116) Total Protein 5.2 g/dL (6.4-8.2) 4.9 g/dL (6.4-8.2) Albumin 2.0 g/dL (3.4-5.0) 2.0 g/dL (3.4-5.0) Albumin/Globulin Ratio 0.6 (1.0-1.7) 0.7 (1.0-1.7) Urine Collection Type Unknown Urine Color Yellow Urine Clarity Clear Urine pH 5.5 (<5.0-8.0) Urine Specific [place] >=1.030 (1.000-1.030) Urine Protein 30 mg/dL (NEG-TRACE) Urine Glucose (UA) 250 mg/dL (NEG) Urine Ketones (Stick) Trace mg/dL (NEG) Urine Blood Trace (NEG) Urine Nitrite Negative (NEG) Urine Bilirubin Negative (NEG) Urine Urobilinogen Dipstick 0.2 mg/dL (0.2 mg/dL) Urine Leukocyte Esterase Small (NEG) Urine RBC 0 /HPF (0-2) Urine WBC Occ /HPF (0-4) Urine Squamous Epithelial Cells Mod /LPF Urine Bacteria Few /HPF (0-FEW) Urine Yeast Present /HPF O2 Saturation 88 % (92-99) Arterial Blood pH 7.49 (7.35-7.45) Arterial Blood pCO2 at Patient Temp 36 mmHg (35-46) Arterial Blood pO2 at Patient Temp 52 mmHg (65-108) Arterial Blood HCO3 27 mmol/L (21-28) Arterial Blood Base Excess 3 mmol/L (-3-3) FiO2 50 Laboratory Tests Test 06/26/20 14:15 06/27/20 04:05 06/27/20 07:30 Urine Collection Type Unknown Urine Color Yellow Urine Clarity Clear Urine pH 5.5 (<5.0-8.0) Urine Specific [place] >=1.030 (1.000-1.030) Urine Protein 30 mg/dL (NEG-TRACE) Urine Glucose (UA) 250 mg/dL (NEG) Urine Ketones (Stick) Trace mg/dL (NEG) Urine Blood Trace (NEG) Urine Nitrite Negative (NEG) Urine Bilirubin Negative (NEG) Urine Urobilinogen Dipstick 0.2 mg/dL (0.2 mg/dL) Urine Leukocyte Esterase Small (NEG) Urine RBC 0 /HPF (0-2) Urine WBC Occ /HPF (0-4) Urine Squamous Epithelial Cells Mod /LPF Urine Bacteria Few /HPF (0-FEW) Urine Yeast Present /HPF White Blood Count 10.3 x10^3/uL (4.0-11.0) Red Blood Count 4.24 x10^6/uL (3.50-5.40) Hemoglobin 12.4 g/dL (12.0-15.5) Hematocrit 37.6 % (36.0-47.0) Mean Corpuscular Volume 89 fL (79-100) Mean Corpuscular Hemoglobin 29 pg (25-35) Mean Corpuscular Hemoglobin Concent 33 g/dL (31-37) Red Cell Distribution Width 13.6 % (11.5-14.5) Platelet Count 321 x10^3/uL (140-400) Neutrophils (%) (Auto) 91 % (31-73) Lymphocytes (%) (Auto) 5 % (24-48) Monocytes (%) (Auto) 4 % (0-9) Eosinophils (%) (Auto) 0 % (0-3) Basophils (%) (Auto) 0 % (0-3) Neutrophils # (Auto) 9.4 x10^3/uL (1.8-7.7) Lymphocytes # (Auto) 0.5 x10^3/uL (1.0-4.8) Monocytes # (Auto) 0.4 x10^3/uL (0.0-1.1) Eosinophils # (Auto) 0.0 x10^3/uL (0.0-0.7) Basophils # (Auto) 0.0 x10^3/uL (0.0-0.2) Sodium Level 142 mmol/L (136-145) Potassium Level 3.9 mmol/L (3.5-5.1) Chloride Level 107 mmol/L (98-107) Carbon Dioxide Level 31 mmol/L (21-32) Anion Gap 4 (6-14) Blood Urea Nitrogen 21 mg/dL (7-20) Creatinine 0.6 mg/dL (0.6-1.0) Estimated GFR (Cockcroft-Gault) 99.1 BUN/Creatinine Ratio 35 (6-20) Glucose Level 123 mg/dL (70-99) Calcium Level 7.7 mg/dL (8.5-10.1) Total Bilirubin 0.6 mg/dL (0.2-1.0) Aspartate Amino Transf (AST/SGOT) 26 U/L (15-37) Alanine Aminotransferase (ALT/SGPT) 31 U/L (14-59) Alkaline Phosphatase 59 U/L (46-116) Total Protein 4.9 g/dL (6.4-8.2) Albumin 2.0 g/dL (3.4-5.0) Albumin/Globulin Ratio 0.7 (1.0-1.7) O2 Saturation 88 % (92-99) Arterial Blood pH 7.49 (7.35-7.45) Arterial Blood pCO2 at Patient Temp 36 mmHg (35-46) Arterial Blood pO2 at Patient Temp 52 mmHg (65-108) Arterial Blood HCO3 27 mmol/L (21-28) Arterial Blood Base Excess 3 mmol/L (-3-3) FiO2 50 Comments CXR, reviewed Bilateral pneumonia, more confluent in the right upper lobe. Impression . IMPRESSION: 1. Acute hypoxic respiratory failure secondary to COVID-19 pneumonia and acute lung injury. 2. No significant tobacco history. 3. Abnormal chest x-ray consistent with COVID-19 pneumonia. 4. Mildly increased liver function tests. 5. hypoxemia 6. fever Plan . RECOMMENDATIONS: 1. Continue present vapotherm, setting reviewed, titrate FiO2 to keep sat 92%. 2. Monitor the course of treatment. 3. Cont. antibiotics. Continue Zosyn (started 06/22), added Zyvox 4. solumedrol to 40 bid 5. Monitor for inflammatory markers, D-Dimer 0.87 6. High dose DVT prophylaxis. 7. S/P convalescent plasma on 06/22/2020 and remdesivir. 8. Discussed with RN and RT. STEPHEN VALADEZ MD Jun 27, 2020 10:20
[2020-06-27] MEDS: STERILE WATER for RESP 1,000 ML BAG. INH PRN (12:06)
[2020-06-27] MEDS: LINEZOLID 600 MG TABLET PO SCH ×2 (12:16→20:39)
[2020-06-27] MEDS: BENZONATATE 100 MG CAPSULE. PO SCH ×3 (12:17→20:39)
--- NOTE | 2020-06-27 12:36 | PDOC ---
[employer] PROGRESS NOTE Date of Service DOS: DATE: 06/27/20 TIME: 12:28 Chief Complaint Chief Complaint A/P: Acute hypoxic respiratory failuresecondary to SARSCo.2 pneumonia. Continue supportive therapy, steroids room to severe protocol initiated on 06 21 will continue here. Consult ID and pulmonology SARS- COV2 pneumonia -continue IV Solu-Medrol wean O2 as tolerated I discussed with pulmonology to move to a negative pressure room if her desaturations worsen and she may need BiPAP.. Will try experimental drug to severe and convalescent plasma therapies with ID and pulmonology. Hypokalemiawill replace, check magnesium level Diarrhealikely COVID-19 related. Will check for C. 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 On 06/16/2020 she began having symptoms of diarrhea and shortness of breath and went to the ED to have COVID-19 testing, she was notified of the results on 06/17/2020 and asked to quarantine at home for 14 days. Over the course the next 5 days she became progressively more weak had fever and chills and began having myalgias and worsening diarrhea with little bit of abdominal pain. She returned to the ED on 06/21/2020 at [facility] and was found to be hypoxic. ABG on 06/21/2020 7.472/30 5.1/94.3 with HCO3 of 26.2 on nonrebreather 10 L labs on 06 21 sodium 135, K3.2, chloride 99, CO2 25, BUN 17, creatinine 1, glucose 115, lactate 1.9, calcium 8, ferritin 1491, bilirubin 0.4, AST 103, ALT 5 8, AL K phosphatase 62 troponin negative, CRP 129.6, total protein 6.3, albumin 2.7 prealbumin 9, lipase 185, B12 995, procalcitonin 0.40, TSH 1.427, d-dimer 1.16, WBC 7.1, Hb 14.1, platelets 302 chest x-ray on 06 21 read as worsening interstitial and airspace opacities in the right upper lobe and left lung base and worsening interstitial opacities in the right lung base compatible with multifocal pneumonia EKG appears normal sinus rhythm with heart rate approximately 85 bpm with normal axis some inferior T wave changes that are nonspecific no ST segment changes. 06/23: Seen in our ICU on Vapotherm. She is still complaining of weakness and diarrhea to me, 2 BM this morning. Afebrile. Still with cough today. O2 53 on Vapotherm. Remdesivir and convalescent FFP given 06/24: O2 63 on ABG this morning after BIPAP overnight. She feels a bit improved, appetite improved. No diarrhea yet today. Still weak with myalgias. 06/25:Less short of breath, on BiPAP with FiO2 70%. No chest pain or wheezing, no fevers. Still with some loose stools. LFTs normal today. WBC 10.2, Hb 12.7, platelets 4 2, NA 140 5K3.6 BUN 22, CR 0.6 ABG 7.48, 35, 69 BiPAP 70%. Febrile 1 1.2 F. Seen on BiPAP 01/05 with 50% FiO2. She is very comfortable with this. Has not had a bowel movement a day and a half. Asking a 70 bedpan right now though. Appetite is decreased. Plan: Already on Zosyn, have discussed with ID adding Zyvox would be appropriate. Vitals/I&O Vitals/I&O: Vital Signs Date Time Temp Pulse Resp B/P (MAP) Pulse Ox O2 Delivery O2 Flow Rate FiO2 06/27/20 12:11 Bi-pap 06/27/20 12:11 73 27 99/55 (70) 95 06/27/20 11:57 40.0 06/27/20 11:06 98.6 98.6 I & O 06/26/20 06/26/20 06/27/20 15:00 23:00 07:00 Intake Total 150 ml 400 ml Output Total 250 ml 150 ml Balance -100 ml 250 ml Physical Exam Physical Exam: GENERAL: Propped up in bed, alert, calm, on BiPAP HEENT: PERRL. Oral cavity dry NECK: Supple LUNGS: Diminished aeration, no accessory muscle use HEART: S1, S2 regular. ABDOMEN: Soft and nontender EXTREMITIES: No edema or cyanosis. SCDs bilaterally SKIN: No signs of rash. NEUROLOGIC: Alert and oriented, PIV General: Alert, Oriented X3, Cooperative, moderate distress Heart: Other (Rhonchi bilaterally) Abdomen: Normal bowel sounds, Soft, No tenderness, No hepatosplenomegaly, No masses Extremities: No clubbing, No cyanosis, No edema, Normal pulses, No tenderness/swelling Skin: No rashes, No breakdown, No significant lesion Labs Labs: Laboratory Tests Test 06/26/20 14:15 06/27/20 04:05 06/27/20 07:30 Urine Collection Type Unknown Urine Color Yellow Urine Clarity Clear Urine pH 5.5 (<5.0-8.0) Urine Specific [place] >=1.030 (1.000-1.030) Urine Protein 30 mg/dL (NEG-TRACE) Urine Glucose (UA) 250 mg/dL (NEG) Urine Ketones (Stick) Trace mg/dL (NEG) Urine Blood Trace (NEG) Urine Nitrite Negative (NEG) Urine Bilirubin Negative (NEG) Urine Urobilinogen Dipstick 0.2 mg/dL (0.2 mg/dL) Urine Leukocyte Esterase Small (NEG) Urine RBC 0 /HPF (0-2) Urine WBC Occ /HPF (0-4) Urine Squamous Epithelial Cells Mod /LPF Urine Bacteria Few /HPF (0-FEW) Urine Yeast Present /HPF White Blood Count 10.3 x10^3/uL (4.0-11.0) Red Blood Count 4.24 x10^6/uL (3.50-5.40) Hemoglobin 12.4 g/dL (12.0-15.5) Hematocrit 37.6 % (36.0-47.0) Mean Corpuscular Volume 89 fL (79-100) Mean Corpuscular Hemoglobin 29 pg (25-35) Mean Corpuscular Hemoglobin Concent 33 g/dL (31-37) Red Cell Distribution Width 13.6 % (11.5-14.5) Platelet Count 321 x10^3/uL (140-400) Neutrophils (%) (Auto) 91 % (31-73) Lymphocytes (%) (Auto) 5 % (24-48) Monocytes (%) (Auto) 4 % (0-9) Eosinophils (%) (Auto) 0 % (0-3) Basophils (%) (Auto) 0 % (0-3) Neutrophils # (Auto) 9.4 x10^3/uL (1.8-7.7) Lymphocytes # (Auto) 0.5 x10^3/uL (1.0-4.8) Monocytes # (Auto) 0.4 x10^3/uL (0.0-1.1) Eosinophils # (Auto) 0.0 x10^3/uL (0.0-0.7) Basophils # (Auto) 0.0 x10^3/uL (0.0-0.2) Sodium Level 142 mmol/L (136-145) Potassium Level 3.9 mmol/L (3.5-5.1) Chloride Level 107 mmol/L (98-107) Carbon Dioxide Level 31 mmol/L (21-32) Anion Gap 4 (6-14) Blood Urea Nitrogen 21 mg/dL (7-20) Creatinine 0.6 mg/dL (0.6-1.0) Estimated GFR (Cockcroft-Gault) 99.1 BUN/Creatinine Ratio 35 (6-20) Glucose Level 123 mg/dL (70-99) Calcium Level 7.7 mg/dL (8.5-10.1) Total Bilirubin 0.6 mg/dL (0.2-1.0) Aspartate Amino Transf (AST/SGOT) 26 U/L (15-37) Alanine Aminotransferase (ALT/SGPT) 31 U/L (14-59) Alkaline Phosphatase 59 U/L (46-116) Total Protein 4.9 g/dL (6.4-8.2) Albumin 2.0 g/dL (3.4-5.0) Albumin/Globulin Ratio 0.7 (1.0-1.7) O2 Saturation 88 % (92-99) Arterial Blood pH 7.49 (7.35-7.45) Arterial Blood pCO2 at Patient Temp 36 mmHg (35-46) Arterial Blood pO2 at Patient Temp 52 mmHg (65-108) Arterial Blood HCO3 27 mmol/L (21-28) Arterial Blood Base Excess 3 mmol/L (-3-3) FiO2 50 Assessment and Plan Assessmemt and Plan Assessment: A/P: Acute hypoxic respiratory failuresecondary to SARSCo.2 pneumonia. Continue supportive therapy, steroids room to severe protocol initiated on 8 4 will continue here. Consult ID and pulmonology SARS- COV2 pneumonia -continue IV Solu-Medrol wean O2 as tolerated I discussed with pulmonology to move to a negative pressure room if her desaturations worsen and she may need BiPAP.. Will try experimental drug to severe and convalescent plasma therapies with ID and pulmonology. Hypokalemiawill replace, check magnesium level Diarrhealikely COVID-19 related. Will check for C. difficile per protocol if more than 3 bowel movements in a day Transaminitis also likely related COVID-19, will monitor Severe protein calorie malnutritionlikely related to above Plan: ICU monitoring Cardiac monitoring Full code Tessalon 200mg PO DVT prophylaxis Appreciate subspecialist input Comment Review of Relevant I have reviewed the following items helen (where applicable) has been applied. Medications: Current Medications Medications (Trade) Dose Ordered Sig/Karin Route PRN Reason Start Time Stop Time Status Last Admin Dose Admin Benzonatate (Tessalon Perle) 200 mg Q8HRS PO 06/27/20 12:00 06/27/20 12:17 Justicifation of Admission Dx: Justifications for Admission: Justification of Admission Dx: Yes Respiratory Failure: Severe Resp Distress BENJIE NIELSEN III DO Jun 27, 2020 12:36
[2020-06-27] MEDS: MULTIVITAMIN with MINERAL TABLET. PO SCH (15:00)
[2020-06-28] VITALS (24 sets, daily range): BP systolic 111–141; BP diastolic 48–70
[2020-06-28] MEDS: PIPERACILLIN/TAZOBACTAM 3.375 GM in IV NORMAL SALINE 50ML 50 ML IV SCH ×5 (00:04→23:39)
[2020-06-28] MEDS: BENZONATATE 100 MG CAPSULE. PO SCH ×3 (06:16→21:40)
[2020-06-28] MEDS: STERILE WATER for RESP 1,000 ML BAG. INH PRN ×2 (07:48→17:57)
[2020-06-28 08:01] LABS: BASE EXCESS ABG 3 mmol/L (-3-3); HCO3 ABG 27 mmol/L (21-28); PCO2 ABG 38 mmHg (35-46); PO2 ABG 62 mmHg (65-108); SAT O2 ABG 92 % (92-99)
[2020-06-28] MEDS: MULTIVITAMIN with MINERAL TABLET. PO SCH (08:07)
[2020-06-28] MEDS: LACTOBACILLUS RHAMNOSUS GG 1 CAPSULE. PO SCH ×2 (08:07→21:18)
[2020-06-28] MEDS: ENOXAPARIN 40 MG/0.4 ML SYRINGE. SQ SCH ×2 (08:07→21:18)
[2020-06-28] MEDS: ZINC SULFATE 220 MG CAPSULE. PO SCH (08:07)
[2020-06-28] MEDS: methylPREDNISolone SOD SUCC PF 40 MG/ML VIAL. IV SCH ×2 (08:07→21:17)
[2020-06-28] MEDS: LINEZOLID 600 MG TABLET PO SCH ×2 (08:08→21:18)
[2020-06-28 08:09] LABS: FIO2 ABG 60/BIPAP
--- NOTE | 2020-06-28 10:27 | PDOC ---
PULMONARY PROGRESS NOTES DATE: 06/28/20 TIME: 10:26 Subjective on vapotherm, sob better, has occ cough, no pain, gets sob easily Vitals Vital Signs Date Time Temp Pulse Resp B/P (MAP) Pulse Ox O2 Delivery O2 Flow Rate FiO2 06/28/20 10:17 67 15 111/53 (72) 98 BiPAP/CPAP 06/28/20 08:00 97.8 97.8 06/28/20 07:49 40.0 Comments on vapotherm appears comfortable no paradoxical abd motion no audible wheezing alert RRR, no edema No rash ROS: No Nausea, No Chest Pain, No Abdominal Pain, No Increase Cough Labs Laboratory Tests Test 06/26/20 14:15 06/27/20 04:05 06/27/20 07:30 06/28/20 08:00 Urine Collection Type Unknown Urine Color Yellow Urine Clarity Clear Urine pH 5.5 (<5.0-8.0) Urine Specific [place] >=1.030 (1.000-1.030) Urine Protein 30 mg/dL (NEG-TRACE) Urine Glucose (UA) 250 mg/dL (NEG) Urine Ketones (Stick) Trace mg/dL (NEG) Urine Blood Trace (NEG) Urine Nitrite Negative (NEG) Urine Bilirubin Negative (NEG) Urine Urobilinogen Dipstick 0.2 mg/dL (0.2 mg/dL) Urine Leukocyte Esterase Small (NEG) Urine RBC 0 /HPF (0-2) Urine WBC Occ /HPF (0-4) Urine Squamous Epithelial Cells Mod /LPF Urine Bacteria Few /HPF (0-FEW) Urine Yeast Present /HPF White Blood Count 10.3 x10^3/uL (4.0-11.0) Red Blood Count 4.24 x10^6/uL (3.50-5.40) Hemoglobin 12.4 g/dL (12.0-15.5) Hematocrit 37.6 % (36.0-47.0) Mean Corpuscular Volume 89 fL (79-100) Mean Corpuscular Hemoglobin 29 pg (25-35) Mean Corpuscular Hemoglobin Concent 33 g/dL (31-37) Red Cell Distribution Width 13.6 % (11.5-14.5) Platelet Count 321 x10^3/uL (140-400) Neutrophils (%) (Auto) 91 % (31-73) Lymphocytes (%) (Auto) 5 % (24-48) Monocytes (%) (Auto) 4 % (0-9) Eosinophils (%) (Auto) 0 % (0-3) Basophils (%) (Auto) 0 % (0-3) Neutrophils # (Auto) 9.4 x10^3/uL (1.8-7.7) Lymphocytes # (Auto) 0.5 x10^3/uL (1.0-4.8) Monocytes # (Auto) 0.4 x10^3/uL (0.0-1.1) Eosinophils # (Auto) 0.0 x10^3/uL (0.0-0.7) Basophils # (Auto) 0.0 x10^3/uL (0.0-0.2) Sodium Level 142 mmol/L (136-145) Potassium Level 3.9 mmol/L (3.5-5.1) Chloride Level 107 mmol/L (98-107) Carbon Dioxide Level 31 mmol/L (21-32) Anion Gap 4 (6-14) Blood Urea Nitrogen 21 mg/dL (7-20) Creatinine 0.6 mg/dL (0.6-1.0) Estimated GFR (Cockcroft-Gault) 99.1 BUN/Creatinine Ratio 35 (6-20) Glucose Level 123 mg/dL (70-99) Calcium Level 7.7 mg/dL (8.5-10.1) Total Bilirubin 0.6 mg/dL (0.2-1.0) Aspartate Amino Transf (AST/SGOT) 26 U/L (15-37) Alanine Aminotransferase (ALT/SGPT) 31 U/L (14-59) Alkaline Phosphatase 59 U/L (46-116) Total Protein 4.9 g/dL (6.4-8.2) Albumin 2.0 g/dL (3.4-5.0) Albumin/Globulin Ratio 0.7 (1.0-1.7) O2 Saturation 88 % (92-99) 92 % (92-99) Arterial Blood pH 7.49 (7.35-7.45) 7.47 (7.35-7.45) Arterial Blood pCO2 at Patient Temp 36 mmHg (35-46) 38 mmHg (35-46) Arterial Blood pO2 at Patient Temp 52 mmHg (65-108) 62 mmHg (65-108) Arterial Blood HCO3 27 mmol/L (21-28) 27 mmol/L (21-28) Arterial Blood Base Excess 3 mmol/L (-3-3) 3 mmol/L (-3-3) FiO2 50 60/bipap Laboratory Tests Test 06/28/20 08:00 O2 Saturation 92 % (92-99) Arterial Blood pH 7.47 (7.35-7.45) Arterial Blood pCO2 at Patient Temp 38 mmHg (35-46) Arterial Blood pO2 at Patient Temp 62 mmHg (65-108) Arterial Blood HCO3 27 mmol/L (21-28) Arterial Blood Base Excess 3 mmol/L (-3-3) FiO2 60/bipap Comments CXR, reviewed Bilateral pneumonia, more confluent in the right upper lobe. Impression . IMPRESSION: 1. Acute hypoxic respiratory failure secondary to COVID-19 pneumonia and acute lung injury. 2. No significant tobacco history. 3. Abnormal chest x-ray consistent with COVID-19 pneumonia. 4. Mildly increased liver function tests. 5. hypoxemia 6. fever ,resolved Plan . RECOMMENDATIONS: 1. Continue present vapotherm, setting reviewed, titrate FiO2 to keep sat 92%. BIPAP qhs 2. Monitor the course of treatment. 3. Cont. antibiotics. Continue Zosyn (started 06/22), added Zyvox 4. solumedrol to 40 bid 5. Monitor for inflammatory markers, D-Dimer 0.87 6. High dose DVT prophylaxis. 7. S/P convalescent plasma on 06/22/2020 and remdesivir. 8. Discussed with RN and RT. STEPHEN VALADEZ MD Jun 28, 2020 10:27
--- NOTE | 2020-06-28 11:26 | NUR ---
SS following for discharge planning. SS reviewed pt chart and discussed with pt RN. Pt is currently on the BIPAP HS and Vapotherm daily. Pt on IV Zosyn. COVID19 positive. SS will continue to follow for discharge planning.
--- NOTE | 2020-06-28 12:10 | PDOC ---
Infectious Disease Note Subjective: Subjective Pt feels better on vapotherm no other complaints Vital Signs: Vital Signs Vital Signs Date Time Temp Pulse Resp B/P (MAP) Pulse Ox O2 Delivery O2 Flow Rate FiO2 06/28/20 11:21 93 Vapotherm 40.0 06/28/20 11:08 63 20 119/61 (80) 06/28/20 08:00 97.8 97.8 Physical Exam: PHYSICAL EXAM GENERAL: Propped up in bed, alert, calm, on BiPAP HEENT: PERRL. Oral cavity dry NECK: Supple LUNGS: Diminished aeration, no accessory muscle use HEART: S1, S2 regular. ABDOMEN: Soft and nontender EXTREMITIES: No edema or cyanosis. SCDs bilaterally SKIN: No signs of rash. NEUROLOGIC: Alert and oriented, PIV Medications: Inpatient Meds: Current Medications Medications (Trade) Dose Ordered Sig/Karin Start Time Stop Time Status Last Admin Dose Admin Acetaminophen (Tylenol) 650 mg PRN Q4HRS PRN 06/22/20 10:30 06/26/20 07:59 650 MG Benzonatate (Tessalon Perle) 200 mg Q8HRS 06/27/20 12:00 06/28/20 06:16 200 MG Enoxaparin Sodium (Lovenox 40mg Syringe) 40 mg Q12HR 06/22/20 10:30 06/28/20 08:07 40 MG Guaifenesin (Robitussin Dm) 10 ml PRN Q6HRS PRN 06/22/20 10:45 Lactobacillus Rhamnosus (Culturelle) 1 cap BID 06/23/20 21:00 06/28/20 08:07 1 CAP Linezolid (Zyvox) 600 mg BID 06/26/20 10:00 06/28/20 08:08 600 MG Methylprednisolone Sodium Succinate (SOLU-Medrol 40MG VIAL) 40 mg Q12HR 06/25/20 21:00 06/28/20 08:07 40 MG Multivitamins (Thera M Plus) 1 tab DAILY 06/27/20 15:00 06/28/20 08:07 1 TAB Non-Formulary Medication 1 ea/ Sodium Chloride 230 ml @ 460 mls/hr Q24H 06/22/20 13:00 06/25/20 13:29 DC 06/25/20 14:30 460 MLS/HR Ondansetron HCl (Zofran) 4 mg PRN Q4HRS PRN 06/22/20 10:30 Piperacillin Sod/ Tazobactam Sod (Zosyn Per Pharmacy) 1 each PRN DAILY PRN 06/22/20 11:00 Piperacillin Sod/ Tazobactam Sod 3.375 gm/Sodium Chloride 50 ml @ 100 mls/hr Q6HRS 06/22/20 12:00 06/28/20 06:16 100 MLS/HR Potassium Chloride/Water 100 ml @ 100 mls/hr Q1H 06/26/20 10:00 06/26/20 11:59 DC 06/26/20 10:54 100 MLS/HR Sterile Water (WATER for RESP) 1,000 ml CONT PRN 06/22/20 16:15 06/28/20 07:48 1,000 ML Zinc Sulfate (Orazinc) 220 mg DAILY 06/22/20 11:00 06/28/20 08:07 220 MG Zolpidem Tartrate (Ambien) 5 mg PRN QHS PRN 06/22/20 10:30 Labs: Lab Laboratory Tests Test 06/28/20 08:00 O2 Saturation 92 % (92-99) Arterial Blood pH 7.47 (7.35-7.45) Arterial Blood pCO2 at Patient Temp 38 mmHg (35-46) Arterial Blood pO2 at Patient Temp 62 mmHg (65-108) Arterial Blood HCO3 27 mmol/L (21-28) Arterial Blood Base Excess 3 mmol/L (-3-3) FiO2 60/bipap Objective: Assessment: Fever Leukocytosis, mild - on steroids COVID-19 positive. s/p convalescent plasma and Remdesivir. Bilateral pulmonary infiltrate. Hypoxemia. On BiPAP Obesity. Plan: Plan of Care cont supportive care Continue Zosyn ( 06/22), Zyvox (06/26) Steroids Convalescent plasma and Remdesivir given Probiotics Maintain aspiration precautions Airborne isolation for positive COVID F/U temp/labs f/u cults d/w GOLD COHEN MD Jun 28, 2020 12:10
--- NOTE | 2020-06-28 12:23 | PDOC ---
[employer] PROGRESS NOTE Date of Service DOS: DATE: 06/28/20 TIME: 12:18 Chief Complaint Chief Complaint A/P: Acute hypoxic respiratory failuresecondary to SARSCo.2 pneumonia. Continue supportive therapy, steroids room to severe protocol initiated on 06 21 will continue here. Consult ID and pulmonology SARS- COV2 pneumonia -continue IV Solu-Medrol wean O2 as tolerated I discussed with pulmonology to move to a negative pressure room if her desaturations worsen and she may need BiPAP.. Will try experimental drug to severe and convalescent plasma therapies with ID and pulmonology. Hypokalemiawill replace, check magnesium level Diarrhealikely COVID-19 related. Will check for C. difficile per protocol if more than 3 bowel movements in a day Transaminitis also likely related COVID-19, will monitor Severe protein calorie malnutritionlikely related to above FEN - General diet PPX - lovenox FULL CODE Dispo - ICU for above CC time 38 minutes History of Present Illness History of Present Illness 06/28/20 Patient seen and examined in ICU Chart reviewed Discussed with RN Patient is improving No cough today Patient on Vapotherm 06/27/20 Patient seen and examined in ICU Discussed with RN Patient seems to be improving She has a bit of a cough Patient has received treatment with plasma and remdesivir 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 On 06/16/2020 she began having symptoms of diarrhea and shortness of breath and went to the ED to have COVID-19 testing, she was notified of the results on 06/17/2020 and asked to quarantine at home for 14 days. Over the course the next 5 days she became progressively more weak had fever and chills and began having myalgias and worsening diarrhea with little bit of abdominal pain. She returned to the ED on 06/21/2020 at [facility] and was found to be hypoxic. ABG on 06/21/2020 7.472/30 5.1/94.3 with HCO3 of 26.2 on nonrebreather 10 L labs on 06 21 sodium 135, K3.2, chloride 99, CO2 25, BUN 17, creatinine 1, glucose 115, lactate 1.9, calcium 8, ferritin 1491, bilirubin 0.4, AST 103, ALT 5 8, AL K phosphatase 62 troponin negative, CRP 129.6, total protein 6.3, albumin 2.7 prealbumin 9, lipase 185, B12 995, procalcitonin 0.40, TSH 1.427, d-dimer 1.16, WBC 7.1, Hb 14.1, platelets 302 chest x-ray on 06 21 read as worsening interstitial and airspace opacities in the right upper lobe and left lung base and worsening interstitial opacities in the right lung base compatible with multifocal pneumonia EKG appears normal sinus rhythm with heart rate approximately 85 bpm with normal axis some inferior T wave changes that are nonspecific no ST segment changes. 06/23: Seen in our ICU on Vapotherm. She is still complaining of weakness and diarrhea to me, 2 BM this morning. Afebrile. Still with cough today. O2 53 on Vapotherm. Remdesivir and convalescent FFP given 06/24: O2 63 on ABG this morning after BIPAP overnight. She feels a bit improved, appetite improved. No diarrhea yet today. Still weak with myalgias. 06/25:Less short of breath, on BiPAP with FiO2 70%. No chest pain or wheezing, no fevers. Still with some loose stools. LFTs normal today. WBC 10.2, Hb 12.7, platelets 4 2, NA 140 5K3.6 BUN 22, CR 0.6 ABG 7.48, 35, 69 BiPAP 70%. Febrile 1 1.2 F. Seen on BiPAP 01/05 with 50% FiO2. She is very comfortable with this. Has not had a bowel movement a day and a half. Asking a 70 bedpan right now though. Appetite is decreased. Plan: Already on Zosyn, have discussed with ID adding Zyvox would be appropriate. Vitals/I&O Vitals/I&O: Vital Signs Date Time Temp Pulse Resp B/P (MAP) Pulse Ox O2 Delivery O2 Flow Rate FiO2 06/28/20 11:21 93 Vapotherm 40.0 06/28/20 11:08 63 20 119/61 (80) 06/28/20 08:00 97.8 97.8 I & O 06/27/20 06/27/20 06/28/20 15:00 23:00 07:00 Intake Total 370 ml 420 ml 200 ml Balance 370 ml 420 ml 200 ml Physical Exam Physical Exam: GENERAL: Propped up in bed, alert, calm, on BiPAP HEENT: PERRL. Oral cavity dry NECK: Supple LUNGS: Diminished aeration, no accessory muscle use HEART: S1, S2 regular. ABDOMEN: Soft and nontender EXTREMITIES: No edema or cyanosis. SCDs bilaterally SKIN: No signs of rash. NEUROLOGIC: Alert and oriented, PIV General: Alert, Oriented X3, Cooperative, moderate distress Heart: Regular rate, Other (Rhonchi bilaterally) Abdomen: Normal bowel sounds, Soft, No tenderness, No hepatosplenomegaly, No masses Extremities: No clubbing, No cyanosis, No edema, Normal pulses, No tenderne ss/swelling Skin: No rashes, No breakdown, No significant lesion Labs Labs: Laboratory Tests Test 06/28/20 08:00 O2 Saturation 92 % (92-99) Arterial Blood pH 7.47 (7.35-7.45) Arterial Blood pCO2 at Patient Temp 38 mmHg (35-46) Arterial Blood pO2 at Patient Temp 62 mmHg (65-108) Arterial Blood HCO3 27 mmol/L (21-28) Arterial Blood Base Excess 3 mmol/L (-3-3) FiO2 60/bipap Assessment and Plan Assessmemt and Plan Assessment: Acute hypoxic respiratory failuresecondary to SARSCo.2 pneumonia. Continue supportive therapy, steroids room to severe protocol initiated on 06 21 will continue here. Consult ID and pulmonology SARS- COV2 pneumonia -continue IV Solu-Medrol wean O2 as tolerated I discussed with pulmonology to move to a negative pressure room if her desaturations worsen and she may need BiPAP.. Will try experimental drug to severe and convalescent plasma therapies with ID and pulmonology. Hypokalemiawill replace, check magnesium level Diarrhealikely COVID-19 related. Will check for C. difficile per protocol if more than 3 bowel movements in a day Transaminitis also likely related COVID-19, will monitor Severe protein calorie malnutritionlikely related to above Plan: ICU monitoring Full code Continue IV antibiotics Continue multivitamins DVT prophylaxis Appreciate subspecialist input Comment Review of Relevant I have reviewed the following items helen (where applicable) has been applied. Medications: Current Medications Medications (Trade) Dose Ordered Sig/Karin Route PRN Reason Start Time Stop Time Status Last Admin Dose Admin Multivitamins (Thera M Plus) 1 tab DAILY PO 06/27/20 15:00 06/28/20 08:07 Justicifation of Admission Dx: Justifications for Admission: Justification of Admission Dx: Yes Respiratory Failure: Severe Resp Distress BENJIE NIELSEN III DO Jun 28, 2020 12:23
[2020-06-29] VITALS (24 sets, daily range): BP systolic 103–143; BP diastolic 54–70
[2020-06-29] MEDS: BENZONATATE 100 MG CAPSULE. PO SCH ×3 (06:04→21:11)
[2020-06-29] MEDS: PIPERACILLIN/TAZOBACTAM 3.375 GM in IV NORMAL SALINE 50ML 50 ML IV SCH (06:04)
[2020-06-29] MEDS: STERILE WATER for RESP 1,000 ML BAG. INH PRN ×4 (06:38→21:12)
[2020-06-29] MEDS: MULTIVITAMIN with MINERAL TABLET. PO SCH (08:19)
[2020-06-29] MEDS: LINEZOLID 600 MG TABLET PO SCH (08:19)
[2020-06-29] MEDS: LACTOBACILLUS RHAMNOSUS GG 1 CAPSULE. PO SCH ×2 (08:19→21:11)
[2020-06-29] MEDS: ENOXAPARIN 40 MG/0.4 ML SYRINGE. SQ SCH ×2 (08:20→21:11)
[2020-06-29] MEDS: ZINC SULFATE 220 MG CAPSULE. PO SCH (08:20)
[2020-06-29] MEDS: methylPREDNISolone SOD SUCC PF 40 MG/ML VIAL. IV SCH ×2 (08:20→21:12)
[2020-06-29 08:28] LABS: BASO % 0 % (0-3); EOS % 0 % (0-3); HEMATOCRIT 38.8 % (36.0-47.0); HEMOGLOBIN 13.3 g/dL (12.0-15.5); LYMPH # 0.6 x10^3/uL (1.0-4.8); LYMPH % 6 % (24-48); MEAN CORPUSCULAR HEMOGLOBIN 30 pg (25-35); MEAN CORPUSCULAR HGB CONC 34 g/dL (31-37); MEAN CORPUSCULAR VOLUME 89 fL (79-100); MONO # 0.7 x10^3/uL (0.0-1.1); MONO % 6 % (0-9); NEUT # 9.3 x10^3/uL (1.8-7.7); NEUT % 88 % (31-73); PLATELET COUNT 311 x10^3/uL (140-400); RED BLOOD COUNT 4.37 x10^6/uL (3.50-5.40); WHITE BLOOD COUNT 10.6 x10^3/uL (4.0-11.0)
--- NOTE | 2020-06-29 08:31 | PDOC ---
Infectious Disease Note Subjective: Subjective Pt feels better on vapotherm no other complaints Vital Signs: Vital Signs Vital Signs Date Time Temp Pulse Resp B/P (MAP) Pulse Ox O2 Delivery O2 Flow Rate FiO2 06/29/20 08:10 95 Vapotherm 40.0 06/29/20 07:00 62 21 126/63 (84) 06/29/20 04:00 97.0 97.0 Physical Exam: PHYSICAL EXAM GENERAL: Propped up in bed, alert, calm, on BiPAP HEENT: PERRL. Oral cavity dry NECK: Supple LUNGS: Diminished aeration, no accessory muscle use HEART: S1, S2 regular. ABDOMEN: Soft and nontender EXTREMITIES: No edema or cyanosis. SCDs bilaterally SKIN: No signs of rash. NEUROLOGIC: Alert and oriented, PIV Medications: Inpatient Meds: Current Medications Medications (Trade) Dose Ordered Sig/Karin Start Time Stop Time Status Last Admin Dose Admin Acetaminophen (Tylenol) 650 mg PRN Q4HRS PRN 06/22/20 10:30 06/26/20 07:59 650 MG Benzonatate (Tessalon Perle) 200 mg Q8HRS 06/27/20 12:00 06/29/20 06:04 200 MG Enoxaparin Sodium (Lovenox 40mg Syringe) 40 mg Q12HR 06/22/20 10:30 06/29/20 08:20 40 MG Guaifenesin (Robitussin Dm) 10 ml PRN Q6HRS PRN 06/22/20 10:45 Lactobacillus Rhamnosus (Culturelle) 1 cap BID 06/23/20 21:00 06/29/20 08:19 1 CAP Linezolid (Zyvox) 600 mg BID 06/26/20 10:00 06/29/20 08:19 600 MG Methylprednisolone Sodium Succinate (SOLU-Medrol 40MG VIAL) 40 mg Q12HR 06/25/20 21:00 06/29/20 08:20 40 MG Multivitamins (Thera M Plus) 1 tab DAILY 06/27/20 15:00 06/29/20 08:19 1 TAB Non-Formulary Medication 1 ea/ Sodium Chloride 230 ml @ 460 mls/hr Q24H 06/22/20 13:00 06/25/20 13:29 DC 06/25/20 14:30 460 MLS/HR Ondansetron HCl (Zofran) 4 mg PRN Q4HRS PRN 06/22/20 10:30 Piperacillin Sod/ Tazobactam Sod (Zosyn Per Pharmacy) 1 each PRN DAILY PRN 06/22/20 11:00 Piperacillin Sod/ Tazobactam Sod 3.375 gm/Sodium Chloride 50 ml @ 100 mls/hr Q6HRS 06/22/20 12:00 06/29/20 06:04 100 MLS/HR Potassium Chloride/Water 100 ml @ 100 mls/hr Q1H 06/26/20 10:00 06/26/20 11:59 DC 06/26/20 10:54 100 MLS/HR Sterile Water (WATER for RESP) 1,000 ml CONT PRN 06/22/20 16:15 06/29/20 08:00 1,000 ML Zinc Sulfate (Orazinc) 220 mg DAILY 06/22/20 11:00 06/29/20 08:20 220 MG Zolpidem Tartrate (Ambien) 5 mg PRN QHS PRN 06/22/20 10:30 Objective: Assessment: Fever Leukocytosis, mild - on steroids COVID-19 positive. s/p convalescent plasma and Remdesivir. Bilateral pulmonary infiltrate. Hypoxemia. On BiPAP Obesity. Plan: Plan of Care cont supportive care DC Zosyn ( 06/22), DC Zyvox (06/26) Steroids Convalescent plasma and Remdesivir given Probiotics Maintain aspiration precautions Airborne isolation for positive COVID F/U temp/labs f/u cults d/w GOLD COHEN MD Jun 29, 2020 08:31
[2020-06-29 08:43] LABS: CALCIUM 7.6 mg/dL (8.5-10.1); CREATININE 0.7 mg/dL (0.6-1.0); POTASSIUM 4.2 mmol/L (3.5-5.1)
--- NOTE | 2020-06-29 09:07 | PDOC ---
[facility] PROGRESS NOTE Date of Service DOS: DATE: 06/29/20 TIME: 08:58 Chief Complaint Chief Complaint A/P: Acute hypoxic respiratory failuresecondary to SARSCo.2 pneumonia. Continue supportive therapy, steroids room to severe protocol initiated on 4 will continue here. Consult ID and pulmonology SARS- COV2 pneumonia -continue IV Solu-Medrol wean O2 as tolerated I discussed with pulmonology to move to a negative pressure room if her desaturations worsen and she may need BiPAP.. Will try experimental drug to severe and convalescent plasma therapies with ID and pulmonology. Hypokalemiawill replace, check magnesium level Diarrhealikely COVID-19 related. Will check for C. difficile per protocol if more than 3 bowel movements in a day Transaminitis also likely related COVID-19, will monitor Severe protein calorie malnutritionlikely related to above FEN - General diet PPX - lovenox FULL CODE Dispo - ICU for above CC time 38 minutes History of Present Illness History of Present Illness 06/29/20 Patient seen and examined in ICU Chart reviewed Discussed with RN Patient was smiling and looking much better For the fist time last night she didn't require Bipap 06/28/20 Patient seen and examined in ICU Chart reviewed Discussed with RN Patient is improving No cough today Patient on Vapotherm 06/27/20 Patient seen and examined in ICU Discussed with RN Patient seems to be improving She has a bit of a cough Patient has received treatment with plasma and remdesivir Ms. 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 no known past medical history who is been transferred from [facility] for worsening hypoxia after diagnosis of SARSCOV2. On 06/16/2020 she began having symptoms of diarrhea and shortness of breath and went to the ED to have COVID-19 testing, she was notified of the results on 06/17/2020 and asked to quarantine at home for 14 days. Over the course the next 5 days she became progressively more weak had fever and chills and began having myalgias and worsening diarrhea with little bit of abdominal pain. She returned to the ED on 06/21/[address] [facility] and was found to be hypoxic. ABG on 06/21/2020 7.472/30 5.1/94.3 with HCO3 of 26.2 on nonrebreather 10 L labs on 4 sodium 135, K3.2, chloride 99, CO2 25, BUN 17, creatinine 1, glucose 115, lactate 1.9, calcium 8, ferritin 1491, bilirubin 0.4, AST 103, ALT 5 8, AL K phosphatase 62 troponin negative, CRP 129.6, total protein 6.3, albumin 2.7 prealbumin 9, lipase 185, B12 995, procalcitonin 0.40, TSH 1.427, d-dimer 1.16, WBC 7.1, Hb 14.1, platelets 302 chest x-ray on 06 21 read as worsening interstitial and airspace opacities in the right upper lobe and left lung base and worsening interstitial opacities in the right lung base compatible with multifocal pneumonia EKG appears normal sinus rhythm with heart rate approximately 85 bpm with normal axis some inferior T wave changes that are nonspecific no ST segment changes. 06/23: Seen in our ICU on Vapotherm. She is still complaining of weakness and diarrhea to me, 2 BM this morning. Afebrile. Still with cough today. O2 53 on Vapotherm. Remdesivir and convalescent FFP given 06/24: O2 63 on ABG this morning after BIPAP overnight. She feels a bit improved, appetite improved. No diarrhea yet today. Still weak with myalgias. 06/25:Less short of breath, on BiPAP with FiO2 70%. No chest pain or wheezing, no fevers. Still with some loose stools. LFTs normal today. WBC 10.2, Hb 12.7, platelets 4 2, NA 140 5K3.6 BUN 22, CR 0.6 ABG 7.48, 35, 69 BiPAP 70%. Febrile 1 1.2 F. Seen on BiPAP 01/05 with 50% FiO2. She is very comfortable with this. Has not had a bowel movement a day and a half. Asking a 70 bedpan right now though. Appetite is decreased. Plan: Already on Zosyn, have discussed with ID adding Zyvox would be appropriate. Vitals/I&O Vitals/I&O: Vital Signs Date Time Temp Pulse Resp B/P (MAP) Pulse Ox O2 Delivery O2 Flow Rate FiO2 06/29/20 08:10 95 Vapotherm 40.0 06/29/20 08:00 98.2 62 20 126/63 (84) 98.2 I & O 06/28/20 06/28/20 06/29/20 15:00 23:00 07:00 Intake Total 340 ml 300 ml 250 ml Balance 340 ml 300 ml 250 ml Physical Exam Physical Exam: GENERAL: Propped up in bed, alert, calm, on BiPAP HEENT: PERRL. Oral cavity dry NECK: Supple LUNGS: Diminished aeration, no accessory muscle use HEART: S1, S2 regular. ABDOMEN: Soft and nontender EXTREMITIES: No edema or cyanosis. SCDs bilaterally SKIN: No signs of rash. NEUROLOGIC: Alert and oriented, PIV General: Alert, Oriented X3, Cooperative, moderate distress Heart: Regular rate, Other (Rhonchi bilaterally) Abdomen: Normal bowel sounds, Soft, No tenderness, No hepatosplenomegaly, No masses Extremities: No clubbing, No cyanosis, No edema, Normal pulses, No tenderness/swelling Skin: No rashes, No breakdown, No significant lesion Labs Labs: Laboratory Tests Test 06/29/20 08:15 White Blood Count 10.6 x10^3/uL (4.0-11.0) Red Blood Count 4.37 x10^6/uL (3.50-5.40) Hemoglobin 13.3 g/dL (12.0-15.5) Hematocrit 38.8 % (36.0-47.0) Mean Corpuscular Volume 89 fL (79-100) Mean Corpuscular Hemoglobin 30 pg (25-35) Mean Corpuscular Hemoglobin Concent 34 g/dL (31-37) Red Cell Distribution Width 14.0 % (11.5-14.5) Platelet Count 311 x10^3/uL (140-400) Neutrophils (%) (Auto) 88 % (31-73) Lymphocytes (%) (Auto) 6 % (24-48) Monocytes (%) (Auto) 6 % (0-9) Eosinophils (%) (Auto) 0 % (0-3) Basophils (%) (Auto) 0 % (0-3) Neutrophils # (Auto) 9.3 x10^3/uL (1.8-7.7) Lymphocytes # (Auto) 0.6 x10^3/uL (1.0-4.8) Monocytes # (Auto) 0.7 x10^3/uL (0.0-1.1) Eosinophils # (Auto) 0.0 x10^3/uL (0.0-0.7) Basophils # (Auto) 0.0 x10^3/uL (0.0-0.2) Sodium Level 141 mmol/L (136-145) Potassium Level 4.2 mmol/L (3.5-5.1) Chloride Level 107 mmol/L (98-107) Carbon Dioxide Level 30 mmol/L (21-32) Anion Gap 4 (6-14) Blood Urea Nitrogen 21 mg/dL (7-20) Creatinine 0.7 mg/dL (0.6-1.0) Estimated GFR (Cockcroft-Gault) 83.0 Glucose Level 87 mg/dL (70-99) Calcium Level 7.6 mg/dL (8.5-10.1) Assessment and Plan Assessmemt and Plan Assessment: Acute hypoxic respiratory failuresecondary to SARSCo.2 pneumonia. Continue supportive therapy, steroids room to severe protocol initiated on 8 4 will continue here. Consult ID and pulmonology SARS- COV2 pneumonia -continue IV Solu-Medrol wean O2 as tolerated I discussed with pulmonology to move to a negative pressure room if her desaturations worsen and she may need BiPAP.. Will try experimental drug to severe and convalescent plasma therapies with ID and pulmonology. Hypokalemiawill replace, check magnesium level Diarrhealikely COVID-19 related. Will check for C. difficile per protocol if more than 3 bowel movements in a day Transaminitis also likely related COVID-19, will monitor Severe protein calorie malnutritionlikely related to above Plan: ICU monitoring Continue IV steroids Vapotherm DVT prophylaxis Full code Appreciate subspecialist input Comment Review of Relevant I have reviewed the following items helen (where applicable) has been applied. Justicifation of Admission Dx: Justifications for Admission: Justification of Admission Dx: Yes Respiratory Failure: Severe Resp Distress BENJIE NIELSEN III DO Jun 29, 2020 09:07
--- NOTE | 2020-06-29 10:46 | PDOC ---
PULMONARY PROGRESS NOTES DATE: 06/29/20 TIME: 10:43 Subjective on vapotherm, sob better, has occ cough, no pain continues to clinically improve Vitals Vital Signs Date Time Temp Pulse Resp B/P (MAP) Pulse Ox O2 Delivery O2 Flow Rate FiO2 06/29/20 10:00 74 27 112/54 (73) 97 High Flow Nasal Cannula 40.0 06/29/20 08:00 98.2 98.2 Comments on vapotherm appears comfortable no paradoxical abd motion no audible wheezing alert RRR, no edema No rash ROS: No Nausea, No Chest Pain, No Abdominal Pain, No Increase Cough Labs Laboratory Tests Test 06/28/20 08:00 06/29/20 08:15 O2 Saturation 92 % (92-99) Arterial Blood pH 7.47 (7.35-7.45) Arterial Blood pCO2 at Patient Temp 38 mmHg (35-46) Arterial Blood pO2 at Patient Temp 62 mmHg (65-108) Arterial Blood HCO3 27 mmol/L (21-28) Arterial Blood Base Excess 3 mmol/L (-3-3) FiO2 60/bipap White Blood Count 10.6 x10^3/uL (4.0-11.0) Red Blood Count 4.37 x10^6/uL (3.50-5.40) Hemoglobin 13.3 g/dL (12.0-15.5) Hematocrit 38.8 % (36.0-47.0) Mean Corpuscular Volume 89 fL (79-100) Mean Corpuscular Hemoglobin 30 pg (25-35) Mean Corpuscular Hemoglobin Concent 34 g/dL (31-37) Red Cell Distribution Width 14.0 % (11.5-14.5) Platelet Count 311 x10^3/uL (140-400) Neutrophils (%) (Auto) 88 % (31-73) Lymphocytes (%) (Auto) 6 % (24-48) Monocytes (%) (Auto) 6 % (0-9) Eosinophils (%) (Auto) 0 % (0-3) Basophils (%) (Auto) 0 % (0-3) Neutrophils # (Auto) 9.3 x10^3/uL (1.8-7.7) Lymphocytes # (Auto) 0.6 x10^3/uL (1.0-4.8) Monocytes # (Auto) 0.7 x10^3/uL (0.0-1.1) Eosinophils # (Auto) 0.0 x10^3/uL (0.0-0.7) Basophils # (Auto) 0.0 x10^3/uL (0.0-0.2) Sodium Level 141 mmol/L (136-145) Potassium Level 4.2 mmol/L (3.5-5.1) Chloride Level 107 mmol/L (98-107) Carbon Dioxide Level 30 mmol/L (21-32) Anion Gap 4 (6-14) Blood Urea Nitrogen 21 mg/dL (7-20) Creatinine 0.7 mg/dL (0.6-1.0) Estimated GFR (Cockcroft-Gault) 83.0 Glucose Level 87 mg/dL (70-99) Calcium Level 7.6 mg/dL (8.5-10.1) Laboratory Tests Test 06/29/20 08:15 White Blood Count 10.6 x10^3/uL (4.0-11.0) Red Blood Count 4.37 x10^6/uL (3.50-5.40) Hemoglobin 13.3 g/dL (12.0-15.5) Hematocrit 38.8 % (36.0-47.0) Mean Corpuscular Volume 89 fL (79-100) Mean Corpuscular Hemoglobin 30 pg (25-35) Mean Corpuscular Hemoglobin Concent 34 g/dL (31-37) Red Cell Distribution Width 14.0 % (11.5-14.5) Platelet Count 311 x10^3/uL (140-400) Neutrophils (%) (Auto) 88 % (31-73) Lymphocytes (%) (Auto) 6 % (24-48) Monocytes (%) (Auto) 6 % (0-9) Eosinophils (%) (Auto) 0 % (0-3) Basophils (%) (Auto) 0 % (0-3) Neutrophils # (Auto) 9.3 x10^3/uL (1.8-7.7) Lymphocytes # (Auto) 0.6 x10^3/uL (1.0-4.8) Monocytes # (Auto) 0.7 x10^3/uL (0.0-1.1) Eosinophils # (Auto) 0.0 x10^3/uL (0.0-0.7) Basophils # (Auto) 0.0 x10^3/uL (0.0-0.2) Sodium Level 141 mmol/L (136-145) Potassium Level 4.2 mmol/L (3.5-5.1) Chloride Level 107 mmol/L (98-107) Carbon Dioxide Level 30 mmol/L (21-32) Anion Gap 4 (6-14) Blood Urea Nitrogen 21 mg/dL (7-20) Creatinine 0.7 mg/dL (0.6-1.0) Estimated GFR (Cockcroft-Gault) 83.0 Glucose Level 87 mg/dL (70-99) Calcium Level 7.6 mg/dL (8.5-10.1) Comments CXR, reviewed Bilateral pneumonia, more confluent in the right upper lobe. Impression . IMPRESSION: 1. Acute hypoxic respiratory failure secondary to COVID-19 pneumonia and acute lung injury--- improving 2. No significant tobacco history. 3. Abnormal chest x-ray consistent with COVID-19 pneumonia. 4. Mildly increased liver function tests. 5. hypoxemia-- improving 6. fever ,resolved Plan . RECOMMENDATIONS: Continue present vapotherm 40 liters and 65% setting reviewed, titrate FiO2 to keep sat 92%. BIPAP qhs Monitor the course of treatment. solumedrol to 40 bid Monitor for inflammatory markers, High dose DVT prophylaxis. S/P convalescent plasma on 06/22/2020 and remdesivir. PT/OT -- OOB as tolerated Discussed with RN and RT. STEPHEN VALADEZ MD Jun 29, 2020 10:45
[2020-06-29] MEDS: guaiFENesin DM 200MG/20MG 10 ML SYRUP PO PRN (15:56)
[2020-06-30] VITALS (22 sets, daily range): BP systolic 103–126; BP diastolic 49–75
[2020-06-30] MEDS: BENZONATATE 100 MG CAPSULE. PO SCH ×3 (06:24→21:37)
--- NOTE | 2020-06-30 07:54 | PDOC ---
Infectious Disease Note Subjective: Subjective Pt feels better on vapotherm no other complaints Vital Signs: Vital Signs Vital Signs Date Time Temp Pulse Resp B/P (MAP) Pulse Ox O2 Delivery O2 Flow Rate FiO2 06/30/20 07:00 98.2 56 20 126/64 (84) 92 VAPOTHERM 40.0 98.2 Physical Exam: PHYSICAL EXAM GENERAL: Propped up in bed, alert, calm, on vapotherm HEENT: PERRL. Oral cavity dry NECK: Supple LUNGS: Diminished aeration, no accessory muscle use HEART: S1, S2 regular. ABDOMEN: Soft and nontender EXTREMITIES: No edema or cyanosis. SCDs bilaterally SKIN: No signs of rash. NEUROLOGIC: Alert and oriented, PIV Medications: Inpatient Meds: Current Medications Medications (Trade) Dose Ordered Sig/Karin Start Time Stop Time Status Last Admin Dose Admin Acetaminophen (Tylenol) 650 mg PRN Q4HRS PRN 06/22/20 10:30 06/26/20 07:59 650 MG Benzonatate (Tessalon Perle) 200 mg Q8HRS 06/27/20 12:00 06/30/20 06:24 200 MG Enoxaparin Sodium (Lovenox 40mg Syringe) 40 mg Q12HR 06/22/20 10:30 06/29/20 21:11 40 MG Guaifenesin (Robitussin Dm) 10 ml PRN Q6HRS PRN 06/22/20 10:45 06/29/20 15:56 10 ML Lactobacillus Rhamnosus (Culturelle) 1 cap BID 06/23/20 21:00 06/29/20 21:11 1 CAP Linezolid (Zyvox) 600 mg BID 06/26/20 10:00 06/29/20 09:22 DC 06/29/20 08:19 600 MG Methylprednisolone Sodium Succinate (SOLU-Medrol 40MG VIAL) 40 mg Q12HR 06/25/20 21:00 06/29/20 21:12 40 MG Multivitamins (Thera M Plus) 1 tab DAILY 06/27/20 15:00 06/29/20 08:19 1 TAB Non-Formulary Medication 1 ea/ Sodium Chloride 230 ml @ 460 mls/hr Q24H 06/22/20 13:00 06/25/20 13:29 DC 06/25/20 14:30 460 MLS/HR Ondansetron HCl (Zofran) 4 mg PRN Q4HRS PRN 06/22/20 10:30 Piperacillin Sod/ Tazobactam Sod (Zosyn Per Pharmacy) 1 each PRN DAILY PRN 06/22/20 11:00 06/29/20 09:23 DC Piperacillin Sod/ Tazobactam Sod 3.375 gm/Sodium Chloride 50 ml @ 100 mls/hr Q6HRS 06/22/20 12:00 06/29/20 09:22 DC 06/29/20 06:04 100 MLS/HR Potassium Chloride/Water 100 ml @ 100 mls/hr Q1H 06/26/20 10:00 06/26/20 11:59 DC 06/26/20 10:54 100 MLS/HR Sterile Water (WATER for RESP) 1,000 ml CONT PRN 06/22/20 16:15 06/29/20 21:12 1,000 ML Zinc Sulfate (Orazinc) 220 mg DAILY 06/22/20 11:00 06/29/20 08:20 220 MG Zolpidem Tartrate (Ambien) 5 mg PRN QHS PRN 06/22/20 10:30 Labs: Lab Laboratory Tests Test 06/29/20 08:15 White Blood Count 10.6 x10^3/uL (4.0-11.0) Red Blood Count 4.37 x10^6/uL (3.50-5.40) Hemoglobin 13.3 g/dL (12.0-15.5) Hematocrit 38.8 % (36.0-47.0) Mean Corpuscular Volume 89 fL (79-100) Mean Corpuscular Hemoglobin 30 pg (25-35) Mean Corpuscular Hemoglobin Concent 34 g/dL (31-37) Red Cell Distribution Width 14.0 % (11.5-14.5) Platelet Count 311 x10^3/uL (140-400) Neutrophils (%) (Auto) 88 % (31-73) Lymphocytes (%) (Auto) 6 % (24-48) Monocytes (%) (Auto) 6 % (0-9) Eosinophils (%) (Auto) 0 % (0-3) Basophils (%) (Auto) 0 % (0-3) Neutrophils # (Auto) 9.3 x10^3/uL (1.8-7.7) Lymphocytes # (Auto) 0.6 x10^3/uL (1.0-4.8) Monocytes # (Auto) 0.7 x10^3/uL (0.0-1.1) Eosinophils # (Auto) 0.0 x10^3/uL (0.0-0.7) Basophils # (Auto) 0.0 x10^3/uL (0.0-0.2) Sodium Level 141 mmol/L (136-145) Potassium Level 4.2 mmol/L (3.5-5.1) Chloride Level 107 mmol/L (98-107) Carbon Dioxide Level 30 mmol/L (21-32) Anion Gap 4 (6-14) Blood Urea Nitrogen 21 mg/dL (7-20) Creatinine 0.7 mg/dL (0.6-1.0) Estimated GFR (Cockcroft-Gault) 83.0 Glucose Level 87 mg/dL (70-99) Calcium Level 7.6 mg/dL (8.5-10.1) Objective: Assessment: Fever resolved Leukocytosis, on steroids COVID-19 positive. s/p convalescent plasma and Remdesivir. Bilateral pulmonary infiltrate. Hypoxemia. On BiPAP Obesity. UC yeast Plan: Plan of Care cont supportive care monitor off antibiotics Steroids Convalescent plasma and Remdesivir given Probiotics Maintain aspiration precautions d/w GOLD COHEN MD Jun 30, 2020 07:53
[2020-06-30] MEDS: guaiFENesin DM 200MG/20MG 10 ML SYRUP PO PRN (08:25)
[2020-06-30] MEDS: LACTOBACILLUS RHAMNOSUS GG 1 CAPSULE. PO SCH ×2 (08:26→21:37)
[2020-06-30] MEDS: methylPREDNISolone SOD SUCC PF 40 MG/ML VIAL. IV SCH ×2 (08:26→21:37)
[2020-06-30] MEDS: ENOXAPARIN 40 MG/0.4 ML SYRINGE. SQ SCH ×2 (08:26→21:38)
[2020-06-30] MEDS: MULTIVITAMIN with MINERAL TABLET. PO SCH (08:26)
--- NOTE | 2020-06-30 09:28 | PDOC ---
PULMONARY PROGRESS NOTES DATE: 06/30/20 TIME: 09:26 Subjective on vapotherm, sob better, has occ cough, no pain continues to clinically improve Vitals Vital Signs Date Time Temp Pulse Resp B/P (MAP) Pulse Ox O2 Delivery O2 Flow Rate FiO2 06/30/20 09:17 97.8 75 24 117/60 (79) 92 Nasal Cannula 40.0 97.8 Comments on vapotherm appears comfortable no paradoxical abd motion no audible wheezing alert RRR, no edema No rash ROS: No Nausea, No Chest Pain, No Abdominal Pain, No Increase Cough Labs Laboratory Tests Test 06/29/20 08:15 White Blood Count 10.6 x10^3/uL (4.0-11.0) Red Blood Count 4.37 x10^6/uL (3.50-5.40) Hemoglobin 13.3 g/dL (12.0-15.5) Hematocrit 38.8 % (36.0-47.0) Mean Corpuscular Volume 89 fL (79-100) Mean Corpuscular Hemoglobin 30 pg (25-35) Mean Corpuscular Hemoglobin Concent 34 g/dL (31-37) Red Cell Distribution Width 14.0 % (11.5-14.5) Platelet Count 311 x10^3/uL (140-400) Neutrophils (%) (Auto) 88 % (31-73) Lymphocytes (%) (Auto) 6 % (24-48) Monocytes (%) (Auto) 6 % (0-9) Eosinophils (%) (Auto) 0 % (0-3) Basophils (%) (Auto) 0 % (0-3) Neutrophils # (Auto) 9.3 x10^3/uL (1.8-7.7) Lymphocytes # (Auto) 0.6 x10^3/uL (1.0-4.8) Monocytes # (Auto) 0.7 x10^3/uL (0.0-1.1) Eosinophils # (Auto) 0.0 x10^3/uL (0.0-0.7) Basophils # (Auto) 0.0 x10^3/uL (0.0-0.2) Sodium Level 141 mmol/L (136-145) Potassium Level 4.2 mmol/L (3.5-5.1) Chloride Level 107 mmol/L (98-107) Carbon Dioxide Level 30 mmol/L (21-32) Anion Gap 4 (6-14) Blood Urea Nitrogen 21 mg/dL (7-20) Creatinine 0.7 mg/dL (0.6-1.0) Estimated GFR (Cockcroft-Gault) 83.0 Glucose Level 87 mg/dL (70-99) Calcium Level 7.6 mg/dL (8.5-10.1) Comments CXR, reviewed Bilateral pneumonia, more confluent in the right upper lobe. Impression . IMPRESSION: 1. Acute hypoxic respiratory failure secondary to COVID-19 pneumonia and acute lung injury--- improving 2. No significant tobacco history. 3. Abnormal chest x-ray consistent with COVID-19 pneumonia. 4. Mildly increased liver function tests. 5. hypoxemia-- improving 6. fever ,resolved Plan . RECOMMENDATIONS: Continue present vapotherm 40 liters and 60% setting reviewed, titrate FiO2 to keep sat 92%. Once down to 50%FIO2, will wean vapothern Monitor the course of treatment. solumedrol to 40 bid Monitor for inflammatory markers, repeat D-dIMER High dose DVT prophylaxis. S/P convalescent plasma on 06/22/2020 and remdesivir. PT/OT -- OOB as tolerated Discussed with RN and RT. STEPHEN VALADEZ MD Jun 30, 2020 09:27
[2020-06-30] MEDS: ZINC SULFATE 220 MG CAPSULE. PO SCH (09:58)
[2020-06-30] MEDS: STERILE WATER for RESP 1,000 ML BAG. INH PRN (10:09)
--- NOTE | 2020-06-30 11:33 | PDOC ---
[employer] PROGRESS NOTE Date of Service DOS: DATE: 06/30/20 TIME: 11:28 Chief Complaint Chief Complaint A/P: Acute hypoxic respiratory failuresecondary to SARSCo.2 pneumonia. Continue supportive therapy, steroids room to severe protocol initiated on 4 will continue here. Consult ID and pulmonology SARS- COV2 pneumonia -continue IV Solu-Medrol wean O2 as tolerated I discussed with pulmonology to move to a negative pressure room if her desaturations worsen and she may need BiPAP.. Will try experimental drug to severe and convalescent plasma therapies with ID and pulmonology. Hypokalemiawill replace, check magnesium level Diarrhealikely COVID-19 related. Will check for C. difficile per protocol if more than 3 bowel movements in a day Transaminitis also likely related COVID-19, will monitor Severe protein calorie malnutritionlikely related to above FEN - General diet PPX - lovenox FULL CODE Dispo - ICU for above CC time 38 minutes History of Present Illness History of Present Illness 06/30/20 Patient seen and examined in ICU Chart reviewed Discussed with RN Patient is improving 06/29/20 Patient seen and examined in ICU Chart reviewed Discussed with RN Patient was smiling and looking much better For the fist time last night she didn't require Bipap 06/28/20 Patient seen and examined in ICU Chart reviewed Discussed with RN Patient is improving No cough today Patient on Vapotherm 06/27/20 Patient seen and examined in ICU Discussed with RN Patient seems to be improving She has a bit of a cough Patient has received treatment with plasma and remdesivir Ms. 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 On 06/16/2020 she began having symptoms of diarrhea and shortness of breath and went to the ED to have COVID-19 testing, she was notified of the results on 06/17/2020 and asked to quarantine at home for 14 days. Over the course the next 5 days she became progressively more weak had fever and chills and began having myalgias and worsening diarrhea with little bit of abdominal pain. She returned to the ED on 06/21/2020 at [facility] and was found to be hypoxic. ABG on 06/21/2020 7.472/30 5.1/94.3 with HCO3 of 26.2 on nonrebreather 10 L labs on 06 21 sodium 135, K3.2, chloride 99, CO2 25, BUN 17, creatinine 1, glucose 115, lactate 1.9, calcium 8, ferritin 1491, bilirubin 0.4, AST 103, ALT 5 8, AL K phosphatase 62 troponin negative, CRP 129.6, total protein 6.3, albumin 2.7 prealbumin 9, lipase 185, B12 995, procalcitonin 0.40, TSH 1.427, d-dimer 1.16, WBC 7.1, Hb 14.1, platelets 302 chest x-ray on 06 21 read as worsening interstitial and airspace opacities in the right upper lobe and left lung base and worsening interstitial opacities in the right lung base compatible with multifocal pneumonia EKG appears normal sinus rhythm with heart rate approximately 85 bpm with normal axis some inferior T wave changes that are nonspecific no ST segment changes. 06/23: Seen in our ICU on Vapotherm. She is still complaining of weakness and diarrhea to me, 2 BM this morning. Afebrile. Still with cough today. O2 53 on Vapotherm. Remdesivir and convalescent FFP given 06/24: O2 63 on ABG this morning after BIPAP overnight. She feels a bit improved, appetite improved. No diarrhea yet today. Still weak with myalgias. 06/25:Less short of breath, on BiPAP with FiO2 70%. No chest pain or wheezing, no fevers. Still with some loose stools. LFTs normal today. WBC 10.2, Hb 12.7, platelets 4 2, NA 140 5K3.6 BUN 22, CR 0.6 ABG 7.48, 35, 69 BiPAP 70%. Febrile 1 1.2 F. Seen on BiPAP 01/05 with 50% FiO2. She is very comfortable with this. Has not had a bowel movement a day and a half. Asking a 70 bedpan right now though. Appetite is decreased. Plan: Already on Zosyn, have discussed with ID adding Zyvox would be appropriate. Vitals/I&O Vitals/I&O: Vital Signs Date Time Temp Pulse Resp B/P (MAP) Pulse Ox O2 Delivery O2 Flow Rate FiO2 06/30/20 10:00 97.8 69 24 106/61 (76) 92 Nasal Cannula 40.0 97.8 I & O 06/29/20 06/29/20 06/30/20 15:00 23:00 07:00 Intake Total 900 ml 700 ml Balance 900 ml 700 ml Physical Exam Physical Exam: GENERAL: Propped up in bed, alert, calm, on vapotherm HEENT: PERRL. Oral cavity dry NECK: Supple LUNGS: Diminished aeration, no accessory muscle use HEART: S1, S2 regular. ABDOMEN: Soft and nontender EXTREMITIES: No edema or cyanosis. SCDs bilaterally SKIN: No signs of rash. NEUROLOGIC: Alert and oriented, PIV General: Alert, Oriented X3, Cooperative, moderate distress Heart: Regular rate, Other (Rhonchi bilaterally) Abdomen: Normal bowel sounds, Soft, No tenderness, No hepatosplenomegaly, No masses Extremities: No clubbing, No cyanosis, No edema, Normal pulses, No tenderness/swelling Skin: No rashes, No breakdown, No significant lesion Assessment and Plan Assessmemt and Plan Assessment: Acute hypoxic respiratory failuresecondary to SARSCo.2 pneumonia. Continue supportive therapy, steroids room to severe protocol initiated on 06 21 will continue here. Consult ID and pulmonology SARS- COV2 pneumonia -continue IV Solu-Medrol wean O2 as tolerated I discussed with pulmonology to move to a negative pressure room if her desaturations worsen and she may need BiPAP.. Will try experimental drug to severe and convalescent plasma therapies with ID and pulmonology. Hypokalemiawill replace, check magnesium level Diarrhealikely COVID-19 related. Will check for C. difficile per protocol if more than 3 bowel movements in a day Transaminitis also likely related COVID-19, will monitor Severe protein calorie malnutritionlikely related to above Plan: ICU monitoring Continue IV steroids Patient received plasma and remdesivir Vapotherm Full code DVT prophylaxis Appreciate subspecialist input Comment Review of Relevant I have reviewed the following items helen (where applicable) has been applied. Justicifation of Admission Dx: Justifications for Admission: Justification of Admission Dx: Yes Respiratory Failure: Severe Resp Distress BENJIE NIELSEN III DO Jun 30, 2020 11:33
--- NOTE | 2020-06-30 13:55 | NUR ---
SS following up with discharge planning. SS reviewed pt chart and discussed with pt RN. Pt currently on Vapotherm. COVID19 positive. SS will continue to follow for discharge planning.
--- NOTE | 2020-06-30 17:27 | NUR ---
PT RESTING IN BED TURN SELF FREQUENTLY AND TAKING IN GOOD PO. REMAINS ON VAPOTHERM. PT PROGRESSING TOWARDS GOALS.
[2020-07-01] VITALS (23 sets, daily range): BP systolic 92–122; BP diastolic 50–74
[2020-07-01] MEDS: STERILE WATER for RESP 1,000 ML BAG. INH PRN ×2 (00:08→23:53)
[2020-07-01 04:31] LABS: BASO % 0 % (0-3); EOS % 0 % (0-3); HEMATOCRIT 38.4 % (36.0-47.0); LYMPH # 0.8 x10^3/uL (1.0-4.8); LYMPH % 7 % (24-48); MEAN CORPUSCULAR HEMOGLOBIN 30 pg (25-35); MEAN CORPUSCULAR HGB CONC 34 g/dL (31-37); MEAN CORPUSCULAR VOLUME 89 fL (79-100); MONO # 0.4 x10^3/uL (0.0-1.1); MONO % 4 % (0-9); NEUT # 9.6 x10^3/uL (1.8-7.7); NEUT % 89 % (31-73); PLATELET COUNT 297 x10^3/uL (140-400); RED BLOOD COUNT 4.32 x10^6/uL (3.50-5.40); RED CELL DISTRIBUTION WIDTH 13.5 % (11.5-14.5); WHITE BLOOD COUNT 10.8 x10^3/uL (4.0-11.0)
[2020-07-01 04:42] LABS: CALCIUM 7.5 mg/dL (8.5-10.1); CREATININE 0.7 mg/dL (0.6-1.0); POTASSIUM 4.5 mmol/L (3.5-5.1)
[2020-07-01] MEDS: BENZONATATE 100 MG CAPSULE. PO SCH ×3 (06:16→21:40)
--- NOTE | 2020-07-01 08:20 | PDOC ---
Infectious Disease Note Subjective: Subjective Pt feels better Remains on vapotherm Appetite has improved Vital Signs: Vital Signs Vital Signs Date Time Temp Pulse Resp B/P (MAP) Pulse Ox O2 Delivery O2 Flow Rate FiO2 07/01/20 07:00 97.8 62 18 102/65 (77) 92 vapotherm 40.0 97.8 Physical Exam: PHYSICAL EXAM GENERAL: Propped up in bed, alert, calm, on vapotherm HEENT: PERRL. Oral cavity dry NECK: Supple LUNGS: Diminished aeration, no accessory muscle use HEART: S1, S2 regular. ABDOMEN: Soft and nontender EXTREMITIES: No edema or cyanosis. SCDs bilaterally SKIN: No signs of rash. NEUROLOGIC: Alert and oriented, PIV Medications: Inpatient Meds: Current Medications Medications (Trade) Dose Ordered Sig/Karin Start Time Stop Time Status Last Admin Dose Admin Acetaminophen (Tylenol) 650 mg PRN Q4HRS PRN 06/22/20 10:30 06/26/20 07:59 Benzonatate (Tessalon Perle) 200 mg Q8HRS 06/27/20 12:00 07/01/20 06:16 Enoxaparin Sodium (Lovenox 40mg Syringe) 40 mg Q12HR 06/22/20 10:30 06/30/20 21:38 Guaifenesin (Robitussin Dm) 10 ml PRN Q6HRS PRN 06/22/20 10:45 06/30/20 08:25 Lactobacillus Rhamnosus (Culturelle) 1 cap BID 06/23/20 21:00 06/30/20 21:37 Linezolid (Zyvox) 600 mg BID 06/26/20 10:00 06/29/20 09:22 DC 06/29/20 08:19 Methylprednisolone Sodium Succinate (SOLU-Medrol 40MG VIAL) 40 mg Q12HR 06/25/20 21:00 06/30/20 21:37 Multivitamins (Thera M Plus) 1 tab DAILY 06/27/20 15:00 06/30/20 08:26 Non-Formulary Medication 1 ea/ Sodium Chloride 230 ml @ 460 mls/hr Q24H 06/22/20 13:00 06/25/20 13:29 DC 06/25/20 14:30 Ondansetron HCl (Zofran) 4 mg PRN Q4HRS PRN 06/22/20 10:30 Piperacillin Sod/ Tazobactam Sod (Zosyn Per Pharmacy) 1 each PRN DAILY PRN 06/22/20 11:00 06/29/20 09:23 DC Piperacillin Sod/ Tazobactam Sod 3.375 gm/Sodium Chloride 50 ml @ 100 mls/hr Q6HRS 06/22/20 12:00 06/29/20 09:22 DC 06/29/20 06:04 Potassium Chloride/Water 100 ml @ 100 mls/hr Q1H 06/26/20 10:00 06/26/20 11:59 DC 06/26/20 10:54 Sterile Water (WATER for RESP) 1,000 ml CONT PRN 06/22/20 16:15 07/01/20 00:08 Zinc Sulfate (Orazinc) 220 mg DAILY 06/22/20 11:00 06/30/20 09:58 Zolpidem Tartrate (Ambien) 5 mg PRN QHS PRN 06/22/20 10:30 Labs: Lab Laboratory Tests Test 06/30/20 11:34 07/01/20 03:30 D-Dimer (Iraida) 1.95 ug/mlFEU (0.00-0.50) White Blood Count 10.8 x10^3/uL (4.0-11.0) Red Blood Count 4.32 x10^6/uL (3.50-5.40) Hemoglobin 13.0 g/dL (12.0-15.5) Hematocrit 38.4 % (36.0-47.0) Mean Corpuscular Volume 89 fL (79-100) Mean Corpuscular Hemoglobin 30 pg (25-35) Mean Corpuscular Hemoglobin Concent 34 g/dL (31-37) Red Cell Distribution Width 13.5 % (11.5-14.5) Platelet Count 297 x10^3/uL (140-400) Neutrophils (%) (Auto) 89 % (31-73) Lymphocytes (%) (Auto) 7 % (24-48) Monocytes (%) (Auto) 4 % (0-9) Eosinophils (%) (Auto) 0 % (0-3) Basophils (%) (Auto) 0 % (0-3) Neutrophils # (Auto) 9.6 x10^3/uL (1.8-7.7) Lymphocytes # (Auto) 0.8 x10^3/uL (1.0-4.8) Monocytes # (Auto) 0.4 x10^3/uL (0.0-1.1) Eosinophils # (Auto) 0.0 x10^3/uL (0.0-0.7) Basophils # (Auto) 0.0 x10^3/uL (0.0-0.2) Sodium Level 142 mmol/L (136-145) Potassium Level 4.5 mmol/L (3.5-5.1) Chloride Level 105 mmol/L (98-107) Carbon Dioxide Level 29 mmol/L (21-32) Anion Gap 8 (6-14) Blood Urea Nitrogen 21 mg/dL (7-20) Creatinine 0.7 mg/dL (0.6-1.0) Estimated GFR (Cockcroft-Gault) 83.0 Glucose Level 106 mg/dL (70-99) Calcium Level 7.5 mg/dL (8.5-10.1) Objective: Assessment: Fever resolved Leukocytosis, on steroids COVID-19 positive. s/p convalescent plasma and Remdesivir. Bilateral pulmonary infiltrate. Hypoxemia. On BiPAP Obesity. UC yeast Plan: Plan of Care cont supportive care monitor off antibiotics Steroids Convalescent plasma and Remdesivir given Probiotics Maintain aspiration precautions d/w GOLD COHEN MD Jul 01, 2020 08:20
[2020-07-01] MEDS: methylPREDNISolone SOD SUCC PF 40 MG/ML VIAL. IV SCH ×2 (08:32→09:45)
[2020-07-01] MEDS: ENOXAPARIN 40 MG/0.4 ML SYRINGE. SQ SCH ×2 (08:32→21:40)
[2020-07-01] MEDS: LACTOBACILLUS RHAMNOSUS GG 1 CAPSULE. PO SCH ×2 (08:32→21:40)
[2020-07-01] MEDS: ZINC SULFATE 220 MG CAPSULE. PO SCH (08:32)
[2020-07-01] MEDS: MULTIVITAMIN with MINERAL TABLET. PO SCH (08:32)
[2020-07-01 08:36] LABS: BASE EXCESS ABG -1 mmol/L (-3-3); HCO3 ABG 22 mmol/L (21-28); PCO2 ABG 31 mmHg (35-46); PO2 ABG 65 mmHg (65-108); SAT O2 ABG 92 % (92-99)
[2020-07-01 08:40] LABS: FIO2 ABG 60%40L
--- NOTE | 2020-07-01 10:33 | PDOC ---
[employer] PROGRESS NOTE Date of Service DOS: DATE: 07/01/20 TIME: 10:28 Chief Complaint Chief Complaint A/P: Acute hypoxic respiratory failuresecondary to SARSCo.2 pneumonia. Continue supportive therapy, steroids room to severe protocol initiated on 06 21 will continue here. Consult ID and pulmonology SARS- COV2 pneumonia -continue IV Solu-Medrol wean O2 as tolerated I discussed with pulmonology to move to a negative pressure room if her desaturations worsen and she may need BiPAP.. Will try experimental drug to severe and convalescent plasma therapies with ID and pulmonology. Hypokalemiawill replace, check magnesium level Diarrhealikely COVID-19 related. Will check for C. difficile per protocol if more than 3 bowel movements in a day Transaminitis also likely related COVID-19, will monitor Severe protein calorie malnutritionlikely related to above FEN - General diet PPX - lovenox FULL CODE Dispo - ICU for above CC time 38 minutes History of Present Illness History of Present Illness 07/01/20 Patient seen and examined in ICU Chart reviewed Discussed with RN Patient improving 06/30/20 Patient seen and examined in ICU Chart reviewed Discussed with RN Patient is improving 06/29/20 Patient seen and examined in ICU Chart reviewed Discussed with RN Patient was smiling and looking much better For the fist time last night she didn't require Bipap 06/28/20 Patient seen and examined in ICU Chart reviewed Discussed with RN Patient is improving No cough today Patient on Vapotherm 06/27/20 Patient seen and examined in ICU Discussed with RN Patient seems to be improving She has a bit of a cough Patient has received treatment with plasma and remdesivir 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 On 06/16/2020 she began having symptoms of diarrhea and shortness of breath and went to the ED to have COVID-19 testing, she was notified of the results on 06/17/2020 and asked to quarantine at home for 14 days. Over the course the next 5 days she became progressively more weak had fever and chills and began having myalgias and worsening diarrhea with little bit of abdominal pain. She returned to the ED on 06/21/2020 at [facility] and was found to be hypoxic. ABG on 06/21/2020 7.472/30 5.1/94.3 with HCO3 of 26.2 on nonrebreather 10 L labs on 06 21 sodium 135, K3.2, chloride 99, CO2 25, BUN 17, creatinine 1, glucose 115, lactate 1.9, calcium 8, ferritin 1491, bilirubin 0.4, AST 103, ALT 5 8, AL K phosphatase 62 troponin negative, CRP 129.6, total protein 6.3, albumin 2.7 prea lbumin 9, lipase 185, B12 995, procalcitonin 0.40, TSH 1.427, d-dimer 1.16, WBC 7.1, Hb 14.1, platelets 302 chest x-ray on 06 21 read as worsening interstitial and airspace opacities in the right upper lobe and left lung base and worsening interstitial opacities in the right lung base compatible with multifocal pneumonia EKG appears normal sinus rhythm with heart rate approximately 85 bpm with normal axis some inferior T wave changes that are nonspecific no ST segment changes. 06/23: Seen in our ICU on Vapotherm. She is still complaining of weakness and diarrhea to me, 2 BM this morning. Afebrile. Still with cough today. O2 53 on Vapotherm. Remdesivir and convalescent FFP given 06/24: O2 63 on ABG this morning after BIPAP overnight. She feels a bit improved, appetite improved. No diarrhea yet today. Still weak with myalgias. 06/25:Less short of breath, on BiPAP with FiO2 70%. No chest pain or wheezing, no fevers. Still with some loose stools. LFTs normal today. WBC 10.2, Hb 12.7, platelets 4 2, NA 140 5K3.6 BUN 22, CR 0.6 ABG 7.48, 35, 69 BiPAP 70%. Febrile 1 1.2 F. Seen on BiPAP 01/05 with 50% FiO2. She is very comfortable with this. Has not had a bowel movement a day and a half. Asking a 70 bedpan right now though. Appetite is decreased. Plan: Already on Zosyn, have discussed with ID adding Zyvox would be appropriate. Vitals/I&O Vitals/I&O: Vital Signs Date Time Temp Pulse Resp B/P (MAP) Pulse Ox O2 Delivery O2 Flow Rate FiO2 07/01/20 08:15 92 vapotherm 40.0 07/01/20 07:00 97.8 62 18 102/65 (77) 97.8 I & O 06/30/20 06/30/20 07/01/20 15:00 23:00 07:00 Intake Total 750 ml 200 ml Output Total 201 ml 0 ml Balance -201 ml 750 ml 200 ml Physical Exam Physical Exam: GENERAL: Propped up in bed, alert, calm, on vapotherm HEENT: PERRL. Oral cavity dry NECK: Supple LUNGS: Diminished aeration, no accessory muscle use HEART: S1, S2 regular. ABDOMEN: Soft and nontender EXTREMITIES: No edema or cyanosis. SCDs bilaterally SKIN: No signs of rash. NEUROLOGIC: Alert and oriented, PIV General: Alert, Oriented X3, Cooperative, moderate distress Heart: Regular rate, Other (Rhonchi bilaterally) Abdomen: Normal bowel sounds, Soft, No tenderness, No hepatosplenomegaly, No masses Extremities: No clubbing, No cyanosis, No edema, Normal pulses, No tenderness/swelling Skin: No rashes, No breakdown, No significant lesion Labs Labs: Laboratory Tests Test 06/30/20 11:34 07/01/20 03:30 07/01/20 08:30 D-Dimer (Iraida) 1.95 ug/mlFEU (0.00-0.50) White Blood Count 10.8 x10^3/uL (4.0-11.0) Red Blood Count 4.32 x10^6/uL (3.50-5.40) Hemoglobin 13.0 g/dL (12.0-15.5) Hematocrit 38.4 % (36.0-47.0) Mean Corpuscular Volume 89 fL (79-100) Mean Corpuscular Hemoglobin 30 pg (25-35) Mean Corpuscular Hemoglobin Concent 34 g/dL (31-37) Red Cell Distribution Width 13.5 % (11.5-14.5) Platelet Count 297 x10^3/uL (140-400) Neutrophils (%) (Auto) 89 % (31-73) Lymphocytes (%) (Auto) 7 % (24-48) Monocytes (%) (Auto) 4 % (0-9) Eosinophils (%) (Auto) 0 % (0-3) Basophils (%) (Auto) 0 % (0-3) Neutrophils # (Auto) 9.6 x10^3/uL (1.8-7.7) Lymphocytes # (Auto) 0.8 x10^3/uL (1.0-4.8) Monocytes # (Auto) 0.4 x10^3/uL (0.0-1.1) Eosinophils # (Auto) 0.0 x10^3/uL (0.0-0.7) Basophils # (Auto) 0.0 x10^3/uL (0.0-0.2) Sodium Level 142 mmol/L (136-145) Potassium Level 4.5 mmol/L (3.5-5.1) Chloride Level 105 mmol/L (98-107) Carbon Dioxide Level 29 mmol/L (21-32) Anion Gap 8 (6-14) Blood Urea Nitrogen 21 mg/dL (7-20) Creatinine 0.7 mg/dL (0.6-1.0) Estimated GFR (Cockcroft-Gault) 83.0 Glucose Level 106 mg/dL (70-99) Calcium Level 7.5 mg/dL (8.5-10.1) O2 Saturation 92 % (92-99) Arterial Blood pH 7.46 (7.35-7.45) Arterial Blood pCO2 at Patient Temp 31 mmHg (35-46) Arterial Blood pO2 at Patient Temp 65 mmHg (65-108) Arterial Blood HCO3 22 mmol/L (21-28) Arterial Blood Base Excess -1 mmol/L (-3-3) FiO2 60%40l Assessment and Plan Assessmemt and Plan Assessment: Acute hypoxic respiratory failuresecondary to SARSCo.2 pneumonia. Continue supportive therapy, steroids room to severe protocol initiated on 06 21 will continue here. Consult ID and pulmonology SARS- COV2 pneumonia -continue IV Solu-Medrol wean O2 as tolerated I discussed with pulmonology to move to a negative pressure room if her desaturations worsen and she may need BiPAP.. Will try experimental drug to severe and convalescent plasma therapies with ID and pulmonology. Hypokalemiawill replace, check magnesium level Diarrhealikely COVID-19 related. Will check for C. difficile per protocol if more than 3 bowel movements in a day Transaminitis also likely related COVID-19, will monitor Severe protein calorie malnutritionlikely related to above Plan: ICU monitoring Respiratory isolation Continue IV steroids Vapotherm DVT prophylaxis Appreciate subspecialist input Comment Review of Relevant I have reviewed the following items helen (where applicable) has been applied. Justicifation of Admission Dx: Justifications for Admission: Justification of Admission Dx: Yes Respiratory Failure: Severe Resp Distress BENJIE NIELSEN III DO Jul 01, 2020 10:33
--- NOTE | 2020-07-01 15:17 | NUR ---
SS following up with discharge planning. SS reviewed pt chart and discussed with pt RN. Pt COVID19 positive. Pt on high flow nasal canula. SS will continue to follow for discharge planning.
[2020-07-02] VITALS (20 sets, daily range): BP systolic 77–104; BP diastolic 46–62
[2020-07-02 06:06] LABS: BASO % 0 % (0-3); EOS # 0.1 x10^3/uL (0.0-0.7); EOS % 1 % (0-3); HEMATOCRIT 38.9 % (36.0-47.0); HEMOGLOBIN 12.9 g/dL (12.0-15.5); LYMPH # 2.3 x10^3/uL (1.0-4.8); LYMPH % 19 % (24-48); MEAN CORPUSCULAR HEMOGLOBIN 30 pg (25-35); MEAN CORPUSCULAR HGB CONC 33 g/dL (31-37); MEAN CORPUSCULAR VOLUME 90 fL (79-100); MONO # 0.9 x10^3/uL (0.0-1.1); MONO % 8 % (0-9); NEUT # 8.4 x10^3/uL (1.8-7.7); NEUT % 72 % (31-73); PLATELET COUNT 273 x10^3/uL (140-400); RED BLOOD COUNT 4.31 x10^6/uL (3.50-5.40); RED CELL DISTRIBUTION WIDTH 13.9 % (11.5-14.5); WHITE BLOOD COUNT 11.7 x10^3/uL (4.0-11.0)
[2020-07-02 06:20] LABS: CREATININE 0.7 mg/dL (0.6-1.0); POTASSIUM 4.1 mmol/L (3.5-5.1)
[2020-07-02] MEDS: BENZONATATE 100 MG CAPSULE. PO SCH ×3 (06:29→22:36)
--- NOTE | 2020-07-02 07:00 | PDOC ---
PULMONARY PROGRESS NOTES DATE: 07/02/20 TIME: 06:57 Subjective on vapotherm, 40 lpm, fio2 60% sob better, has occ cough, no pain continues to clinically improve Vitals Vital Signs Date Time Temp Pulse Resp B/P (MAP) Pulse Ox O2 Delivery O2 Flow Rate FiO2 07/02/20 06:26 69 97/49 (65) 95 High Flow Nasal Cannula 40.0 07/02/20 04:00 97.6 18 97.6 Comments on vapotherm appears comfortable alert no paradoxical abd motion no audible wheezing no accessory muscle use alert RRR, no edema No rash ROS: No Nausea, No Chest Pain, No Abdominal Pain, No Increase Cough Labs Laboratory Tests Test 06/30/20 11:34 07/01/20 03:30 07/01/20 08:30 07/02/20 05:30 D-Dimer (Iraida) 1.95 ug/mlFEU (0.00-0.50) White Blood Count 10.8 x10^3/uL (4.0-11.0) 11.7 x10^3/uL (4.0-11.0) Red Blood Count 4.32 x10^6/uL (3.50-5.40) 4.31 x10^6/uL (3.50-5.40) Hemoglobin 13.0 g/dL (12.0-15.5) 12.9 g/dL (12.0-15.5) Hematocrit 38.4 % (36.0-47.0) 38.9 % (36.0-47.0) Mean Corpuscular Volume 89 fL (79-100) 90 fL (79-100) Mean Corpuscular Hemoglobin 30 pg (25-35) 30 pg (25-35) Mean Corpuscular Hemoglobin Concent 34 g/dL (31-37) 33 g/dL (31-37) Red Cell Distribution Width 13.5 % (11.5-14.5) 13.9 % (11.5-14.5) Platelet Count 297 x10^3/uL (140-400) 273 x10^3/uL (140-400) Neutrophils (%) (Auto) 89 % (31-73) 72 % (31-73) Lymphocytes (%) (Auto) 7 % (24-48) 19 % (24-48) Monocytes (%) (Auto) 4 % (0-9) 8 % (0-9) Eosinophils (%) (Auto) 0 % (0-3) 1 % (0-3) Basophils (%) (Auto) 0 % (0-3) 0 % (0-3) Neutrophils # (Auto) 9.6 x10^3/uL (1.8-7.7) 8.4 x10^3/uL (1.8-7.7) Lymphocytes # (Auto) 0.8 x10^3/uL (1.0-4.8) 2.3 x10^3/uL (1.0-4.8) Monocytes # (Auto) 0.4 x10^3/uL (0.0-1.1) 0.9 x10^3/uL (0.0-1.1) Eosinophils # (Auto) 0.0 x10^3/uL (0.0-0.7) 0.1 x10^3/uL (0.0-0.7) Basophils # (Auto) 0.0 x10^3/uL (0.0-0.2) 0.0 x10^3/uL (0.0-0.2) Sodium Level 142 mmol/L (136-145) 140 mmol/L (136-145) Potassium Level 4.5 mmol/L (3.5-5.1) 4.1 mmol/L (3.5-5.1) Chloride Level 105 mmol/L (98-107) 107 mmol/L (98-107) Carbon Dioxide Level 29 mmol/L (21-32) 29 mmol/L (21-32) Anion Gap 8 (6-14) 4 (6-14) Blood Urea Nitrogen 21 mg/dL (7-20) 22 mg/dL (7-20) Creatinine 0.7 mg/dL (0.6-1.0) 0.7 mg/dL (0.6-1.0) Estimated GFR (Cockcroft-Gault) 83.0 83.0 Glucose Level 106 mg/dL (70-99) 68 mg/dL (70-99) Calcium Level 7.5 mg/dL (8.5-10.1) 8.0 mg/dL (8.5-10.1) O2 Saturation 92 % (92-99) Arterial Blood pH 7.46 (7.35-7.45) Arterial Blood pCO2 at Patient Temp 31 mmHg (35-46) Arterial Blood pO2 at Patient Temp 65 mmHg (65-108) Arterial Blood HCO3 22 mmol/L (21-28) Arterial Blood Base Excess -1 mmol/L (-3-3) FiO2 60%40l Laboratory Tests Test 07/01/20 08:30 07/02/20 05:30 O2 Saturation 92 % (92-99) Arterial Blood pH 7.46 (7.35-7.45) Arterial Blood pCO2 at Patient Temp 31 mmHg (35-46) Arterial Blood pO2 at Patient Temp 65 mmHg (65-108) Arterial Blood HCO3 22 mmol/L (21-28) Arterial Blood Base Excess -1 mmol/L (-3-3) FiO2 60%40l White Blood Count 11.7 x10^3/uL (4.0-11.0) Red Blood Count 4.31 x10^6/uL (3.50-5.40) Hemoglobin 12.9 g/dL (12.0-15.5) Hematocrit 38.9 % (36.0-47.0) Mean Corpuscular Volume 90 fL (79-100) Mean Corpuscular Hemoglobin 30 pg (25-35) Mean Corpuscular Hemoglobin Concent 33 g/dL (31-37) Red Cell Distribution Width 13.9 % (11.5-14.5) Platelet Count 273 x10^3/uL (140-400) Neutrophils (%) (Auto) 72 % (31-73) Lymphocytes (%) (Auto) 19 % (24-48) Monocytes (%) (Auto) 8 % (0-9) Eosinophils (%) (Auto) 1 % (0-3) Basophils (%) (Auto) 0 % (0-3) Neutrophils # (Auto) 8.4 x10^3/uL (1.8-7.7) Lymphocytes # (Auto) 2.3 x10^3/uL (1.0-4.8) Monocytes # (Auto) 0.9 x10^3/uL (0.0-1.1) Eosinophils # (Auto) 0.1 x10^3/uL (0.0-0.7) Basophils # (Auto) 0.0 x10^3/uL (0.0-0.2) Sodium Level 140 mmol/L (136-145) Potassium Level 4.1 mmol/L (3.5-5.1) Chloride Level 107 mmol/L (98-107) Carbon Dioxide Level 29 mmol/L (21-32) Anion Gap 4 (6-14) Blood Urea Nitrogen 22 mg/dL (7-20) Creatinine 0.7 mg/dL (0.6-1.0) Estimated GFR (Cockcroft-Gault) 83.0 Glucose Level 68 mg/dL (70-99) Calcium Level 8.0 mg/dL (8.5-10.1) Comments CXR, reviewed Bilateral pneumonia, more confluent in the right upper lobe. Impression . IMPRESSION: 1. Acute hypoxic respiratory failure secondary to COVID-19 pneumonia and acute lung injury--- improving 2. No significant tobacco history. 3. Abnormal chest x-ray consistent with COVID-19 pneumonia. 4. Mildly increased liver function tests. 5. hypoxemia-- improving 6. fever ,resolved Plan . RECOMMENDATIONS: Continue present vapotherm, on 40 liters and 60% setting reviewed, titrate FiO2 to keep sat 92%. Monitor the course of treatment. solumedrol 40 bid Monitor for inflammatory markers, High dose DVT prophylaxis. S/P convalescent plasma on 06/22/2020 and remdesivir. PT/OT -- OOB as tolerated start IS Discussed with RN and RT. LUCINDA BURGOS MD Jul 02, 2020 07:00
[2020-07-02] MEDS: ZINC SULFATE 220 MG CAPSULE. PO SCH (08:31)
[2020-07-02] MEDS: methylPREDNISolone SOD SUCC PF 40 MG/ML VIAL. IV SCH (08:31)
[2020-07-02] MEDS: ENOXAPARIN 40 MG/0.4 ML SYRINGE. SQ SCH ×2 (08:31→22:37)
[2020-07-02] MEDS: MULTIVITAMIN with MINERAL TABLET. PO SCH (08:31)
[2020-07-02] MEDS: LACTOBACILLUS RHAMNOSUS GG 1 CAPSULE. PO SCH ×2 (08:31→22:36)
--- NOTE | 2020-07-02 12:28 | PDOC ---
[employer] PROGRESS NOTE Date of Service DOS: DATE: 07/02/20 TIME: 12:21 Chief Complaint Chief Complaint A/P: Acute hypoxic respiratory failuresecondary to SARSCo.2 pneumonia. Continue supportive therapy, steroids room to severe protocol initiated on 4 will continue here. Consult ID and pulmonology SARS- COV2 pneumonia -continue IV Solu-Medrol wean O2 as tolerated I discussed with pulmonology to move to a negative pressure room if her desaturations worsen and she may need BiPAP.. Will try experimental drug to severe and convalescent plasma therapies with ID and pulmonology. Hypokalemiawill replace, check magnesium level Diarrhealikely COVID-19 related. Will check for C. difficile per protocol if more than 3 bowel movements in a day Transaminitis also likely related COVID-19, will monitor Severe protein calorie malnutritionlikely related to above FEN - General diet PPX - lovenox FULL CODE Dispo - ICU for above CC time 38 minutes History of Present Illness History of Present Illness 07/02/20 Patient seen and examined in ICU Chart reviewed Discussed with RN Patient continues to improve. Today she was off the bed and sitting comfortably in a chair 91% O2 sat 07/01/20 Patient seen and examined in ICU Chart reviewed Discussed with RN Patient improving 06/30/20 Patient seen and examined in ICU Chart reviewed Discussed with RN Patient is improving 06/29/20 Patient seen and examined in ICU Chart reviewed Discussed with RN Patient was smiling and looking much better For the fist time last night she didn't require Bipap 06/28/20 Patient seen and examined in ICU Chart reviewed Discussed with RN Patient is improving No cough today Patient on Vapotherm 06/27/20 Patient seen and examined in ICU Discussed with RN Patient seems to be improving She has a bit of a cough Patient has received treatment with plasma and remdesivir 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 On 06/16/2020 she began having symptoms of diarrhea and shortness of breath and went to the ED to have COVID-19 testing, she was notified of the results on 06/17/2020 and asked to quarantine at home for 14 days. Over the course the next 5 days she became progressively more weak had fever and chills and began having myalgias and worsening diarrhea with little bit of abdominal pain. She returned to the ED on 06/21/2020 at [facility] and was found to be hypoxic. ABG on 06/21/2020 7.472/30 5.1/94.3 with HCO3 of 26.2 on nonrebreather 10 L labs on 06 21 sodium 135, K3.2, chloride 99, CO2 25, BUN 17, creatinine 1, glucose 115, lactate 1.9, calcium 8, ferritin 1491, bilirubin 0.4, AST 103, ALT 5 8, AL K phosphatase 62 troponin negative, CRP 129.6, total protein 6.3, albumin 2.7 prealbumin 9, lipase 185, B12 995, procalcitonin 0.40, TSH 1.427, d-dimer 1.16, WBC 7.1, Hb 14.1, platelets 302 chest x-ray on 06 21 read as worsening interstitial and airspace opacities in the right upper lobe and left lung base and worsening interstitial opacities in the right lung base compatible with multifocal pneumonia EKG appears normal sinus rhythm with heart rate approximately 85 bpm with normal axis some inferior T wave changes that are nonspecific no ST segment changes. 06/23: Seen in our ICU on Vapotherm. She is still complaining of weakness and diarrhea to me, 2 BM this morning. Afebrile. Still with cough today. O2 53 on Vapotherm. Remdesivir and convalescent FFP given 06/24: O2 63 on ABG this morning after BIPAP overnight. She feels a bit improved, appetite improved. No diarrhea yet today. Still weak with myalgias. 06/25:Less short of breath, on BiPAP with FiO2 70%. No chest pain or wheezing, no fevers. Still with some loose stools. LFTs normal today. WBC 10.2, Hb 12.7, platelets 4 2, NA 140 5K3.6 BUN 22, CR 0.6 ABG 7.48, 35, 69 BiPAP 70%. Febrile 1 1.2 F. Seen on BiPAP 01/05 with 50% FiO2. She is very comfortable with this. Has not had a bowel movement a day and a half. Asking a 70 bedpan right now though. Appetite is decreased. Plan: Already on Zosyn, have discussed with ID adding Zyvox would be appropriate. Vitals/I&O Vitals/I&O: Vital Signs Date Time Temp Pulse Resp B/P (MAP) Pulse Ox O2 Delivery O2 Flow Rate FiO2 07/02/20 11:00 80 17 83/47 (59) 92 vapotherm 40.0 07/02/20 08:00 97.6 97.6 I & O 07/01/20 07/01/20 07/02/20 15:00 23:00 07:00 Intake Total 200 ml 300 ml 800 ml Output Total 300 ml 200 ml 250 ml Balance -100 ml 100 ml 550 ml Physical Exam Physical Exam: GENERAL: Propped up in bed, alert, calm, on vapotherm HEENT: PERRL. Oral cavity dry NECK: Supple LUNGS: Diminished aeration, no accessory muscle use HEART: S1, S2 regular. ABDOMEN: Soft and nontender EXTREMITIES: No edema or cyanosis. SCDs bilaterally SKIN: No signs of rash. NEUROLOGIC: Alert and oriented, PIV General: Alert, Oriented X3, Cooperative, No acute distress Heart: Regular rate, Other (Rhonchi bilaterally) Abdomen: Normal bowel sounds, Soft, No tenderness, No hepatosplenomegaly, No masses Extremities: No clubbing, No cyanosis, No edema, Normal pulses, No tenderness/swelling Skin: No rashes, No breakdown, No significant lesion Labs Labs: Laboratory Tests Test 07/02/20 05:30 White Blood Count 11.7 x10^3/uL (4.0-11.0) Red Blood Count 4.31 x10^6/uL (3.50-5.40) Hemoglobin 12.9 g/dL (12.0-15.5) Hematocrit 38.9 % (36.0-47.0) Mean Corpuscular Volume 90 fL (79-100) Mean Corpuscular Hemoglobin 30 pg (25-35) Mean Corpuscular Hemoglobin Concent 33 g/dL (31-37) Red Cell Distribution Width 13.9 % (11.5-14.5) Platelet Count 273 x10^3/uL (140-400) Neutrophils (%) (Auto) 72 % (31-73) Lymphocytes (%) (Auto) 19 % (24-48) Monocytes (%) (Auto) 8 % (0-9) Eosinophils (%) (Auto) 1 % (0-3) Basophils (%) (Auto) 0 % (0-3) Neutrophils # (Auto) 8.4 x10^3/uL (1.8-7.7) Lymphocytes # (Auto) 2.3 x10^3/uL (1.0-4.8) Monocytes # (Auto) 0.9 x10^3/uL (0.0-1.1) Eosinophils # (Auto) 0.1 x10^3/uL (0.0-0.7) Basophils # (Auto) 0.0 x10^3/uL (0.0-0.2) Sodium Level 140 mmol/L (136-145) Potassium Level 4.1 mmol/L (3.5-5.1) Chloride Level 107 mmol/L (98-107) Carbon Dioxide Level 29 mmol/L (21-32) Anion Gap 4 (6-14) Blood Urea Nitrogen 22 mg/dL (7-20) Creatinine 0.7 mg/dL (0.6-1.0) Estimated GFR (Cockcroft-Gault) 83.0 Glucose Level 68 mg/dL (70-99) Calcium Level 8.0 mg/dL (8.5-10.1) Assessment and Plan Assessmemt and Plan Assessment: A/P: Acute hypoxic respiratory failuresecondary to SARSCo.2 pneumonia. Continue supportive therapy, steroids room to severe protocol initiated on 8 will continue here. Consult ID and pulmonology SARS- COV2 pneumonia -continue IV Solu-Medrol wean O2 as tolerated I discussed with pulmonology to move to a negative pressure room if her desaturations worsen and she may need BiPAP.. Will try experimental drug to severe and convalescent plasma therapies with ID and pulmonology. Hypokalemiawill replace, check magnesium level Diarrhealikely COVID-19 related. Will check for C. difficile per protocol if more than 3 bowel movements in a day Transaminitis also likely related COVID-19, will monitor Severe protein calorie malnutritionlikely related to above Plan: ICU monitoring Respiratory isolation DVT prophylaxis Continue IV steroids Vapotherm Fill her short term disability paperwork Appreciate subspecialist input Comment Review of Relevant I have reviewed the following items helen (where applicable) has been applied. Justicifation of Admission Dx: Justifications for Admission: Justification of Admission Dx: Yes Respiratory Failure: Severe Resp Distress CASTLE,NIAL K III DO Jul 02, 2020 12:28
[2020-07-02] MEDS: STERILE WATER for RESP 1,000 ML BAG. INH PRN (12:31)
--- NOTE | 2020-07-02 13:09 | PDOC ---
Infectious Disease Note Subjective: Subjective Pt continues to feel better Remains on vapotherm Denies fever, nausea, vomiting, diarrhea, abdominal pain Vital Signs: Vital Signs Vital Signs Date Time Temp Pulse Resp B/P (MAP) Pulse Ox O2 Delivery O2 Flow Rate FiO2 07/02/20 12:31 94 vapotherm 40.0 07/02/20 11:00 80 17 83/47 (59) 07/02/20 08:00 97.6 97.6 Physical Exam: PHYSICAL EXAM GENERAL: Propped up in bed, alert, calm, on vapotherm HEENT: PERRL. Oral cavity dry NECK: Supple LUNGS: Diminished aeration, no accessory muscle use HEART: S1, S2 regular. ABDOMEN: Soft and nontender EXTREMITIES: No edema or cyanosis. SCDs bilaterally SKIN: No signs of rash. NEUROLOGIC: Alert and oriented, PIV Medications: Inpatient Meds: Current Medications Medications (Trade) Dose Ordered Sig/Karin Start Time Stop Time Status Last Admin Dose Admin Acetaminophen (Tylenol) 650 mg PRN Q4HRS PRN 06/22/20 10:30 06/26/20 07:59 650 MG Benzonatate (Tessalon Perle) 200 mg Q8HRS 06/27/20 12:00 07/02/20 06:29 200 MG Enoxaparin Sodium (Lovenox 40mg Syringe) 40 mg Q12HR 06/22/20 10:30 07/02/20 08:31 40 MG Guaifenesin (Robitussin Dm) 10 ml PRN Q6HRS PRN 06/22/20 10:45 06/30/20 08:25 10 ML Lactobacillus Rhamnosus (Culturelle) 1 cap BID 06/23/20 21:00 07/02/20 08:31 1 CAP Linezolid (Zyvox) 600 mg BID 06/26/20 10:00 06/29/20 09:22 DC 06/29/20 08:19 600 MG Methylprednisolone Sodium Succinate (SOLU-Medrol 40MG VIAL) 40 mg DAILY 07/01/20 09:45 07/02/20 08:31 40 MG Multivitamins (Thera M Plus) 1 tab DAILY 06/27/20 15:00 07/02/20 08:31 1 TAB Non-Formulary Medication 1 ea/ Sodium Chloride 230 ml @ 460 mls/hr Q24H 06/22/20 13:00 06/25/20 13:29 DC 06/25/20 14:30 460 MLS/HR Ondansetron HCl (Zofran) 4 mg PRN Q4HRS PRN 06/22/20 10:30 Piperacillin Sod/ Tazobactam Sod (Zosyn Per Pharmacy) 1 each PRN DAILY PRN 06/22/20 11:00 06/29/20 09:23 DC Piperacillin Sod/ Tazobactam Sod 3.375 gm/Sodium Chloride 50 ml @ 100 mls/hr Q6HRS 06/22/20 12:00 06/29/20 09:22 DC 06/29/20 06:04 100 MLS/HR Potassium Chloride/Water 100 ml @ 100 mls/hr Q1H 06/26/20 10:00 06/26/20 11:59 DC 06/26/20 10:54 100 MLS/HR Sterile Water (WATER for RESP) 1,000 ml CONT PRN 06/22/20 16:15 07/02/20 12:31 1,000 ML Zinc Sulfate (Orazinc) 220 mg DAILY 06/22/20 11:00 07/02/20 08:31 220 MG Zolpidem Tartrate (Ambien) 5 mg PRN QHS PRN 06/22/20 10:30 Labs: Lab Laboratory Tests Test 07/02/20 05:30 White Blood Count 11.7 x10^3/uL (4.0-11.0) Red Blood Count 4.31 x10^6/uL (3.50-5.40) Hemoglobin 12.9 g/dL (12.0-15.5) Hematocrit 38.9 % (36.0-47.0) Mean Corpuscular Volume 90 fL (79-100) Mean Corpuscular Hemoglobin 30 pg (25-35) Mean Corpuscular Hemoglobin Concent 33 g/dL (31-37) Red Cell Distribution Width 13.9 % (11.5-14.5) Platelet Count 273 x10^3/uL (140-400) Neutrophils (%) (Auto) 72 % (31-73) Lymphocytes (%) (Auto) 19 % (24-48) Monocytes (%) (Auto) 8 % (0-9) Eosinophils (%) (Auto) 1 % (0-3) Basophils (%) (Auto) 0 % (0-3) Neutrophils # (Auto) 8.4 x10^3/uL (1.8-7.7) Lymphocytes # (Auto) 2.3 x10^3/uL (1.0-4.8) Monocytes # (Auto) 0.9 x10^3/uL (0.0-1.1) Eosinophils # (Auto) 0.1 x10^3/uL (0.0-0.7) Basophils # (Auto) 0.0 x10^3/uL (0.0-0.2) Sodium Level 140 mmol/L (136-145) Potassium Level 4.1 mmol/L (3.5-5.1) Chloride Level 107 mmol/L (98-107) Carbon Dioxide Level 29 mmol/L (21-32) Anion Gap 4 (6-14) Blood Urea Nitrogen 22 mg/dL (7-20) Creatinine 0.7 mg/dL (0.6-1.0) Estimated GFR (Cockcroft-Gault) 83.0 Glucose Level 68 mg/dL (70-99) Calcium Level 8.0 mg/dL (8.5-10.1) Objective: Assessment: Fever resolved Leukocytosis, on steroids COVID-19 positive. s/p convalescent plasma and Remdesivir. Bilateral pulmonary infiltrate. Hypoxemia. On BiPAP Obesity. UC yeast Plan: Plan of Care cont supportive care monitor off antibiotics Steroids Convalescent plasma and Remdesivir given Probiotics Maintain aspiration precautions d/w GOLD COHEN MD Jul 02, 2020 13:09
[2020-07-03] VITALS (14 sets, daily range): BP systolic 83–109; BP diastolic 44–63
[2020-07-03] MEDS: BENZONATATE 100 MG CAPSULE. PO SCH ×3 (06:22→20:43)
[2020-07-03] MEDS: MULTIVITAMIN with MINERAL TABLET. PO SCH (08:15)
[2020-07-03] MEDS: LACTOBACILLUS RHAMNOSUS GG 1 CAPSULE. PO SCH ×2 (08:15→20:43)
[2020-07-03] MEDS: ZINC SULFATE 220 MG CAPSULE. PO SCH (08:16)
[2020-07-03] MEDS: ENOXAPARIN 40 MG/0.4 ML SYRINGE. SQ SCH ×2 (08:16→20:43)
[2020-07-03] MEDS: methylPREDNISolone SOD SUCC PF 40 MG/ML VIAL. IV SCH (08:16)
--- NOTE | 2020-07-03 08:36 | PDOC ---
Infectious Disease Note Subjective Subjective Says feeling better everyday + SOA with activity. Less cough Remains on vapotherm, 35L/55% Mouth is dry Denies fever, nausea, vomiting, diarrhea, abdominal pain, dysuria ROS ROS as mentioned above Vital Sign Vital Signs Vital Signs Date Time Temp Pulse Resp B/P (MAP) Pulse Ox O2 Delivery O2 Flow Rate FiO2 07/03/20 07:21 65 vapotherm 35.0 07/03/20 06:00 66 16 96/63 (74) 07/03/20 04:00 98.7 98.7 Physical Exam PHYSICAL EXAM GENERAL: Propped up in bed, alert, calm, on vapotherm HEENT: PERRL. Oral cavity dry, + thrush NECK: Supple LUNGS: Diminished aeration, no accessory muscle use HEART: S1, S2 regular. ABDOMEN: Soft and nontender EXTREMITIES: No edema or cyanosis. SKIN: No signs of rash. NEUROLOGIC: Alert and oriented x 3 PIV looks ok Labs Micro 06/26/20 Blood Culture - Final, Complete NO GROWTH AFTER 5 DAYS 06/26 URINE CULTURE Final Final 50,000 CFU/ML YEAST on 06/28/20 at 1638 FINAL ID= [FELICITAS ALBICANS] Objective Assessment Fever resolved Leukocytosis, on steroids COVID-19 positive. s/p convalescent plasma and Remdesivir. Bilateral pulmonary infiltrate. Hypoxemia. On BiPAP Obesity. UC yeast - CALBS Thrush Plan Plan of Care Add nystatin SWSW f/u am labs/cxr Monitor off antibiotics Steroids per primary Convalescent plasma and Remdesivir given Probiotics Maintain aspiration precautions Airborne isolation for COVID-19 The patient was seen and examined at the bedside. The chart was reviewed. The case was discussed. Agree with the plan of care. LISSETTE POOL APRN Jul 03, 2020 08:36 GOLD OHARA MD Jul 03, 2020 14:06
[2020-07-03 10:00] LABS: BASO % 0 % (0-3); EOS # 0.1 x10^3/uL (0.0-0.7); EOS % 1 % (0-3); HEMATOCRIT 43.7 % (36.0-47.0); HEMOGLOBIN 14.3 g/dL (12.0-15.5); LYMPH # 1.7 x10^3/uL (1.0-4.8); LYMPH % 13 % (24-48); MEAN CORPUSCULAR HEMOGLOBIN 30 pg (25-35); MEAN CORPUSCULAR HGB CONC 33 g/dL (31-37); MEAN CORPUSCULAR VOLUME 91 fL (79-100); MONO % 8 % (0-9); NEUT # 10.4 x10^3/uL (1.8-7.7); NEUT % 79 % (31-73); PLATELET COUNT 263 x10^3/uL (140-400); RED CELL DISTRIBUTION WIDTH 13.8 % (11.5-14.5); WHITE BLOOD COUNT 13.3 x10^3/uL (4.0-11.0)
[2020-07-03 10:08] LABS: CALCIUM 8.6 mg/dL (8.5-10.1); CREATININE 0.6 mg/dL (0.6-1.0); GFR 99.1; POTASSIUM 3.7 mmol/L (3.5-5.1)
--- NOTE | 2020-07-03 11:07 | PDOC ---
PULMONARY PROGRESS NOTES DATE: 07/03/20 TIME: 11:06 Subjective on nc 6 lpm feels better, sob better, has occ cough, no pain Vitals Vital Signs Date Time Temp Pulse Resp B/P (MAP) Pulse Ox O2 Delivery O2 Flow Rate FiO2 07/03/20 09:00 78 22 100/54 (69) 96 vapotherm 35.0 07/03/20 08:00 98.0 98.0 Comments on nc 6 lpm appears comfortable alert no paradoxical abd motion no audible wheezing no accessory muscle use alert RRR, no edema No rash ROS: No Nausea, No Chest Pain, No Abdominal Pain, No Increase Cough Labs Laboratory Tests Test 07/02/20 05:30 07/03/20 09:45 White Blood Count 11.7 x10^3/uL (4.0-11.0) 13.3 x10^3/uL (4.0-11.0) Red Blood Count 4.31 x10^6/uL (3.50-5.40) 4.80 x10^6/uL (3.50-5.40) Hemoglobin 12.9 g/dL (12.0-15.5) 14.3 g/dL (12.0-15.5) Hematocrit 38.9 % (36.0-47.0) 43.7 % (36.0-47.0) Mean Corpuscular Volume 90 fL (79-100) 91 fL (79-100) Mean Corpuscular Hemoglobin 30 pg (25-35) 30 pg (25-35) Mean Corpuscular Hemoglobin Concent 33 g/dL (31-37) 33 g/dL (31-37) Red Cell Distribution Width 13.9 % (11.5-14.5) 13.8 % (11.5-14.5) Platelet Count 273 x10^3/uL (140-400) 263 x10^3/uL (140-400) Neutrophils (%) (Auto) 72 % (31-73) 79 % (31-73) Lymphocytes (%) (Auto) 19 % (24-48) 13 % (24-48) Monocytes (%) (Auto) 8 % (0-9) 8 % (0-9) Eosinophils (%) (Auto) 1 % (0-3) 1 % (0-3) Basophils (%) (Auto) 0 % (0-3) 0 % (0-3) Neutrophils # (Auto) 8.4 x10^3/uL (1.8-7.7) 10.4 x10^3/uL (1.8-7.7) Lymphocytes # (Auto) 2.3 x10^3/uL (1.0-4.8) 1.7 x10^3/uL (1.0-4.8) Monocytes # (Auto) 0.9 x10^3/uL (0.0-1.1) 1.0 x10^3/uL (0.0-1.1) Eosinophils # (Auto) 0.1 x10^3/uL (0.0-0.7) 0.1 x10^3/uL (0.0-0.7) Basophils # (Auto) 0.0 x10^3/uL (0.0-0.2) 0.0 x10^3/uL (0.0-0.2) Sodium Level 140 mmol/L (136-145) 139 mmol/L (136-145) Potassium Level 4.1 mmol/L (3.5-5.1) 3.7 mmol/L (3.5-5.1) Chloride Level 107 mmol/L (98-107) 105 mmol/L (98-107) Carbon Dioxide Level 29 mmol/L (21-32) 29 mmol/L (21-32) Anion Gap 4 (6-14) 5 (6-14) Blood Urea Nitrogen 22 mg/dL (7-20) 18 mg/dL (7-20) Creatinine 0.7 mg/dL (0.6-1.0) 0.6 mg/dL (0.6-1.0) Estimated GFR (Cockcroft-Gault) 83.0 99.1 Glucose Level 68 mg/dL (70-99) 107 mg/dL (70-99) Calcium Level 8.0 mg/dL (8.5-10.1) 8.6 mg/dL (8.5-10.1) Laboratory Tests Test 07/03/20 09:45 White Blood Count 13.3 x10^3/uL (4.0-11.0) Red Blood Count 4.80 x10^6/uL (3.50-5.40) Hemoglobin 14.3 g/dL (12.0-15.5) Hematocrit 43.7 % (36.0-47.0) Mean Corpuscular Volume 91 fL (79-100) Mean Corpuscular Hemoglobin 30 pg (25-35) Mean Corpuscular Hemoglobin Concent 33 g/dL (31-37) Red Cell Distribution Width 13.8 % (11.5-14.5) Platelet Count 263 x10^3/uL (140-400) Neutrophils (%) (Auto) 79 % (31-73) Lymphocytes (%) (Auto) 13 % (24-48) Monocytes (%) (Auto) 8 % (0-9) Eosinophils (%) (Auto) 1 % (0-3) Basophils (%) (Auto) 0 % (0-3) Neutrophils # (Auto) 10.4 x10^3/uL (1.8-7.7) Lymphocytes # (Auto) 1.7 x10^3/uL (1.0-4.8) Monocytes # (Auto) 1.0 x10^3/uL (0.0-1.1) Eosinophils # (Auto) 0.1 x10^3/uL (0.0-0.7) Basophils # (Auto) 0.0 x10^3/uL (0.0-0.2) Sodium Level 139 mmol/L (136-145) Potassium Level 3.7 mmol/L (3.5-5.1) Chloride Level 105 mmol/L (98-107) Carbon Dioxide Level 29 mmol/L (21-32) Anion Gap 5 (6-14) Blood Urea Nitrogen 18 mg/dL (7-20) Creatinine 0.6 mg/dL (0.6-1.0) Estimated GFR (Cockcroft-Gault) 99.1 Glucose Level 107 mg/dL (70-99) Calcium Level 8.6 mg/dL (8.5-10.1) Comments CXR, reviewed Bilateral pneumonia, more confluent in the right upper lobe. Impression . IMPRESSION: 1. Acute hypoxic respiratory failure secondary to COVID-19 pneumonia and acute lung injury--- improving 2. No significant tobacco history. 3. Abnormal chest x-ray consistent with COVID-19 pneumonia. 4. Mildly increased liver function tests. 5. hypoxemia-- improving 6. fever ,resolved Plan . RECOMMENDATIONS: titrate FiO2 to keep sat 92%. Monitor the course of treatment. cont solumedrol Monitor for inflammatory markers, High dose DVT prophylaxis. S/P convalescent plasma on 06/22/2020 and remdesivir. PT/OT -- OOB as tolerated IS ?out of icu Discussed with RN and RT. LUCINDA BURGOS MD Jul 03, 2020 11:07
--- NOTE | 2020-07-03 11:57 | PDOC ---
[employer] PROGRESS NOTE Date of Service DOS: DATE: 07/03/20 TIME: 11:49 Chief Complaint Chief Complaint Acute hypoxic respiratory failure SARS- COV2 pneumonia Hypokalemia Diarrhea Transaminitis Severe protein calorie malnutrition History of Present Illness History of Present Illness 07/03/2020 Patient seen and examined in the ICU Patient markedly improved Sitting comfortably in chair Off vapotherm, O2 sat 99% on nasal canula Chart reviewed Discussed with RN 07/02/20 Patient seen and examined in ICU Chart reviewed Discussed with RN Patient continues to improve. Today she was off the bed and sitting comfortably in a chair 91% O2 sat 07/01/20 Patient seen and examined in ICU Chart reviewed Discussed with RN Patient improving 06/30/20 Patient seen and examined in ICU Chart reviewed Discussed with RN Patient is improving 06/29/20 Patient seen and examined in ICU Chart reviewed Discussed with RN Patient was smiling and looking much better For the fist time last night she didn't require Bipap 06/28/20 Patient seen and examined in ICU Chart reviewed Discussed with RN Patient is improving No cough today Patient on Vapotherm 06/27/20 Patient seen and examined in ICU Discussed with RN Patient seems to be improving She has a bit of a cough Patient has received treatment with plasma and remdesivir 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 On 06/16/2020 she began having symptoms of diarrhea and shortness of breath and went to the ED to have COVID-19 testing, she was notified of the results on 06/17/2020 and asked to quarantine at home for 14 days. Over the course the next 5 days she became progressively more weak had fever and chills and began having myalgias and worsening diarrhea with little bit of abdominal pain. She returned to the ED on 06/21/2020 at [facility] and was found to be hypoxic. ABG on 06/21/2020 7.472/30 5.1/94.3 with HCO3 of 26.2 on nonrebreather 10 L labs on 4 sodium 135, K3.2, chloride 99, CO2 25, BUN 17, creatinine 1, glucose 115, lactate 1.9, calcium 8, ferritin 1491, bilirubin 0.4, AST 103, ALT 5 8, AL K phosphatase 62 troponin negative, CRP 129.6, total protein 6.3, albumin 2.7 prealbumin 9, lipase 185, B12 995, procalcitonin 0.40, TSH 1.427, d-dimer 1.16, WBC 7.1, Hb 14.1, platelets 302 chest x-ray on 06 21 read as worsening interstitial and airspace opacities in the right upper lobe and left lung base and worsening interstitial opacities in the right lung base compatible with multifocal pneumonia EKG appears normal sinus rhythm with heart rate approximately 85 bpm with normal axis some inferior T wave changes that are nonspecific no ST segment changes. 06/23: Seen in our ICU on Vapotherm. She is still complaining of weakness and diarrhea to me, 2 BM this morning. Afebrile. Still with cough today. O2 53 on Vapotherm. Remdesivir and convalescent FFP given 06/24: O2 63 on ABG this morning after BIPAP overnight. She feels a bit improved, appetite improved. No diarrhea yet today. Still weak with myalgias. 06/25:Less short of breath, on BiPAP with FiO2 70%. No chest pain or wheezing, no fevers. Still with some loose stools. LFTs normal today. WBC 10.2, Hb 12.7, platelets 4 2, NA 140 5K3.6 BUN 22, CR 0.6 ABG 7.48, 35, 69 BiPAP 70%. Febrile 1 1.2 F. Seen on BiPAP 01/05 with 50% FiO2. She is very comfortable with this. Has not had a bowel movement a day and a half. Asking a 70 bedpan right now though. Appetite is decreased. Plan: Already on Zosyn, have discussed with ID adding Zyvox would be appropriate. Vitals/I&O Vitals/I&O: Vital Signs Date Time Temp Pulse Resp B/P (MAP) Pulse Ox O2 Delivery O2 Flow Rate FiO2 07/03/20 10:00 81 18 92/51 (65) 95 High Flow Nasal Cannula 6.0 07/03/20 08:00 98.0 98.0 I & O 07/02/20 07/02/20 07/03/20 15:00 23:00 07:00 Intake Total 600 ml Output Total 500 ml 600 ml Balance 600 ml -500 ml -600 ml Physical Exam Physical Exam: GENERAL: Propped up in bed, alert, calm, on vapotherm HEENT: PERRL. Oral cavity dry, + thrush NECK: Supple LUNGS: Diminished aeration, no accessory muscle use HEART: S1, S2 regular. ABDOMEN: Soft and nontender EXTREMITIES: No edema or cyanosis. SKIN: No signs of rash. NEUROLOGIC: Alert and oriented x 3 PIV looks ok General: Alert, Oriented X3, Cooperative, No acute distress Heart: Regular rate Lungs: Clear Abdomen: Normal bowel sounds, Soft, No tenderness, No hepatosplenomegaly, No masses Extremities: No clubbing, No cyanosis, No edema, Normal pulses, No tenderness/swelling Skin: No rashes, No breakdown, No significant lesion Labs Labs: Laboratory Tests Test 07/03/20 09:45 White Blood Count 13.3 x10^3/uL (4.0-11.0) Red Blood Count 4.80 x10^6/uL (3.50-5.40) Hemoglobin 14.3 g/dL (12.0-15.5) Hematocrit 43.7 % (36.0-47.0) Mean Corpuscular Volume 91 fL (79-100) Mean Corpuscular Hemoglobin 30 pg (25-35) Mean Corpuscular Hemoglobin Concent 33 g/dL (31-37) Red Cell Distribution Width 13.8 % (11.5-14.5) Platelet Count 263 x10^3/uL (140-400) Neutrophils (%) (Auto) 79 % (31-73) Lymphocytes (%) (Auto) 13 % (24-48) Monocytes (%) (Auto) 8 % (0-9) Eosinophils (%) (Auto) 1 % (0-3) Basophils (%) (Auto) 0 % (0-3) Neutrophils # (Auto) 10.4 x10^3/uL (1.8-7.7) Lymphocytes # (Auto) 1.7 x10^3/uL (1.0-4.8) Monocytes # (Auto) 1.0 x10^3/uL (0.0-1.1) Eosinophils # (Auto) 0.1 x10^3/uL (0.0-0.7) Basophils # (Auto) 0.0 x10^3/uL (0.0-0.2) Sodium Level 139 mmol/L (136-145) Potassium Level 3.7 mmol/L (3.5-5.1) Chloride Level 105 mmol/L (98-107) Carbon Dioxide Level 29 mmol/L (21-32) Anion Gap 5 (6-14) Blood Urea Nitrogen 18 mg/dL (7-20) Creatinine 0.6 mg/dL (0.6-1.0) Estimated GFR (Cockcroft-Gault) 99.1 Glucose Level 107 mg/dL (70-99) Calcium Level 8.6 mg/dL (8.5-10.1) Review of Systems Review of Systems: Pertinent as per HPI, otherwise 10 point review of systems is negative. Assessment and Plan Assessmemt and Plan ASSESSMENT Acute hypoxic respiratory failure SARS- COV2 pneumonia Hypokalemia Diarrhea Transaminitis Severe protein calorie malnutrition PLAN Cardiac monitoring Supplemental oxygen Continue nystatin per ID IV steroids Trend labs DVT prophylaxis Full code Transfer out of ICU Comment Review of Relevant I have reviewed the following items helen (where applicable) has been applied. Justicifation of Admission Dx: Justifications for Admission: Justification of Admission Dx: Yes Respiratory Failure: Severe Resp Distress BENJIE NIELSEN III DO Jul 03, 2020 11:57
[2020-07-03] MEDS: NYSTATIN 100,000 UNITS/ML 5 ML ORAL.SUSP. SWSW SCH ×3 (12:17→20:43)
--- NOTE | 2020-07-03 18:30 | NUR ---
pt transferred from ICU to room 670. Received report from CHANDNI Cadet. Pt transported via wheelchair. All belongings left with patient at the time of transfer.
[2020-07-04 04:00] VITALS: BP 95/59
[2020-07-04] MEDS: BENZONATATE 100 MG CAPSULE. PO SCH ×3 (06:21→21:23)
[2020-07-04 07:14] VITALS: BP 101/55
[2020-07-04 08:36] LABS: CALCIUM 7.8 mg/dL (8.5-10.1); CREATININE 0.6 mg/dL (0.6-1.0); GFR 99.1; POTASSIUM 3.8 mmol/L (3.5-5.1)
[2020-07-04 08:40] LABS: BASO % 0 % (0-3); EOS # 0.1 x10^3/uL (0.0-0.7); EOS % 1 % (0-3); HEMATOCRIT 40.5 % (36.0-47.0); HEMOGLOBIN 13.3 g/dL (12.0-15.5); LYMPH # 2.1 x10^3/uL (1.0-4.8); LYMPH % 22 % (24-48); MEAN CORPUSCULAR HEMOGLOBIN 30 pg (25-35); MEAN CORPUSCULAR HGB CONC 33 g/dL (31-37); MEAN CORPUSCULAR VOLUME 91 fL (79-100); MONO # 0.9 x10^3/uL (0.0-1.1); MONO % 10 % (0-9); NEUT # 6.6 x10^3/uL (1.8-7.7); NEUT % 68 % (31-73); PLATELET COUNT 235 x10^3/uL (140-400); RED BLOOD COUNT 4.44 x10^6/uL (3.50-5.40); RED CELL DISTRIBUTION WIDTH 13.9 % (11.5-14.5); WHITE BLOOD COUNT 9.7 x10^3/uL (4.0-11.0)
[2020-07-04] MEDS: MULTIVITAMIN with MINERAL TABLET. PO SCH (08:42)
[2020-07-04] MEDS: NYSTATIN 100,000 UNITS/ML 5 ML ORAL.SUSP. SWSW SCH ×4 (08:42→21:23)
[2020-07-04] MEDS: LACTOBACILLUS RHAMNOSUS GG 1 CAPSULE. PO SCH ×2 (08:42→21:23)
[2020-07-04] MEDS: ZINC SULFATE 220 MG CAPSULE. PO SCH (08:42)
[2020-07-04] MEDS: methylPREDNISolone SOD SUCC PF 40 MG/ML VIAL. IV SCH (08:42)
[2020-07-04] MEDS: ENOXAPARIN 40 MG/0.4 ML SYRINGE. SQ SCH ×2 (08:43→21:23)
--- NOTE | 2020-07-04 09:53 | NUR ---
SARAH following. Spoke with RN and reviewed chart. Pt to discharge home today self-care on oral medications and . SARAH phoned and faxed clinicals to [facility], , (fax) for new setup. SW awaiting results of 6 min walk but blood gas levels were sent. SW to follow. Addendum: 07/04/20 at 1659 by JACKIE SMITH 6 min walk results obtained but RN stated pt to weak to discharge and that PT/OT have been ordered to evaluate. SW requested RN order COVID test as one will be needed if placement is needed. Pt's last COVID test was on 06/22/2020 and she tested positive. Pt will need 2 negatives to go to [facility] per Rachel. 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 Pt currently on . SARAH to follow. Addendum: 07/04/20 at 1724 by JACKIE SMITH Pt requesting referral to acute rehab per therapy recommendation. SARAH phoned and faxed referral to [facility] and completed Patient Choice of Vendor form. Addendum: 07/05/20 at 1332 by JACKIE SMITH SW following. Reviewed chart and discussed with RN. Spoke with Jennifer from [facility] and they have approved pt clinically for acute rehab. Jennifer to obtain authorization. Pt remains COVID pending and on . SARAH to continue following.
[2020-07-04 11:04] VITALS: BP 98/58
--- NOTE | 2020-07-04 11:08 | PDOC ---
Infectious Disease Note Subjective Subjective Says feeling better everyday. Had a shower + SOA with activity.- better Less cough on 3 liters Mouth is dry Denies fever, nausea, vomiting, diarrhea, abdominal pain, dysuria Vital Sign Vital Signs Vital Signs Date Time Temp Pulse Resp B/P (MAP) Pulse Ox O2 Delivery O2 Flow Rate FiO2 07/04/20 07:14 97.2 74 20 101/55 (70) 94 Nasal Cannula 3.0 97.2 Physical Exam PHYSICAL EXAM GENERAL: Propped up in bed, alert, calm, on 3 L. looks well HEENT: PERRL. Oral cavity dry, no thrush NECK: Supple LUNGS: Diminished aeration, no accessory muscle use HEART: S1, S2 regular. ABDOMEN: Soft and nontender EXTREMITIES: No edema or cyanosis. SKIN: No signs of rash. NEUROLOGIC: Alert and oriented x 3 PIV looks ok Labs Lab Laboratory Tests Test 07/04/20 07:30 White Blood Count 9.7 x10^3/uL (4.0-11.0) Red Blood Count 4.44 x10^6/uL (3.50-5.40) Hemoglobin 13.3 g/dL (12.0-15.5) Hematocrit 40.5 % (36.0-47.0) Mean Corpuscular Volume 91 fL (79-100) Mean Corpuscular Hemoglobin 30 pg (25-35) Mean Corpuscular Hemoglobin Concent 33 g/dL (31-37) Red Cell Distribution Width 13.9 % (11.5-14.5) Platelet Count 235 x10^3/uL (140-400) Neutrophils (%) (Auto) 68 % (31-73) Lymphocytes (%) (Auto) 22 % (24-48) Monocytes (%) (Auto) 10 % (0-9) Eosinophils (%) (Auto) 1 % (0-3) Basophils (%) (Auto) 0 % (0-3) Neutrophils # (Auto) 6.6 x10^3/uL (1.8-7.7) Lymphocytes # (Auto) 2.1 x10^3/uL (1.0-4.8) Monocytes # (Auto) 0.9 x10^3/uL (0.0-1.1) Eosinophils # (Auto) 0.1 x10^3/uL (0.0-0.7) Basophils # (Auto) 0.0 x10^3/uL (0.0-0.2) Sodium Level 142 mmol/L (136-145) Potassium Level 3.8 mmol/L (3.5-5.1) Chloride Level 107 mmol/L (98-107) Carbon Dioxide Level 30 mmol/L (21-32) Anion Gap 5 (6-14) Blood Urea Nitrogen 17 mg/dL (7-20) Creatinine 0.6 mg/dL (0.6-1.0) Estimated GFR (Cockcroft-Gault) 99.1 Glucose Level 61 mg/dL (70-99) Calcium Level 7.8 mg/dL (8.5-10.1) Micro Microbiology 06/26/20 Urine Culture - Final, Complete 06/26/20 Blood Culture - Final, Complete NO GROWTH AFTER 5 DAYS Objective Assessment Fever resolved Leukocytosis, on steroids COVID-19 positive. s/p convalescent plasma and Remdesivir. Bilateral pulmonary infiltrate. Hypoxemia. On BiPAP Obesity. yeast - CALBS Thrush Plan Plan of Care Contnystatin SWSW through 07/12 ID to sign off OTF GRAYSON MD Jul 04, 2020 11:08
--- NOTE | 2020-07-04 11:53 | PDOC ---
PULMONARY PROGRESS NOTES DATE: 07/04/20 TIME: 11:51 Subjective on nc 2 lpm feels better, sob better, has occ cough, no pain Vitals Vital Signs Date Time Temp Pulse Resp B/P (MAP) Pulse Ox O2 Delivery O2 Flow Rate FiO2 07/04/20 08:00 Nasal Cannula 3.0 07/04/20 07:14 97.2 74 20 101/55 (70) 94 97.2 Comments on nc 6 lpm appears comfortable alert no paradoxical abd motion no audible wheezing no accessory muscle use alert RRR, no edema No rash ROS: No Nausea, No Chest Pain, No Abdominal Pain, No Increase Cough Lungs: Clear Labs Laboratory Tests Test 07/03/20 09:45 07/04/20 07:30 White Blood Count 13.3 x10^3/uL (4.0-11.0) 9.7 x10^3/uL (4.0-11.0) Red Blood Count 4.80 x10^6/uL (3.50-5.40) 4.44 x10^6/uL (3.50-5.40) Hemoglobin 14.3 g/dL (12.0-15.5) 13.3 g/dL (12.0-15.5) Hematocrit 43.7 % (36.0-47.0) 40.5 % (36.0-47.0) Mean Corpuscular Volume 91 fL (79-100) 91 fL (79-100) Mean Corpuscular Hemoglobin 30 pg (25-35) 30 pg (25-35) Mean Corpuscular Hemoglobin Concent 33 g/dL (31-37) 33 g/dL (31-37) Red Cell Distribution Width 13.8 % (11.5-14.5) 13.9 % (11.5-14.5) Platelet Count 263 x10^3/uL (140-400) 235 x10^3/uL (140-400) Neutrophils (%) (Auto) 79 % (31-73) 68 % (31-73) Lymphocytes (%) (Auto) 13 % (24-48) 22 % (24-48) Monocytes (%) (Auto) 8 % (0-9) 10 % (0-9) Eosinophils (%) (Auto) 1 % (0-3) 1 % (0-3) Basophils (%) (Auto) 0 % (0-3) 0 % (0-3) Neutrophils # (Auto) 10.4 x10^3/uL (1.8-7.7) 6.6 x10^3/uL (1.8-7.7) Lymphocytes # (Auto) 1.7 x10^3/uL (1.0-4.8) 2.1 x10^3/uL (1.0-4.8) Monocytes # (Auto) 1.0 x10^3/uL (0.0-1.1) 0.9 x10^3/uL (0.0-1.1) Eosinophils # (Auto) 0.1 x10^3/uL (0.0-0.7) 0.1 x10^3/uL (0.0-0.7) Basophils # (Auto) 0.0 x10^3/uL (0.0-0.2) 0.0 x10^3/uL (0.0-0.2) Sodium Level 139 mmol/L (136-145) 142 mmol/L (136-145) Potassium Level 3.7 mmol/L (3.5-5.1) 3.8 mmol/L (3.5-5.1) Chloride Level 105 mmol/L (98-107) 107 mmol/L (98-107) Carbon Dioxide Level 29 mmol/L (21-32) 30 mmol/L (21-32) Anion Gap 5 (6-14) 5 (6-14) Blood Urea Nitrogen 18 mg/dL (7-20) 17 mg/dL (7-20) Creatinine 0.6 mg/dL (0.6-1.0) 0.6 mg/dL (0.6-1.0) Estimated GFR (Cockcroft-Gault) 99.1 99.1 Glucose Level 107 mg/dL (70-99) 61 mg/dL (70-99) Calcium Level 8.6 mg/dL (8.5-10.1) 7.8 mg/dL (8.5-10.1) Laboratory Tests Test 07/04/20 07:30 White Blood Count 9.7 x10^3/uL (4.0-11.0) Red Blood Count 4.44 x10^6/uL (3.50-5.40) Hemoglobin 13.3 g/dL (12.0-15.5) Hematocrit 40.5 % (36.0-47.0) Mean Corpuscular Volume 91 fL (79-100) Mean Corpuscular Hemoglobin 30 pg (25-35) Mean Corpuscular Hemoglobin Concent 33 g/dL (31-37) Red Cell Distribution Width 13.9 % (11.5-14.5) Platelet Count 235 x10^3/uL (140-400) Neutrophils (%) (Auto) 68 % (31-73) Lymphocytes (%) (Auto) 22 % (24-48) Monocytes (%) (Auto) 10 % (0-9) Eosinophils (%) (Auto) 1 % (0-3) Basophils (%) (Auto) 0 % (0-3) Neutrophils # (Auto) 6.6 x10^3/uL (1.8-7.7) Lymphocytes # (Auto) 2.1 x10^3/uL (1.0-4.8) Monocytes # (Auto) 0.9 x10^3/uL (0.0-1.1) Eosinophils # (Auto) 0.1 x10^3/uL (0.0-0.7) Basophils # (Auto) 0.0 x10^3/uL (0.0-0.2) Sodium Level 142 mmol/L (136-145) Potassium Level 3.8 mmol/L (3.5-5.1) Chloride Level 107 mmol/L (98-107) Carbon Dioxide Level 30 mmol/L (21-32) Anion Gap 5 (6-14) Blood Urea Nitrogen 17 mg/dL (7-20) Creatinine 0.6 mg/dL (0.6-1.0) Estimated GFR (Cockcroft-Gault) 99.1 Glucose Level 61 mg/dL (70-99) Calcium Level 7.8 mg/dL (8.5-10.1) Comments CXR, reviewed Bilateral pneumonia, more confluent in the right upper lobe. Impression . IMPRESSION: 1. Acute hypoxic respiratory failure secondary to COVID-19 pneumonia and acute lung injury--- improving 2. No significant tobacco history. 3. Abnormal chest x-ray consistent with COVID-19 pneumonia. 4. Mildly increased liver function tests. 5. hypoxemia-- improving 6. fever ,resolved Plan . titrate FiO2 to keep sat 92%. Monitor the course of treatment. dc solumedrol . change to PO steroid taper Monitor for inflammatory markers, High dose DVT prophylaxis. S/P convalescent plasma on 06/22/2020 and remdesivir. PT/OT -- OOB as tolerated IS 6 min walk ok with dc home Discussed with STEPHEN MÁRQUEZ MD Jul 04, 2020 11:53
[2020-07-04] MEDS: predniSONE 10 MG TABLET PO SCH (12:47)
--- NOTE | 2020-07-04 13:03 | PDOC ---
[employer] PROGRESS NOTE Date of Service DOS: DATE: 07/04/20 TIME: 13:02 Chief Complaint Chief Complaint Acute hypoxic respiratory failure SARS- COV2 pneumonia Hypokalemia Diarrhea Transaminitis Severe protein calorie malnutrition History of Present Illness History of Present Illness Seen on [facility] telemetry unit after transfer from ICU. On 3L NCO2. CXR reviewed with bilateraly multifocal infiltrates, improved from prior, but still present. She is very weak, able to walk 6 steps before tiring out, desaturated to require 4L NCO2 with minimal movement. Afebrile. Plan: Cont inpatient, likely d/c in next 24-48 hours, acute rehab or SNF may be more appropriate given that she lives alone and is deconditioned from her prolonged ICU stay. 07/03/2020 Patient seen and examined in the ICU Patient markedly improved Sitting comfortably in chair Off vapotherm, O2 sat 99% on nasal canula Chart reviewed Discussed with RN 07/02/20 Patient seen and examined in ICU Chart reviewed Discussed with RN Patient continues to improve. Today she was off the bed and sitting comfortably in a chair 91% O2 sat 07/01/20 Patient seen and examined in ICU Chart reviewed Discussed with RN Patient improving 06/30/20 Patient seen and examined in ICU Chart reviewed Discussed with RN Patient is improving 06/29/20 Patient seen and examined in ICU Chart reviewed Discussed with RN Patient was smiling and looking much better For the fist time last night she didn't require Bipap 06/28/20 Patient seen and examined in ICU Chart reviewed Discussed with RN Patient is improving No cough today Patient on Vapotherm 06/27/20 Patient seen and examined in ICU Discussed with RN Patient seems to be improving She has a bit of a cough Patient has received treatment with plasma and remdesivir Ms. 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 On 06/16/2020 she began having symptoms of diarrhea and shortness of breath and went to the ED to have COVID-19 testing, she was notified of the results on 06/17/2020 and asked to quarantine at home for 14 days. Over the course the next 5 days she became progressively more weak had fever and chills and began having myalgias and worsening diarrhea with little bit of abdominal pain. She returned to the ED on 06/21/2020 at [facility] [employer] and was found to be hypoxic. ABG on 06/21/2020 7.472/30 5.1/94.3 with HCO3 of 26.2 on nonrebreather 10 L labs on 06 21 sodium 135, K3.2, chloride 99, CO2 25, BUN 17, creatinine 1, glucose 115, lactate 1.9, calcium 8, ferritin 1491, bilirubin 0.4, AST 103, ALT 5 8, AL K phosphatase 62 troponin negative, CRP 129.6, total protein 6.3, albumin 2.7 prealbumin 9, lipase 185, B12 995, procalcitonin 0.40, TSH 1.427, d-dimer 1.16, WBC 7.1, Hb 14.1, platelets 302 chest x-ray on 06 21 read as worsening inter stitial and airspace opacities in the right upper lobe and left lung base and worsening interstitial opacities in the right lung base compatible with multifocal pneumonia EKG appears normal sinus rhythm with heart rate approximately 85 bpm with normal axis some inferior T wave changes that are nonspecific no ST segment changes. 06/23: Seen in our ICU on Vapotherm. She is still complaining of weakness and diarrhea to me, 2 BM this morning. Afebrile. Still with cough today. O2 53 on Vapotherm. Remdesivir and convalescent FFP given 06/24: O2 63 on ABG this morning after BIPAP overnight. She feels a bit improved, appetite improved. No diarrhea yet today. Still weak with myalgias. 06/25:Less short of breath, on BiPAP with FiO2 70%. No chest pain or wheezing, no fevers. Still with some loose stools. LFTs normal today. WBC 10.2, Hb 12.7, platelets 4 2, NA 140 5K3.6 BUN 22, CR 0.6 ABG 7.48, 35, 69 BiPAP 70%. 06/26: Febrile 101.2 F. Seen on BiPAP 01/05 with 50% FiO2. She is very comfortable with this. Has not had a bowel movement a day and a half. Asking a 70 bedpan right now though. Appetite is decreased. Vitals/I&O Vitals/I&O: Vital Signs Date Time Temp Pulse Resp B/P (MAP) Pulse Ox O2 Delivery O2 Flow Rate FiO2 07/04/20 11:04 97.5 85 29 98/58 (71) 90 Nasal Cannula 3.0 97.5 I & O 07/03/20 07/03/20 07/04/20 15:00 23:00 07:00 Intake Total 960 ml 360 ml 400 ml Balance 960 ml 360 ml 400 ml Physical Exam Physical Exam: GENERAL: Propped up in bed, alert, calm, on 3 L. looks well HEENT: PERRL. Oral cavity dry, no thrush NECK: Supple LUNGS: Diminished aeration, no accessory muscle use HEART: S1, S2 regular. ABDOMEN: Soft and nontender EXTREMITIES: No edema or cyanosis. SKIN: No signs of rash. NEUROLOGIC: Alert and oriented x 3 PIV looks ok General: Alert, Oriented X3, Cooperative, No acute distress Heart: Regular rate Lungs: Clear Abdomen: Normal bowel sounds, Soft, No tenderness, No hepatosplenomegaly, No masses Extremities: No clubbing, No cyanosis, No edema, Normal pulses, No tenderness/swelling Skin: No rashes, No breakdown, No significant lesion Labs Labs: Laboratory Tests Test 07/04/20 07:30 White Blood Count 9.7 x10^3/uL (4.0-11.0) Red Blood Count 4.44 x10^6/uL (3.50-5.40) Hemoglobin 13.3 g/dL (12.0-15.5) Hematocrit 40.5 % (36.0-47.0) Mean Corpuscular Volume 91 fL (79-100) Mean Corpuscular Hemoglobin 30 pg (25-35) Mean Corpuscular Hemoglobin Concent 33 g/dL (31-37) Red Cell Distribution Width 13.9 % (11.5-14.5) Platelet Count 235 x10^3/uL (140-400) Neutrophils (%) (Auto) 68 % (31-73) Lymphocytes (%) (Auto) 22 % (24-48) Monocytes (%) (Auto) 10 % (0-9) Eosinophils (%) (Auto) 1 % (0-3) Basophils (%) (Auto) 0 % (0-3) Neutrophils # (Auto) 6.6 x10^3/uL (1.8-7.7) Lymphocytes # (Auto) 2.1 x10^3/uL (1.0-4.8) Monocytes # (Auto) 0.9 x10^3/uL (0.0-1.1) Eosinophils # (Auto) 0.1 x10^3/uL (0.0-0.7) Basophils # (Auto) 0.0 x10^3/uL (0.0-0.2) Sodium Level 142 mmol/L (136-145) Potassium Level 3.8 mmol/L (3.5-5.1) Chloride Level 107 mmol/L (98-107) Carbon Dioxide Level 30 mmol/L (21-32) Anion Gap 5 (6-14) Blood Urea Nitrogen 17 mg/dL (7-20) Creatinine 0.6 mg/dL (0.6-1.0) Estimated GFR (Cockcroft-Gault) 99.1 Glucose Level 61 mg/dL (70-99) Calcium Level 7.8 mg/dL (8.5-10.1) Comment Review of Relevant I have reviewed the following items helen (where applicable) has been applied. Medications: Current Medications Medications (Trade) Dose Ordered Sig/Karin Route PRN Reason Start Time Stop Time Status Last Admin Dose Admin Prednisone (Prednisone) 30 mg DAILY PO 07/04/20 12:30 07/04/20 12:47 Justicifation of Admission Dx: Justifications for Admission: Justification of Admission Dx: Yes Respiratory Failure: Severe Resp Distress FRANKLYN DOMINIQUE MD Jul 04, 2020 13:03
--- NOTE | 2020-07-04 14:14 | RAD ---
EXAM: CHEST ONE VIEW. HISTORY: Hypoxia, Covid positive. COMPARISON: 06/22/2020. FINDINGS: A frontal view of the chest is obtained. Previously noted multifocal infiltrates have significantly improved. Mild residual airspace opacities are noted in the right upper lobe and laterally on the left. A background of diffuse mild interstitial opacities is also improved. There is no pneumothorax or pleural effusion. The heart is not enlarged. IMPRESSION: 1. Multifocal bilateral infiltrates have improved but not completely resolved. Electronically signed by: Sampson Barone MD (07/04/2020 2:12 PM) [id number]
[2020-07-04 15:34] VITALS: BP 102/54
--- NOTE | 2020-07-04 17:00 | NUR ---
Order placed for COVID swab. Needed verification prior to placement.
[2020-07-04] MEDS ORDERED: IV NORMAL SALINE 1000ML BAG 1,000 ML IV ONE (19:00)
[2020-07-04 20:00] VITALS: BP 121/64
[2020-07-04 23:59] VITALS: BP 102/58
[2020-07-05 04:12] LABS: BASO % 1 % (0-3); EOS % 0 % (0-3); HEMATOCRIT 38.9 % (36.0-47.0); HEMOGLOBIN 12.7 g/dL (12.0-15.5); LYMPH # 1.2 x10^3/uL (1.0-4.8); LYMPH % 15 % (24-48); MEAN CORPUSCULAR HEMOGLOBIN 30 pg (25-35); MEAN CORPUSCULAR HGB CONC 33 g/dL (31-37); MEAN CORPUSCULAR VOLUME 91 fL (79-100); MONO # 0.8 x10^3/uL (0.0-1.1); MONO % 10 % (0-9); NEUT # 6.2 x10^3/uL (1.8-7.7); NEUT % 75 % (31-73); PLATELET COUNT 215 x10^3/uL (140-400); RED BLOOD COUNT 4.27 x10^6/uL (3.50-5.40); RED CELL DISTRIBUTION WIDTH 13.8 % (11.5-14.5); WHITE BLOOD COUNT 8.3 x10^3/uL (4.0-11.0)
[2020-07-05 04:31] LABS: CALCIUM 7.9 mg/dL (8.5-10.1); CREATININE 0.7 mg/dL (0.6-1.0); POTASSIUM 4.2 mmol/L (3.5-5.1)
[2020-07-05] MEDS: BENZONATATE 100 MG CAPSULE. PO SCH ×3 (06:21→22:07)
[2020-07-05 07:14] VITALS: BP 107/62
[2020-07-05] MEDS: NYSTATIN 100,000 UNITS/ML 5 ML ORAL.SUSP. SWSW SCH ×4 (09:12→22:07)
[2020-07-05] MEDS: predniSONE 10 MG TABLET PO SCH (09:12)
[2020-07-05] MEDS: MULTIVITAMIN with MINERAL TABLET. PO SCH (09:12)
[2020-07-05] MEDS: ZINC SULFATE 220 MG CAPSULE. PO SCH (09:12)
[2020-07-05] MEDS: ENOXAPARIN 40 MG/0.4 ML SYRINGE. SQ SCH ×2 (09:12→22:09)
[2020-07-05] MEDS: LACTOBACILLUS RHAMNOSUS GG 1 CAPSULE. PO SCH ×2 (09:12→22:07)
--- NOTE | 2020-07-05 11:04 | PDOC ---
[employer] PROGRESS NOTE Date of Service DOS: DATE: 07/05/20 TIME: 11:03 Chief Complaint Chief Complaint Acute hypoxic respiratory failure SARS- COV2 pneumonia Hypokalemia Diarrhea Transaminitis Severe protein calorie malnutrition History of Present Illness History of Present Illness 07/04: Se[facility] tele[facility] unit after transfer from ICU. On 3L NCO2. CXR reviewed with bilateraly multifocal infiltrates, improved from prior, but still present. She is very weak, able to walk 6 steps before tiring out, desaturated to require 4L NCO2 with minimal movement. Afebrile. Afebrile. Feels a little stronger today. On 3 L nasal cannula oxygen. Plan: d/c in next 24-48 hours, acute rehab or SNF may be more appropriate given that she lives alone and is deconditioned from her prolonged ICU stay. 07/03/2020 Patient seen and examined in the ICU Patient markedly improved Sitting comfortably in chair Off vapotherm, O2 sat 99% on nasal canula Chart reviewed Discussed with RN 07/02/20 Patient seen and examined in ICU Chart reviewed Discussed with RN Patient continues to improve. Today she was off the bed and sitting comfortably in a chair 91% O2 sat 07/01/20 Patient seen and examined in ICU Chart reviewed Discussed with RN Patient improving 06/30/20 Patient seen and examined in ICU Chart reviewed Discussed with RN Patient is improving 06/29/20 Patient seen and examined in ICU Chart reviewed Discussed with RN Patient was smiling and looking much better For the fist time last night she didn't require Bipap 06/28/20 Patient seen and examined in ICU Chart reviewed Discussed with RN Patient is improving No cough today Patient on Vapotherm 06/27/20 Patient seen and examined in ICU Discussed with RN Patient seems to be improving She has a bit of a cough Patient has received treatment with plasma and remdesivir 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 On 06/16/2020 she began having symptoms of diarrhea and shortness of breath and went to the ED to have COVID-19 testing, she was notified of the results on 06/17/2020 and asked to quarantine at home for 14 days. Over the course the next 5 days she became progressively more weak had fever and chills and began having myalgias and worsening diarrhea with little bit of abdominal pain. She returned to the ED on 06/21/2020 at [facility] and was found to be hypoxic. ABG on 06/21/2020 7.472/30 5.1/94.3 with HCO3 of 26.2 on nonrebreather 10 L labs on 06 21 sodium 135, K3.2, chloride 99, CO2 25, BUN 17, creatinine 1, glucose 115, lactate 1.9, calcium 8, ferritin 1491, bilirubin 0.4, AST 103, ALT 5 8, AL K phosphatase 62 troponin negative, CRP 129.6, total protein 6.3, albumin 2.7 prealbumin 9, lipase 185, B12 995, procalcitonin 0.40, TSH 1.427, d-dimer 1.16, WBC 7.1, Hb 14.1, platelets 302 chest x-ray on 06 21 read as worsening interstitial and airspace opacities in the right upper lobe and left lung base and worsening interstitial opacities in the right lung base compatible with multifocal pneumonia EKG appears normal sinus rhythm with heart rate approximately 85 bpm with normal axis some inferior T wave changes that are nonspecific no ST segment changes. 06/23: Seen in our ICU on Vapotherm. She is still complaining of weakness and diarrhea to me, 2 BM this morning. Afebrile. Still with cough today. O2 53 on Vapotherm. Remdesivir and convalescent FFP given 06/24: O2 63 on ABG this morning after BIPAP overnight. She feels a bit improved, appetite improved. No diarrhea yet today. Still weak with myalgias. 06/25:Less short of breath, on BiPAP with FiO2 70%. No chest pain or wheezing, no fevers. Still with some loose stools. LFTs normal today. WBC 10.2, Hb 12.7, platelets 4 2, NA 140 5K3.6 BUN 22, CR 0.6 ABG 7.48, 35, 69 BiPAP 70%. 06/26: Febrile 101.2 F. Seen on BiPAP / with 50% FiO2. She is very comfortable with this. Has not had a bowel movement a day and a half. Asking a 70 bedpan right now though. Appetite is decreased. Vitals/I&O Vitals/I&O: Vital Signs Date Time Temp Pulse Resp B/P (MAP) Pulse Ox O2 Delivery O2 Flow Rate FiO2 07/05/20 07:14 96.1 65 14 107/62 (77) 93 Nasal Cannula 3.0 96.1 I & O 07/04/20 07/04/20 07/05/20 15:00 23:00 07:00 Intake Total 120 ml 240 ml 400 ml Balance 120 ml 240 ml 400 ml Physical Exam Physical Exam: GENERAL: Propped up in bed, alert, calm, on 3 L. looks well HEENT: PERRL. Oral cavity dry, no thrush NECK: Supple LUNGS: Diminished aeration, no accessory muscle use HEART: S1, S2 regular. ABDOMEN: Soft and nontender EXTREMITIES: No edema or cyanosis. SKIN: No signs of rash. NEUROLOGIC: Alert and oriented x 3 PIV looks ok General: Alert, Oriented X3, Cooperative, No acute distress Heart: Regular rate Lungs: Clear Abdomen: Normal bowel sounds, Soft, No tenderness, No hepatosplenomegaly, No masses Extremities: No clubbing, No cyanosis, No edema, Normal pulses, No tenderness/swelling Skin: No rashes, No breakdown, No significant lesion Labs Labs: Laboratory Tests Test 07/05/20 03:50 White Blood Count 8.3 x10^3/uL (4.0-11.0) Red Blood Count 4.27 x10^6/uL (3.50-5.40) Hemoglobin 12.7 g/dL (12.0-15.5) Hematocrit 38.9 % (36.0-47.0) Mean Corpuscular Volume 91 fL (79-100) Mean Corpuscular Hemoglobin 30 pg (25-35) Mean Corpuscular Hemoglobin Concent 33 g/dL (31-37) Red Cell Distribution Width 13.8 % (11.5-14.5) Platelet Count 215 x10^3/uL (140-400) Neutrophils (%) (Auto) 75 % (31-73) Lymphocytes (%) (Auto) 15 % (24-48) Monocytes (%) (Auto) 10 % (0-9) Eosinophils (%) (Auto) 0 % (0-3) Basophils (%) (Auto) 1 % (0-3) Neutrophils # (Auto) 6.2 x10^3/uL (1.8-7.7) Lymphocytes # (Auto) 1.2 x10^3/uL (1.0-4.8) Monocytes # (Auto) 0.8 x10^3/uL (0.0-1.1) Eosinophils # (Auto) 0.0 x10^3/uL (0.0-0.7) Basophils # (Auto) 0.0 x10^3/uL (0.0-0.2) Sodium Level 142 mmol/L (136-145) Potassium Level 4.2 mmol/L (3.5-5.1) Chloride Level 107 mmol/L (98-107) Carbon Dioxide Level 30 mmol/L (21-32) Anion Gap 5 (6-14) Blood Urea Nitrogen 18 mg/dL (7-20) Creatinine 0.7 mg/dL (0.6-1.0) Estimated GFR (Cockcroft-Gault) 83.0 Glucose Level 90 mg/dL (70-99) Calcium Level 7.9 mg/dL (8.5-10.1) Comment Review of Relevant I have reviewed the following items helen (where applicable) has been applied. Medications: Current Medications Medications (Trade) Dose Ordered Sig/Karin Route PRN Reason Start Time Stop Time Status Last Admin Dose Admin Prednisone (Prednisone) 30 mg DAILY PO 07/04/20 12:30 07/05/20 09:12 Justicifation of Admission Dx: Justifications for Admission: Justification of Admission Dx: Yes Respiratory Failure: Severe Resp Distress FRANKLYN DOMINIQUE MD Jul 05, 2020 11:04
[2020-07-05 11:31] VITALS: BP 108/55
--- NOTE | 2020-07-05 13:35 | NUR ---
SARAH following. Reviewed chart and discussed with RN. [facility] and they have approved pt clinically for acute rehab. Jennifer to obtain authorization. Pt remains COVID pending and on . SARAH to continue following. Addendum: 07/05/20 at 1349 by JACKIE SMITH RN reported pt would now like to discharge home with HH. Jayne from [facility] stated they will take pt's insurance. SARAH updated Patient Choice of Vendor form. SW awaiting discharge orders. Pt has a 6 min walk from yesterday and can discharge with new 02 setup. SARAH to follow. Addendum: 07/05/20 at 1406 by JACKIE SMITH Pt will discharge tomorrow, 07/06/[address] Daly. SARAH notified Jayne from [facility]. Pt will need another 6 min walk ordered tomorrow. RN notified. SW to follow.
[2020-07-05 15:00] VITALS: BP 128/55
[2020-07-05 19:00] VITALS: BP 92/46
[2020-07-05 23:00] VITALS: BP 93/53
--- NOTE | 2020-07-06 00:09 | NUR ---
pt covid19 results negative, dr nugent notified, can transfer pt in am. pmrn
[2020-07-06 03:00] VITALS: BP 90/55
[2020-07-06] MEDS: BENZONATATE 100 MG CAPSULE. PO SCH (06:00)
[2020-07-06 07:00] VITALS: BP 106/53
[2020-07-06 07:41] LABS: BASO # 0.1 x10^3/uL (0.0-0.2); BASO % 1 % (0-3); EOS # 0.1 x10^3/uL (0.0-0.7); EOS % 1 % (0-3); HEMATOCRIT 39.3 % (36.0-47.0); LYMPH # 2.4 x10^3/uL (1.0-4.8); LYMPH % 31 % (24-48); MEAN CORPUSCULAR HEMOGLOBIN 30 pg (25-35); MEAN CORPUSCULAR HGB CONC 33 g/dL (31-37); MEAN CORPUSCULAR VOLUME 92 fL (79-100); MONO # 0.6 x10^3/uL (0.0-1.1); MONO % 8 % (0-9); NEUT # 4.5 x10^3/uL (1.8-7.7); NEUT % 59 % (31-73); PLATELET COUNT 174 x10^3/uL (140-400); RED BLOOD COUNT 4.27 x10^6/uL (3.50-5.40); RED CELL DISTRIBUTION WIDTH 14.3 % (11.5-14.5); WHITE BLOOD COUNT 7.6 x10^3/uL (4.0-11.0)
[2020-07-06 08:09] LABS: CALCIUM 8.1 mg/dL (8.5-10.1); CREATININE 0.4 mg/dL (0.6-1.0); GFR 158.3; POTASSIUM 4.3 mmol/L (3.5-5.1)
[2020-07-06] MEDS: ENOXAPARIN 40 MG/0.4 ML SYRINGE. SQ SCH (08:44)
[2020-07-06] MEDS: ZINC SULFATE 220 MG CAPSULE. PO SCH (08:44)
[2020-07-06] MEDS: NYSTATIN 100,000 UNITS/ML 5 ML ORAL.SUSP. SWSW SCH (08:44)
[2020-07-06] MEDS: LACTOBACILLUS RHAMNOSUS GG 1 CAPSULE. PO SCH (08:44)
[2020-07-06] MEDS: predniSONE 10 MG TABLET PO SCH (08:44)
[2020-07-06] MEDS: MULTIVITAMIN with MINERAL TABLET. PO SCH (08:44)
--- NOTE | 2020-07-06 09:51 | PDOC ---
[employer] PROGRESS NOTE Date of Service DOS: DATE: 07/06/20 TIME: 09:51 Chief Complaint Chief Complaint Acute hypoxic respiratory failure SARS- COV2 pneumonia Hypokalemia Diarrhea Transaminitis Severe protein calorie malnutrition History of Present Illness History of Present Illness 07/04: Seen on [facility] telemetry unit after transfer from ICU. On 3L NCO2. CXR reviewed with bilateraly multifocal infiltrates, improved from prior, but still present. She is very weak, able to walk 6 steps before tiring out, desaturated to require 4L NCO2 with minimal movement. Afebrile. 07/05: Afebrile. Feels a little stronger today. On 3 L nasal cannula oxygen. Feeling even stronger today. Afebrile. On 2 L nasal cannulated oxygen. After 6-minute walk she requires 2 L nasal cannula at rest and up to 8 L/min on exertion up to 150 feet. She is planning on discharge home with home health today. 07/03/2020 Patient seen and examined in the ICU Patient markedly improved Sitting comfortably in chair Off vapotherm, O2 sat 99% on nasal canula Chart reviewed Discussed with RN 07/02/20 Patient seen and examined in ICU Chart reviewed Discussed with RN Patient continues to improve. Today she was off the bed and sitting comfortably in a chair 91% O2 sat 07/01/20 Patient seen and examined in ICU Chart reviewed Discussed with RN Patient improving 06/30/20 Patient seen and examined in ICU Chart reviewed Discussed with RN Patient is improving 06/29/20 Patient seen and examined in ICU Chart reviewed Discussed with RN Patient was smiling and looking much better For the fist time last night she didn't require Bipap 06/28/20 Patient seen and examined in ICU Chart reviewed Discussed with RN Patient is improving No cough today Patient on Vapotherm 06/27/20 Patient seen and examined in ICU Discussed with RN Patient seems to be improving She has a bit of a cough Patient has received treatment with plasma and remdesivir 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 for worsening hypoxia after diagnosis of SARSCOV2. On 06/16/2020 she began having symptoms of diarrhea and shortness of breath and went to the ED to have COVID-19 testing, she was notified of the results on 06/17/2020 and asked to quarantine at home for 14 days. Over the course the next 5 days she became progressively more weak had fever and chills and began having myalgias and worsening diarrhea with little bit of abdominal pain. She returned to the ED on 06/21/2020 at [facility] and was found to be hypoxic. ABG on 06/21/2020 7.472/30 5.1/94.3 with HCO3 of 26.2 on nonrebreather 10 L labs on 06 21 sodium 135, K3.2, chloride 99, CO2 25, BUN 17, creatinine 1, glucose 115, lactate 1.9, calcium 8, ferritin 1491, bilirubin 0.4, AST 103, ALT 5 8, AL K phosphatase 62 troponin negative, CRP 129.6, total protein 6.3, albumin 2.7 prealbumin 9, lipase 185, B12 995, procalcitonin 0.40, TSH 1.427, d-dimer 1.16, WBC 7.1, Hb 14.1, platelets 302 chest x-ray on 06 21 read as worsening interstitial and airspace opacities in the right upper lobe and left lung base and worsening interstitial opacities in the right lung base compatible with multifocal pneumonia EKG appears normal sinus rhythm with heart rate approximately 85 bpm with normal axis some inferior T wave changes that are nonspecific no ST segment changes. 06/23: Seen in our ICU on Vapotherm. She is still complaining of weakness and diarrhea to me, 2 BM this morning. Afebrile. Still with cough today. O2 53 on Vapotherm. Remdesivir and convalescent FFP given 06/24: O2 63 on ABG this morning after BIPAP overnight. She feels a bit improved, appetite improved. No diarrhea yet today. Still weak with myalgias. 06/25:Less short of breath, on BiPAP with FiO2 70%. No chest pain or wheezing, no fevers. Still with some loose stools. LFTs normal today. WBC 10.2, Hb 12.7, platelets 4 2, NA 140 5K3.6 BUN 22, CR 0.6 ABG 7.48, 35, 69 BiPAP 70%. 06/26: Febrile 101.2 F. Seen on BiPAP /6 with 50% FiO2. She is very comfor table with this. Has not had a bowel movement a day and a half. Asking a 70 bedpan right now though. Appetite is decreased. Vitals/I&O Vitals/I&O: Vital Signs Date Time Temp Pulse Resp B/P (MAP) Pulse Ox O2 Delivery O2 Flow Rate FiO2 07/06/20 07:00 97.8 87 18 106/53 (70) 96 Room Air 97.8 07/05/20 23:00 3.0 I & O 07/05/20 07/05/20 07/06/20 15:00 23:00 07:00 Intake Total 320 ml Output Total 400 ml 700 ml Balance 320 ml -400 ml -700 ml Physical Exam Physical Exam: GENERAL: Propped up in bed, alert, calm, on 3 L. looks well HEENT: PERRL. Oral cavity dry, no thrush NECK: Supple LUNGS: Diminished aeration, no accessory muscle use HEART: S1, S2 regular. ABDOMEN: Soft and nontender EXTREMITIES: No edema or cyanosis. SKIN: No signs of rash. NEUROLOGIC: Alert and oriented x 3 PIV looks ok General: Alert, Oriented X3, Cooperative, No acute distress Heart: Regular rate Lungs: Clear Abdomen: Normal bowel sounds, Soft, No tenderness, No hepatosplenomegaly, No masses Extremities: No clubbing, No cyanosis, No edema, Normal pulses, No tenderness/swelling Skin: No rashes, No breakdown, No significant lesion Labs Labs: Laboratory Tests Test 07/06/20 05:25 White Blood Count 7.6 x10^3/uL (4.0-11.0) Red Blood Count 4.27 x10^6/uL (3.50-5.40) Hemoglobin 13.0 g/dL (12.0-15.5) Hematocrit 39.3 % (36.0-47.0) Mean Corpuscular Volume 92 fL (79-100) Mean Corpuscular Hemoglobin 30 pg (25-35) Mean Corpuscular Hemoglobin Concent 33 g/dL (31-37) Red Cell Distribution Width 14.3 % (11.5-14.5) Platelet Count 174 x10^3/uL (140-400) Neutrophils (%) (Auto) 59 % (31-73) Lymphocytes (%) (Auto) 31 % (24-48) Monocytes (%) (Auto) 8 % (0-9) Eosinophils (%) (Auto) 1 % (0-3) Basophils (%) (Auto) 1 % (0-3) Neutrophils # (Auto) 4.5 x10^3/uL (1.8-7.7) Lymphocytes # (Auto) 2.4 x10^3/uL (1.0-4.8) Monocytes # (Auto) 0.6 x10^3/uL (0.0-1.1) Eosinophils # (Auto) 0.1 x10^3/uL (0.0-0.7) Basophils # (Auto) 0.1 x10^3/uL (0.0-0.2) Sodium Level 143 mmol/L (136-145) Potassium Level 4.3 mmol/L (3.5-5.1) Chloride Level 108 mmol/L (98-107) Carbon Dioxide Level 23 mmol/L (21-32) Anion Gap 12 (6-14) Blood Urea Nitrogen 18 mg/dL (7-20) Creatinine 0.4 mg/dL (0.6-1.0) Estimated GFR (Cockcroft-Gault) 158.3 Glucose Level 57 mg/dL (70-99) Calcium Level 8.1 mg/dL (8.5-10.1) Comment Review of Relevant I have reviewed the following items helen (where applicable) has been applied. Justicifation of Admission Dx: Justifications for Admission: Justification of Admission Dx: Yes Respiratory Failure: Severe Resp Distress FRANKLYN DOMINIQUE MD Jul 06, 2020 09:51
--- NOTE | 2020-07-06 10:45 | PDOC ---
PULMONARY PROGRESS NOTES DATE: 07/06/20 TIME: 10:43 Subjective on nc 2 lpm feeling less weak today, up walking with walker feels better, sob better, has occ cough, no pain Vitals Vital Signs Date Time Temp Pulse Resp B/P (MAP) Pulse Ox O2 Delivery O2 Flow Rate FiO2 07/06/20 07:00 97.8 87 18 106/53 (70) 96 Room Air 97.8 07/05/20 23:00 3.0 Comments on 3 liters N/C appears comfortable alert no audible wheezing no accessory muscle use alert RRR, no edema No rash ROS: No Nausea, No Chest Pain, No Abdominal Pain, No Increase Cough Labs Laboratory Tests Test 07/04/20 19:45 07/05/20 03:50 07/06/20 05:25 Coronavirus (PCR) Not detected (Not Detected) White Blood Count 8.3 x10^3/uL (4.0-11.0) 7.6 x10^3/uL (4.0-11.0) Red Blood Count 4.27 x10^6/uL (3.50-5.40) 4.27 x10^6/uL (3.50-5.40) Hemoglobin 12.7 g/dL (12.0-15.5) 13.0 g/dL (12.0-15.5) Hematocrit 38.9 % (36.0-47.0) 39.3 % (36.0-47.0) Mean Corpuscular Volume 91 fL (79-100) 92 fL (79-100) Mean Corpuscular Hemoglobin 30 pg (25-35) 30 pg (25-35) Mean Corpuscular Hemoglobin Concent 33 g/dL (31-37) 33 g/dL (31-37) Red Cell Distribution Width 13.8 % (11.5-14.5) 14.3 % (11.5-14.5) Platelet Count 215 x10^3/uL (140-400) 174 x10^3/uL (140-400) Neutrophils (%) (Auto) 75 % (31-73) 59 % (31-73) Lymphocytes (%) (Auto) 15 % (24-48) 31 % (24-48) Monocytes (%) (Auto) 10 % (0-9) 8 % (0-9) Eosinophils (%) (Auto) 0 % (0-3) 1 % (0-3) Basophils (%) (Auto) 1 % (0-3) 1 % (0-3) Neutrophils # (Auto) 6.2 x10^3/uL (1.8-7.7) 4.5 x10^3/uL (1.8-7.7) Lymphocytes # (Auto) 1.2 x10^3/uL (1.0-4.8) 2.4 x10^3/uL (1.0-4.8) Monocytes # (Auto) 0.8 x10^3/uL (0.0-1.1) 0.6 x10^3/uL (0.0-1.1) Eosinophils # (Auto) 0.0 x10^3/uL (0.0-0.7) 0.1 x10^3/uL (0.0-0.7) Basophils # (Auto) 0.0 x10^3/uL (0.0-0.2) 0.1 x10^3/uL (0.0-0.2) Sodium Level 142 mmol/L (136-145) 143 mmol/L (136-145) Potassium Level 4.2 mmol/L (3.5-5.1) 4.3 mmol/L (3.5-5.1) Chloride Level 107 mmol/L (98-107) 108 mmol/L (98-107) Carbon Dioxide Level 30 mmol/L (21-32) 23 mmol/L (21-32) Anion Gap 5 (6-14) 12 (6-14) Blood Urea Nitrogen 18 mg/dL (7-20) 18 mg/dL (7-20) Creatinine 0.7 mg/dL (0.6-1.0) 0.4 mg/dL (0.6-1.0) Estimated GFR (Cockcroft-Gault) 83.0 158.3 Glucose Level 90 mg/dL (70-99) 57 mg/dL (70-99) Calcium Level 7.9 mg/dL (8.5-10.1) 8.1 mg/dL (8.5-10.1) Laboratory Tests Test 07/06/20 05:25 White Blood Count 7.6 x10^3/uL (4.0-11.0) Red Blood Count 4.27 x10^6/uL (3.50-5.40) Hemoglobin 13.0 g/dL (12.0-15.5) Hematocrit 39.3 % (36.0-47.0) Mean Corpuscular Volume 92 fL (79-100) Mean Corpuscular Hemoglobin 30 pg (25-35) Mean Corpuscular Hemoglobin Concent 33 g/dL (31-37) Red Cell Distribution Width 14.3 % (11.5-14.5) Platelet Count 174 x10^3/uL (140-400) Neutrophils (%) (Auto) 59 % (31-73) Lymphocytes (%) (Auto) 31 % (24-48) Monocytes (%) (Auto) 8 % (0-9) Eosinophils (%) (Auto) 1 % (0-3) Basophils (%) (Auto) 1 % (0-3) Neutrophils # (Auto) 4.5 x10^3/uL (1.8-7.7) Lymphocytes # (Auto) 2.4 x10^3/uL (1.0-4.8) Monocytes # (Auto) 0.6 x10^3/uL (0.0-1.1) Eosinophils # (Auto) 0.1 x10^3/uL (0.0-0.7) Basophils # (Auto) 0.1 x10^3/uL (0.0-0.2) Sodium Level 143 mmol/L (136-145) Potassium Level 4.3 mmol/L (3.5-5.1) Chloride Level 108 mmol/L (98-107) Carbon Dioxide Level 23 mmol/L (21-32) Anion Gap 12 (6-14) Blood Urea Nitrogen 18 mg/dL (7-20) Creatinine 0.4 mg/dL (0.6-1.0) Estimated GFR (Cockcroft-Gault) 158.3 Glucose Level 57 mg/dL (70-99) Calcium Level 8.1 mg/dL (8.5-10.1) Comments CXR, reviewed Bilateral pneumonia, more confluent in the right upper lobe. Impression . IMPRESSION: 1. Acute hypoxic respiratory failure secondary to COVID-19 pneumonia and acute lung injury--- improving 2. No significant tobacco history. 3. Abnormal chest x-ray consistent with COVID-19 pneumonia. 4. Mildly increased liver function tests. 5. hypoxemia-- improving 6. fever ,resolved Plan . titrate FiO2 to keep sat 92%. Monitor the course of treatment. dc solumedrol . change to PO steroid taper DVT prophylaxis. S/P convalescent plasma on 06/22/2020 and remdesivir. PT/OT -- OOB as tolerated IS at bedside 6 min walk today Discussed with RN and RT OK to D/C home with PT/OT and home oxygen STEPHEN VALADEZ MD Jul 06, 2020 10:45
[2020-07-06 11:28] VITALS: BP 92/48
--- NOTE | 2020-07-06 11:37 | SNU/HH DC ---
DISCHARGE WITH HOME HEALTH DISCHARGE INFORMATION: Discharge Date: Jul 06, 2020 Final Diagnosis: COVID 19 Pneumonia Condition on Discharge: Stable CODE STATUS: Code Status: Full HOME HEALTH: Face to Face: I certify this patient is under my care and that I, or a nurse practitioner or physician's respiratory therapy assistant working with me, had a face to face encounter that meets the physician face to face encounter requirements with this patient on 07/06/2020 Medical Complications: Pneumonia Fdc For: Assess & Educate Safety, Medication Management RN For Eval/Treatment: Yes Physical Therapy For: Evalulation/Treatment Occupational Therapy For: Evaluation/Treatment Pt Meets Homebound Status: Extreme weakness w/ amb., Limited distance walking POST DISCHARGE ORDERS: Activity Instructions for Disc: Resume previous activity Weight Bearing Status after Di: Full weight bearing DIET AFTER DISCHARGE: Regular TREATMENT/EQUIPMENT ORDERS: Discharge Respiratory Equipmen: Oxygen (2L at rest. 8L on exertion) CERTIFICATION STATEMENT: Certification Statement: Certification Statement: Based on the above finding, I certify that this patient is confined to the home and needs intermittent nursing home care, physical therapy and/or speech therapy, or continues to need occupational therapy.~ This patient is under my care, and I have initiated the establishment of the plan of care.~ This patient will be followed by myself or a community physician who will periodically review the plan of care. FRANKLYN DOMINIQUE MD Jul 06, 2020 11:37
[2020-07-06] MEDS ORDERED: PRED-220 PO (11:40)
[2020-07-06] MEDS ORDERED: NYST100054 SWSW (11:40)
--- NOTE | 2020-07-06 11:44 | PDOC3 ---
Discharge Summary Visit Information Date of Admission: Jun 22, 2020 Date of Discharge: Jul 06, 2020 Admitting Diagnosis: COVID 19 pneumonia Final Diagnosis COVID 19 pneumonia Brief Hospital Course Allergies Allergies Coded Allergies Type Severity Reaction Last Updated Verified No Known Drug Allergies 06/22/20 No Vital Signs Vital Signs Date Time Temp Pulse Resp B/P (MAP) Pulse Ox O2 Delivery O2 Flow Rate FiO2 07/06/20 11:28 97.0 99 16 92/48 (63) 98 Room Air 97.0 07/06/20 08:00 3.0 Lab Results Laboratory Tests Test 07/04/20 19:45 07/05/20 03:50 07/06/20 05:25 Coronavirus (PCR) Not detected (Not Detected) White Blood Count 8.3 x10^3/uL (4.0-11.0) 7.6 x10^3/uL (4.0-11.0) Red Blood Count 4.27 x10^6/uL (3.50-5.40) 4.27 x10^6/uL (3.50-5.40) Hemoglobin 12.7 g/dL (12.0-15.5) 13.0 g/dL (12.0-15.5) Hematocrit 38.9 % (36.0-47.0) 39.3 % (36.0-47.0) Mean Corpuscular Volume 91 fL (79-100) 92 fL (79-100) Mean Corpuscular Hemoglobin 30 pg (25-35) 30 pg (25-35) Mean Corpuscular Hemoglobin Concent 33 g/dL (31-37) 33 g/dL (31-37) Red Cell Distribution Width 13.8 % (11.5-14.5) 14.3 % (11.5-14.5) Platelet Count 215 x10^3/uL (140-400) 174 x10^3/uL (140-400) Neutrophils (%) (Auto) 75 % (31-73) 59 % (31-73) Lymphocytes (%) (Auto) 15 % (24-48) 31 % (24-48) Monocytes (%) (Auto) 10 % (0-9) 8 % (0-9) Eosinophils (%) (Auto) 0 % (0-3) 1 % (0-3) Basophils (%) (Auto) 1 % (0-3) 1 % (0-3) Neutrophils # (Auto) 6.2 x10^3/uL (1.8-7.7) 4.5 x10^3/uL (1.8-7.7) Lymphocytes # (Auto) 1.2 x10^3/uL (1.0-4.8) 2.4 x10^3/uL (1.0-4.8) Monocytes # (Auto) 0.8 x10^3/uL (0.0-1.1) 0.6 x10^3/uL (0.0-1.1) Eosinophils # (Auto) 0.0 x10^3/uL (0.0-0.7) 0.1 x10^3/uL (0.0-0.7) Basophils # (Auto) 0.0 x10^3/uL (0.0-0.2) 0.1 x10^3/uL (0.0-0.2) Sodium Level 142 mmol/L (136-145) 143 mmol/L (136-145) Potassium Level 4.2 mmol/L (3.5-5.1) 4.3 mmol/L (3.5-5.1) Chloride Level 107 mmol/L (98-107) 108 mmol/L (98-107) Carbon Dioxide Level 30 mmol/L (21-32) 23 mmol/L (21-32) Anion Gap 5 (6-14) 12 (6-14) Blood Urea Nitrogen 18 mg/dL (7-20) 18 mg/dL (7-20) Creatinine 0.7 mg/dL (0.6-1.0) 0.4 mg/dL (0.6-1.0) Estimated GFR (Cockcroft-Gault) 83.0 158.3 Glucose Level 90 mg/dL (70-99) 57 mg/dL (70-99) Calcium Level 7.9 mg/dL (8.5-10.1) 8.1 mg/dL (8.5-10.1) Laboratory Tests Test 07/06/20 05:25 White Blood Count 7.6 x10^3/uL (4.0-11.0) Red Blood Count 4.27 x10^6/uL (3.50-5.40) Hemoglobin 13.0 g/dL (12.0-15.5) Hematocrit 39.3 % (36.0-47.0) Mean Corpuscular Volume 92 fL (79-100) Mean Corpuscular Hemoglobin 30 pg (25-35) Mean Corpuscular Hemoglobin Concent 33 g/dL (31-37) Red Cell Distribution Width 14.3 % (11.5-14.5) Platelet Count 174 x10^3/uL (140-400) Neutrophils (%) (Auto) 59 % (31-73) Lymphocytes (%) (Auto) 31 % (24-48) Monocytes (%) (Auto) 8 % (0-9) Eosinophils (%) (Auto) 1 % (0-3) Basophils (%) (Auto) 1 % (0-3) Neutrophils # (Auto) 4.5 x10^3/uL (1.8-7.7) Lymphocytes # (Auto) 2.4 x10^3/uL (1.0-4.8) Monocytes # (Auto) 0.6 x10^3/uL (0.0-1.1) Eosinophils # (Auto) 0.1 x10^3/uL (0.0-0.7) Basophils # (Auto) 0.1 x10^3/uL (0.0-0.2) Sodium Level 143 mmol/L (136-145) Potassium Level 4.3 mmol/L (3.5-5.1) Chloride Level 108 mmol/L (98-107) Carbon Dioxide Level 23 mmol/L (21-32) Anion Gap 12 (6-14) Blood Urea Nitrogen 18 mg/dL (7-20) Creatinine 0.4 mg/dL (0.6-1.0) Estimated GFR (Cockcroft-Gault) 158.3 Glucose Level 57 mg/dL (70-99) Calcium Level 8.1 mg/dL (8.5-10.1) Brief Hospital Course 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 for worsening hypoxia after diagnosis of SARSCOV2. On 06/16/2020 she began having symptoms of diarrhea and shortness of breath and went to the ED to have COVID-19 testing, she was notified of the results on 06/17/2020 and asked to quarantine at home for 14 days. Over the course the next 5 days she became progressively more weak had fever and chills and began having myalgias and worsening diarrhea with little bit of abdominal pain. She returned to the ED on 06/21/[address] [facility] and was found to be hypoxic. ABG on 06/21/2020 7.472/30 5.1/94.3 with HCO3 of 26.2 on nonrebreather 10 L labs on 06 21 sodium 135, K3.2, chloride 99, CO2 25, BUN 17, creatinine 1, glucose 115, lactate 1.9, calcium 8, ferritin 1491, bilirubin 0.4, AST 103, ALT 5 8, AL K phosphatase 62 troponin negative, CRP 129.6, total protein 6.3, albumin 2.7 prealbumin 9, lipase 185, B12 995, procalcitonin 0.40, TSH 1.427, d-dimer 1.16, WBC 7.1, Hb 14.1, platelets 302 chest x-ray on 06 21 read as worsening interstitial and airspace opacities in the right upper lobe and left lung base and worsening interstitial opacities in the right lung base compatible with multifocal pneumonia EKG appears normal sinus rhythm with heart rate approximately 85 bpm with normal axis some inferior T wave changes that are nonspecific no ST segment changes. 06/23: Seen in our ICU on Vapotherm. She is still complaining of weakness and diarrhea to me, 2 BM this morning. Afebrile. Still with cough today. O2 53 on Vapotherm. Remdesivir and convalescent FFP given 06/24: O2 63 on ABG this morning after BIPAP overnight. She feels a bit improved, appetite improved. No diarrhea yet today. Still weak with myalgias. 06/25:Less short of breath, on BiPAP with FiO2 70%. No chest pain or wheezing, no fevers. Still with some loose stools. LFTs normal today. WBC 10.2, Hb 12.7, platelets 4 2, NA 140 5K3.6 BUN 22, CR 0.6 ABG 7.48, 35, 69 BiPAP 70%. 06/26: Febrile 101.2 F. Seen on BiPAP 01/05 with 50% FiO2. She is very comfortable with this. Has not had a bowel movement a day and a half. Asking a 70 bedpan right now though. Appetite is decreased. 06/27: Patient has received treatment with plasma and remdesivir 06/28: Patient on Vapotherm 06/29-: For the fist time last night she didn't require Bipap and continues to improve 07/03: Transitioned to NCO2 from vapotherm 07/04: Seen on med telemetry unit after transfer from ICU. On 3L NCO2. CXR reviewed with bilateraly multifocal infiltrates, improved from prior, but still present. She is very weak, able to walk 6 steps before tiring out, desaturated to require 4L NCO2 with minimal movement. Afebrile. 07/05: Afebrile. Feels a little stronger today. On 3 L nasal cannula oxygen. On nystatin for thrush, oral steroids Feeling even stronger today. Afebrile. On 2 L nasal cannulated oxygen. After 6-minute walk she requires 2 L nasal cannula at rest and up to 8 L/min on exertion up to 150 feet. She is planning on discharge home with home health today. Problem List: Acute hypoxic respiratory failure SARS- COV2 pneumonia Hypokalemia Diarrhea Transaminitis Severe protein calorie malnutrition Thrush Greater than 30 minutes spent on d/c home with home health Discharge Information Condition at Discharge: Improved Follow Up: Weeks Disposition/Orders: D/C to Home w/ HH Scheduled Nystatin (Nystatin) 100,000 Unit/1 Ml Oral.susp, 5 ML SWSW [id number] for Thrush for 10 Days, #200 Prescribed by: FRANKLYN DOMINIQUE MD on 07/06/20 1140 Prednisone (Prednisone ) 10 Mg Tablet, 30 MG PO DAILY for COVID 19 for 5 Days, #15 Prescribed by: FRANKLYN DOMINIQUE MD on 07/06/20 1140 Justicifation of Admission Dx: Justifications for Admission: Justification of Admission Dx: Yes Respiratory Failure: Severe Resp Distress FRANKLYN DOMINIQUE MD Jul 06, 2020 11:44
--- NOTE | 2020-07-06 12:35 | NUR ---
SW following. Reviewed chart and discussed with RN. Pt COVID negative. Pt on 2l 02 at rest and 6l 02 with exertion. SARAH phoned and faxed 6 min walk and orders as well as clinicals to Lelo at [facility]. SARAH also notified Luis with [facility] of discharge at 1245 so they can do home 02 setup. HH orders provided to Jayne with [facility] transportation department to take pt to her car at [facility]. Pt applying for disability. SARAH notified Sabrina with [facility] as Dr. Daly signed the paperwork and left it on pt's chart. RN notified. No further SW needs at this time. Addendum: 07/06/20 at 1243 by JACKIE SMITH Lelo from [facility] authorized tank to be sent with pt for transport home. Addendum: 07/07/20 at 0942 by JACKIE SMITH Pt called to say 02 concentrator was not delivered yesterday. Pt did not realize the phone number for [employer] was on the tank. SARAH spoke with Luis who stated the cargo service supervisor called the number of the fs which is not pt's current number. Pt's phone number is [phone]. Luis reported cargo service supervisor in route to setup home 02.
--- NOTE | 2020-07-06 12:45 | NUR ---
Discharge Note: KAREN OLIVERA Discharge instructions and discharge home medications reviewed with Patient and a copy given. All questions have been answered and understanding verbalized. The following instructions and handouts were given: F/U with PCP within one week. Oxygen use at home given to patient. Discontinued lines and drains: Peripheral IV intact. Patient discharged to Home w/services with Self via Wheelchair
== END 2020-07-06 12:45 | disposition home health service (06) | DRG 177 ==
LOC: 1 WEST ICU 09:59 → 6 SOUTH 07-03 19:01
PROVIDERS: ADMIT Internal Medicine; ATTEND Internal Medicine
PROC: XW13325 Transfusion of Convalescent Plasma (Nonautologous) into Peripheral Vein, Percutaneous Approach, New Technology Group 5 (ICD-10-PCS; 2020-06-22)
PROC: XW033E5 Introduction of Remdesivir Anti-infective into Peripheral Vein, Percutaneous Approach, New Technology Group 5 (ICD-10-PCS; 2020-06-22)
PROC: 5A09457 Assistance with Respiratory Ventilation, 24-96 Consecutive Hours, Continuous Positive Airway Pressure (ICD-10-PCS; principal; 2020-06-24)
PROC: 5A09357 Assistance with Respiratory Ventilation, Less than 24 Consecutive Hours, Continuous Positive Airway Pressure (ICD-10-PCS; 2020-06-27)
PROC: 5A09357 Assistance with Respiratory Ventilation, Less than 24 Consecutive Hours, Continuous Positive Airway Pressure (ICD-10-PCS; 2020-06-28)
PROC: 5A09357 Assistance with Respiratory Ventilation, Less than 24 Consecutive Hours, Continuous Positive Airway Pressure (ICD-10-PCS; 2020-06-29)
DX: U07.1 COVID-19 (principal); J96.01 Acute respiratory failure with hypoxia; J12.89 Other viral pneumonia; E43 Unspecified severe protein-calorie malnutrition; B37.0 Candidal stomatitis; E87.6 Hypokalemia; E66.9 Obesity, unspecified; Z68.32 Body mass index [BMI] 32.0-32.9, adult; Z87.11 Personal history of peptic ulcer disease; Z98.51 Tubal ligation status; Z87.891 Personal history of nicotine dependence
CPT/HCPCS: 36415; 36600; 71045; 80048; 80053; 81001; 82805; 83880; 85007; 85025; 85379; 85610; 86850; 86900; 86901; 86927; 87040; 87086; 87106; 94618; 94660; 94760; 99285; G0238; J1650; J2543; J2920; J3480; J7512; 97530-GO; 97530-GP; 97535-GO; G0378; P9017; U0003-CS